=== PATIENT | female | born 1940 | race Caucasian/White ===

== ENCOUNTER → 2016-08-10 | Outpatient (CLI) | payer MEDICARE, BC | END | disposition home or self-care (01) | LOC: MAMMO 09:58 | PROVIDERS: ATTEND Family Medicine | DX: Z12.31 Encounter for screening mammogram for malignant neoplasm of breast (principal) ==

== ENCOUNTER → 2016-08-30 | Outpatient (CLI) | payer MEDICARE, BC | END | disposition home or self-care (01) | LOC: GMAB 11:33 | PROVIDERS: ATTEND Family Medicine | DX: E11.9 Type 2 diabetes mellitus without complications (principal); I10 Essential (primary) hypertension ==

== ENCOUNTER → 2017-01-17 | Outpatient (CLI) | payer MEDICARE, BC | END | disposition home or self-care (01) | LOC: GMAB 12:12 | PROVIDERS: ATTEND Family Medicine | DX: R06.02 Shortness of breath (principal) ==

== ENCOUNTER 2017-01-18 11:20 | Inpatient (IN) | payer MEDICARE, BC ==
--- NOTE | 2017-01-18 12:01 | HP ---
SUPERVISING PHYSICIAN: Raj Fuentes MD CHIEF COMPLAINT: Fever, shortness of breath. HISTORY OF PRESENT ILLNESS: Ms. Gomez is a 76-year-old, female patient of Dr. Anderson's. She started having some upper respiratory symptoms this week that included shortness of breath, coughing, fever and chills. She saw Dr. Anderson yesterday in the clinic at which time she did have a fever of 100.3. Saturation was 87% on room air. Flu swab and strep screen were completed, which were both negative. Lab work was also completed with a CBC and it showed her white count was 7,800, but she had a left shift. Radiographic studies were completed as well and per radiologic interpretation of two view chest, there was noted complete opacification of the left hemithorax which actually is chronic for her. She has had a total left lobectomy, but consolidations were noted. Dr. Anderson suggested that the patient be admitted to the hospital given that her saturation was 87% and she was significantly showing to be ill. However, the patient refused and requested to be treated at home. At that time, she was given a Rocephin shot and a prescription for Omnicef and Z-Vivek as well as DuoNeb nebulizer treatments. She was also given a prescription for oxygen. Apparently, she was unable to get the DuoNeb treatments or the oxygen overnight and progressively worsened. She presented back to Dr. Anderson's clinic this morning with worsening symptoms and showing a temperature of 100.6 with saturation 81% on room air. Given the past laboratory finding and clinical examination, Dr. Anderson requested that the patient be admitted to the hospital for treatment with more aggressive bronchodilator treatment, oxygen and initiation of antibiotic treatment for concern for developing pneumonia with the patient having failed to respond to outpatient treatment significantly with worsening symptoms. The patient is being directed admitted to the Medical/Surgical Floor. PAST MEDICAL HISTORY: 1. Type 2 diabetes mellitus. 2. Gastroesophageal reflux disease. 3. Hypertension. 4. Hypothyroidism. 5. Past pericardial effusions. 6. Lupus. 7. Lung cancer with a lung resection and left pneumonectomy in 2004. 8. History of syncope with a loop monitor in place, followed by Dr. Manuel. 9. Chronic obstructive pulmonary disease. PAST SURGICAL HISTORY: 1. Appendectomy. 2. Cholecystectomy. 3. Hernia repair. 4. Hysterectomy. 5. Lung resection with left pneumonectomy in 2004. 6. Previous pericardial window in 2005. MEDICATIONS: 1. Metformin 1000 mg b.i.d. 2. Calcium 200 mg daily. 3. Invokana 300 mg daily. 4. Vitamin B complex 1 tablet daily. 5. Aspirin 81 mg daily. 6. Ascorbic acid 500 mg daily. 7. Gabapentin 300 mg twice daily. 8. Lisinopril 20 mg daily. 9. Lantus 43 units at bedtime. 10. Hydrochlorothiazide 25 mg daily. 11. Multivitamin 1 tablet daily. 12. Metoprolol 25 mg b.i.d. 13. Meloxicam 15 mg at bedtime. 14. Evista 60 mg daily. 15. Potassium chloride 10 mEq daily. ALLERGIES: NO KNOWN DRUG ALLERGIES. FAMILY HISTORY: Father at age 68 due to lung cancer, diabetes and heart disease. Mother at age 68 due to emphysema. SOCIAL HISTORY: The patient is retired. She has worked as previous process engineer and seamstress. She is . She lives in [place], [place]. She does have a history of past cigarette smoking and quit in 1991. She has never drank alcohol. REVIEW OF SYSTEMS: CONSTITUTIONAL: Positive for chills, fever, but negative for fatigue or unintentional weight loss. RESPIRATORY: Positive for recent cough with increasing purulent sputum and increasing dyspnea at rest and hypoxia on room air. CARDIOVASCULAR: Denies chest pain or palpitations. She does have a remote history of syncopal episodes. GASTROINTESTINAL: Denies constipation, diarrhea, abdominal pain. GENITOURINARY: Denies dysuria, hematuria or other urinary symptoms. NEUROLOGIC: She denies ataxia, headaches or other neurologic symptoms. PHYSICAL EXAMINATION: VITAL SIGNS: From the clinic prior to admission, temperature 100.6. Blood pressure 160/86. Pulse 109. Respirations 16. O2 saturation 81% on room air. Admission weight 92.2 kg. GENERAL: The patient well-developed, well-nourished and appears to be in no acute distress. HEENT: Tympanic membranes clear bilaterally. Oropharynx is pink, moist without any lesions. NECK: Supple, nontender with full range of motion. CHEST: Breath sounds significantly decreased on the left. There is some notable expiratory wheezing on the right with just mild increased respiratory effort, but no accessory muscles utilized. CARDIOVASCULAR: Regular rate and rhythm without any appreciable murmurs, gallops, or rubs. ABDOMEN: Obese, but soft, nontender. Positive bowel sounds. EXTREMITIES: There is no cyanosis, clubbing or edema. NEUROLOGIC: The patient is alert and oriented times three. Cranial nerves II- XII are grossly intact. Facial features are symmetrical. Extraocular movements are within normal limits. There is no nystagmus noted. LABORATORY: CBC on admission showed white count 10,400 with hemoglobin 14.4, hematocrit 43.0, platelet count 131, left shift on the differential. Coagulation studies showed PT 12.6, PT-T 28.9. Chemistries showed normal electrolytes with carbon dioxide 29, BUN 18, creatinine 0.8, glucose 96, lactic acid 1.5. Liver functions within normal limits. Urinalysis showed greater than 300 protein, 500 glucose, 40 ketones. Microscopic showed 0 to 1 RBCs, 5 to 10 WBCs, 3 to 5 epithelials and rare bacteria. Digoxin level less than 0.3. MICROBIOLOGY: Sputum culture pending. Blood cultures pending. Strep screen in the clinic was negative for group A strep. Influenza A and B in the clinic was negative. RADIOLOGY: Chest x-ray on admission per radiologic interpretation of two view chest showed status post pneumonectomy with complete opacification of the left thorax, stable, with chronic interstitial thickening and scarring of the right lung without acute consolidative infiltrates. ASSESSMENT: 1. Acute exacerbation of chronic obstructive pulmonary disease having failed to respond to outpatient treatment for acute bronchitis, now concerning for developing community- acquired pneumonia. 2. Hypoxia as noted on room air saturations of 81%, secondary to #1. 3. Febrile illness, probably secondary to worsening acute bronchitis with developing right sided community-acquired pneumonia with flu swabs and strep screens being negative with sputum cultures pending. 4. Mild dehydration secondary to ongoing febrile illness. 5. Type 2 diabetes, on both oral and insulin therapy. 6. Gastroesophageal reflux disease. 7. Hypertension. 8. Hypothyroidism. 9. History of lupus. 10. History of left sided lung cancer with a total pneumonectomy in 2004. PLAN: The patient will be directly admitted to the hospital for initiation of treatment for her worsening exacerbation of chronic obstructive pulmonary disease with concern for developing pneumonia. She will be started on parenteral antibiotics to include Rocephin and azithromycin as well as corticosteroids. She will be provided oxygen per protocol to maintain O2 saturations 92% to 94%. She will be on DVT prophylaxis as per protocol. We will collect blood cultures prior to administration of antibiotics. We will start her on some IV fluids to help with the underlying dehydration with normal saline with 20 mEq of potassium at 80 mL an hour. We will also put her on Protonix for gastric protection. She will be on insulin sliding scale per protocol as well as long-acting insulin with Levemir as appropriate based on blood sugars. We will resume home medications once they have been updated and verified in the electronic medical record. We will anticipate her length of stay to be at least 2 to 3 days until she is clinically stable. Until then, we will continue to monitor the patient closely and treat appropriately. Once discharged, she will need close clinical followup with Dr. Anderson, her primary care provider. [facility][id number] [facility]
[2017-01-18] MEDS ORDERED: ACETAMINOPHEN 325 MG TAB PO PRN (12:05)
[2017-01-18] MEDS ORDERED: SODIUM CHLORIDE 0.9% (FLUSH) 10 ML SYG IV PRN (12:05)
[2017-01-18] MEDS ORDERED: ALBUTEROL SULFATE 2.5 MG/3 ML VIAL NEB PRN (12:05)
[2017-01-18] MEDS ORDERED: IPRATROPIUM/ALBUTEROL 3 ML VIAL NEB ONE (12:11)
[2017-01-18] MEDS: IPRATROPIUM/ALBUTEROL 3 ML VIAL INH SCH ×3 (12:21→19:51)
[2017-01-18] MEDS ORDERED: SODIUM CHL 0.9% 50ML MIN-BAG+ 50 ML IVPB ONE (13:11)
[2017-01-18] MEDS ORDERED: cefTRIAXone SODIUM 1 GM VIAL ONE (13:11)
[2017-01-18] MEDS: cefTRIAXone SODIUM 1 GM in SODIUM CHL 0.9% 50ML MIN-BAG+ 50 ML IVPB SCH (13:14)
[2017-01-18] MEDS: IV SET AND CAP CHANGE INJ INJ SCH (13:15)
[2017-01-18] MEDS ORDERED: DEXTROSE 50% 25 GM/50 ML SYG IV PRN (13:44)
[2017-01-18] MEDS ORDERED: GLUCAGON INJ 1 MG VIAL SUBCU PRN (13:44)
--- NOTE | 2017-01-18 13:47 | PCM.CORE ---
Physician DVT/VTE - Nurse DVT Assessment & Total Each Risk Factor Represents 3 Points: Age over 75 years, Medical PT with Hx of [place], CHF, Severe infection/sepsis Each Risk Factor Represents 2 Points: Malignancy (present/past) Each Risk Factor is 1 Point: Obesity (BMI >25), Serious Lung disease (pnemonia < 1month, COPD, emphysema,etc) DVT Assessment Score: 10 - 5 or more Very High Risk Treatments: Early Ambulation *, Sequential Compression Device Pharmacological: Enoxaparin 40mg SQ Daily
--- NOTE | 2017-01-18 13:48 | RAD ---
EXAM DESCRIPTION: Chest,2 Views CLINICAL HISTORY: Pneumonia COMPARISON: September 30, 2015 FINDINGS: Frontal and lateral views of the chest. Wireless electronic device seen over the left hemithorax. The patient is status post left pneumonectomy with complete opacification of the left hemithorax. Surgical clips are again seen in the left hemithorax. Again seen is stable mediastinal shift from the right to the left. Cardiac silhouette is obscured by overlying left hemithorax opacification. Chronic interstitial thickening again demonstrated of the right lung. No definite focal consolidative infiltrates demonstrated of the right lung. Right costophrenic angle is sharp. No pneumothorax. IMPRESSION: 1. Patient is status post left pneumonectomy with complete opacification of the left thorax, stable. 2. Chronic interstitial thickening/scarring of the right lung without acute consolidative infiltrates. 3. Other findings as above. Electronically signed by: Benjamin Mcqueen MD 01/18/2017 1:47 PM [facility]
[2017-01-18] MEDS ORDERED: SODIUM CHLORIDE 0.9% 250ML 250 ML ONE (14:09)
[2017-01-18] MEDS ORDERED: AZITHROMYCIN IV 500 MG VIAL IVPB ONE (14:09)
[2017-01-18] MEDS: AZITHROMYCIN IV 500 MG in SODIUM CHLORIDE 0.9% 250ML 250 ML IVPB SCH (14:11)
[2017-01-18] MEDS: ENOXAPARIN SODIUM 40 MG/0.4 ML SYG SUBCU SCH (14:11)
[2017-01-18] MEDS ORDERED: methylPREDNISolone SODIUM SUC 125 MG/2 ML VIAL IV ONE ×2 (14:23→16:30)
[2017-01-18] MEDS: INSULIN LISPRO 100 UNITS/ML PEN SUBCU SCH ×2 (16:36→21:00)
[2017-01-18] MEDS: METOPROLOL TARTRATE 25 MG TAB PO SCH (16:37)
[2017-01-18] MEDS: metFORMIN HCL 500 MG TAB PO SCH (16:37)
[2017-01-18] MEDS: KCL 20 MEQ/NS 1,000 ML IVS PRN (16:37)
[2017-01-18] MEDS ORDERED: PANTOPRAZOLE SODIUM IV 40 MG VIAL ONE (20:02)
[2017-01-18] MEDS: GABAPENTIN 300 MG CAP PO SCH (20:59)
[2017-01-18] MEDS: LISINOPRIL 10 MG TAB PO SCH (20:59)
[2017-01-18] MEDS: MELOXICAM 7.5 MG TAB PO SCH (20:59)
[2017-01-18] MEDS: methylPREDNISolone SODIUM SUC 40 MG/ML VIAL IV SCH (21:00)
[2017-01-18] MEDS ORDERED: METFORMIN HCL 1000 MG PO SCH (21:00)
[2017-01-19] MEDS: methylPREDNISolone SODIUM SUC 40 MG/ML VIAL IV SCH ×2 (02:50→08:05)
[2017-01-19] MEDS: KCL 20 MEQ/NS 1,000 ML IVS PRN (03:56)
[2017-01-19] MEDS ORDERED: PANTOPRAZOLE SODIUM IV 40 MG VIAL IV SCH (06:30)
[2017-01-19] MEDS: INSULIN LISPRO 100 UNITS/ML PEN SUBCU SCH ×4 (06:57→20:59)
[2017-01-19] MEDS ORDERED: ASPIRIN (CHEWABLE) 81 MG TAB ONE (07:02)
[2017-01-19] MEDS ORDERED: B COMPLEX 1 EA TAB ONE (07:02)
[2017-01-19] MEDS ORDERED: CALCIUM CARBONATE-VITAMIN D 500 MG TAB ONE (07:03)
[2017-01-19] MEDS ORDERED: ASCORBIC ACID 500 MG TAB ONE (07:03)
[2017-01-19] MEDS ORDERED: hydroCHLOROthiazide 25 MG TAB ONE (07:04)
[2017-01-19] MEDS: IPRATROPIUM/ALBUTEROL 3 ML VIAL INH SCH ×4 (07:23→20:40)
[2017-01-19] MEDS: metFORMIN HCL 500 MG TAB PO SCH ×2 (07:27→16:42)
[2017-01-19] MEDS: METOPROLOL TARTRATE 25 MG TAB PO SCH ×2 (07:27→16:42)
[2017-01-19] MEDS ORDERED: POTASSIUM CHLORIDE 10 MEQ TAB PO SCH (07:30)
--- NOTE | 2017-01-19 07:43 | RAD ---
EXAM DESCRIPTION: Chest,2 Views CLINICAL HISTORY: Pneumonia COMPARISON: January 18, 2017 FINDINGS: Two-view chest x-ray shows diffuse opacification of the left hemithorax with shift of the cardiomediastinal silhouette towards the left consistent with left pneumonectomy. Stable from previous. Cardiac monitoring device is seen over the lower left chest. Right lung is hyperinflated. Mild increased interstitial markings are seen similar to slightly improved in the right lower lobe compared previous exam. No new infiltrate or consolidation. No right pleural effusion. Osseous structures are unremarkable. IMPRESSION: Stable left pneumonectomy changes. Slightly less pronounced interstitial changes in the right lower lobe compared previous. Electronically signed by: Broderick Ortiz MD 01/19/2017 7:42 AM [employer]
[2017-01-19] MEDS: ENOXAPARIN SODIUM 40 MG/0.4 ML SYG SUBCU SCH (08:05)
[2017-01-19] MEDS: CALCIUM CARBONATE-VITAMIN D 500 MG TAB PO SCH (08:05)
[2017-01-19] MEDS: GABAPENTIN 300 MG CAP PO SCH ×2 (08:06→20:59)
[2017-01-19] MEDS: hydroCHLOROthiazide 25 MG TAB PO SCH (08:06)
[2017-01-19] MEDS: B COMPLEX 1 EA TAB PO SCH (08:06)
[2017-01-19] MEDS: ASCORBIC ACID 500 MG TAB PO SCH (08:06)
[2017-01-19] MEDS: ASPIRIN EC 81 MG TAB PO SCH (08:07)
[2017-01-19] MEDS: NON-FORMULARY MEDICATION 1 EA MIS (Canagliflozin [Invokana] 300 MG) PO SCH (08:11)
[2017-01-19] MEDS: NON-FORMULARY MEDICATION 1 EA MIS (Raloxifene Hcl [Evista] 60 MG) PO SCH (08:12)
[2017-01-19] MEDS: SODIUM CHLORIDE 0.9% (FLUSH) 10 ML SYG IV SCH ×2 (08:41→21:00)
[2017-01-19] MEDS ORDERED: CALCIUM 200 MG PO SCH (09:00)
[2017-01-19] MEDS: BIFIDOBACTERIUM INFANTIS 4 MG CAP PO SCH ×2 (10:32→20:59)
--- NOTE | 2017-01-19 10:46 | PN ---
DATE: 01/19/17 SUBJECTIVE: The patient is currently on her first day after admission to the hospital. She states she feels a little better and a little improved ability to function with less coughing and shortness of breath. She was getting progressively worse and failed outpatient management in the clinic. Chest x- ray today also showed some improvement. She is not on home oxygen and will need to have further evaluation as to whether she requires this as she goes home. She has had a previous history of a left pneumonectomy because of cancer a number of years ago. Appetite is fairly good. OBJECTIVE: VITAL SIGNS: Afebrile. Pulse 71. Blood pressure 125/76. Pulse oximetry 99% on 3 liters and she is cut down to 1.5 liters with repeat evaluation and ambulation studies to be initiated. LUNGS: Primarily on the right side of the chest and she does have some end- expiratory high frequency wheezing occasionally noted, especially anteriorly. Less coughing today. HEART: Tones are regular, though somewhat distance because of the left pneumonectomy. LABORATORY: White count stable at 7,700 with 91% neutrophils. Chemistries show potassium is up from 3.8 to 5.2 and BUN from 18 to 25, creatinine from 0.88 to 1.14. Glucose is 143. Osmolality increased up to 296. Sputum culture is pending. Blood cultures negative to date. Chest x-ray shows some slight improvement in the right lower lobe interstitial changes previously noted. ASSESSMENT: 1. Chronic obstructive pulmonary disease with an acute exacerbation with associated acute bronchitis, coughing and failing to respond to outpatient therapy. 2. Possible right lower lobe community acquired pneumonia, showing some radiographic and clinical improvement after initiation of therapy with Rocephin and azithromycin and final cultures pending. 3. Hypoxia initially noted with further investigation to continue to see if the patient will require home oxygen, which she has not been on in the past. 4. Acute bronchitis, having failed outpatient therapy with sputum culture pending. 5. Febrile illness, probably related to the respiratory infection as described above with cultures pending. 6. Mild dehydration, probably contributed to by the febrile illness. 7. Chronic type 2 diabetes, on oral and insulin therapy. 8. History of gastroesophageal reflux disease. 9. History of hypertension. 10. Hypothyroidism on supplementation. 11. History of lupus. 12. History of left sided lung cancer with a total pneumonectomy in 2004 because of lung cancer on the left. PLAN: We will continue current treatment course. Increase activity level with ambulation studies by Respiratory. Await sputum culture. Add Align probiotics to medication administration. Follow closely and adjust oxygen to what is required and to allow us to determine whether she will require oxygen at home. Elevated potassium is noted and will be followed closely with holding back on potassium supplementation at this time. Reevaluate in the morning. #[id number] [facility]
[2017-01-19] MEDS ORDERED: SODIUM CHL 0.9% 50ML MIN-BAG+ 50 ML IVPB ONE (11:57)
[2017-01-19] MEDS ORDERED: cefTRIAXone SODIUM 1 GM VIAL ONE (11:57)
[2017-01-19] MEDS: DIGOXIN 0.25 MG TAB PO SCH (11:59)
[2017-01-19] MEDS: cefTRIAXone SODIUM 1 GM in SODIUM CHL 0.9% 50ML MIN-BAG+ 50 ML IVPB SCH (12:01)
[2017-01-19] MEDS ORDERED: AZITHROMYCIN IV 500 MG VIAL IVPB ONE (13:19)
[2017-01-19] MEDS ORDERED: SODIUM CHLORIDE 0.9% 250ML 250 ML ONE (13:19)
[2017-01-19] MEDS: AZITHROMYCIN IV 500 MG in SODIUM CHLORIDE 0.9% 250ML 250 ML IVPB SCH (13:20)
[2017-01-19] MEDS: MELOXICAM 7.5 MG TAB PO SCH (20:59)
[2017-01-19] MEDS: LISINOPRIL 10 MG TAB PO SCH (20:59)
[2017-01-20] MEDS ORDERED: PANTOPRAZOLE SODIUM TAB 40 MG PO ONE (05:05)
[2017-01-20] MEDS: PANTOPRAZOLE SODIUM TAB 40 MG PO SCH (06:37)
[2017-01-20] MEDS: INSULIN LISPRO 100 UNITS/ML PEN SUBCU SCH ×4 (07:48→20:53)
[2017-01-20] MEDS: METOPROLOL TARTRATE 25 MG TAB PO SCH ×2 (07:48→16:57)
[2017-01-20] MEDS: metFORMIN HCL 500 MG TAB PO SCH ×2 (07:48→16:57)
[2017-01-20] MEDS: ENOXAPARIN SODIUM 40 MG/0.4 ML SYG SUBCU SCH (08:48)
[2017-01-20] MEDS: B COMPLEX 1 EA TAB PO SCH (08:48)
[2017-01-20] MEDS: CALCIUM CARBONATE-VITAMIN D 500 MG TAB PO SCH (08:48)
[2017-01-20] MEDS: BIFIDOBACTERIUM INFANTIS 4 MG CAP PO SCH ×2 (08:49→20:52)
[2017-01-20] MEDS: ASPIRIN EC 81 MG TAB PO SCH (08:49)
[2017-01-20] MEDS: NON-FORMULARY MEDICATION 1 EA MIS (Raloxifene Hcl [Evista] 60 MG) PO SCH (08:49)
[2017-01-20] MEDS: ASCORBIC ACID 500 MG TAB PO SCH (08:49)
[2017-01-20] MEDS: hydroCHLOROthiazide 25 MG TAB PO SCH (08:49)
[2017-01-20] MEDS: NON-FORMULARY MEDICATION 1 EA MIS (Canagliflozin [Invokana] 300 MG) PO SCH (08:49)
[2017-01-20] MEDS: SODIUM CHLORIDE 0.9% (FLUSH) 10 ML SYG IV SCH ×2 (08:49→20:54)
[2017-01-20] MEDS: GABAPENTIN 300 MG CAP PO SCH ×2 (08:49→20:52)
[2017-01-20] MEDS: IPRATROPIUM/ALBUTEROL 3 ML VIAL INH SCH ×4 (09:00→19:35)
[2017-01-20] MEDS ORDERED: SODIUM CHL 0.9% 50ML MIN-BAG+ 50 ML IVPB ONE (11:12)
[2017-01-20] MEDS ORDERED: AZITHROMYCIN 250 MG TAB PO ONE (11:12)
[2017-01-20] MEDS ORDERED: cefTRIAXone SODIUM 1 GM VIAL ONE (11:12)
[2017-01-20] MEDS: DIGOXIN 0.25 MG TAB PO SCH (11:27)
[2017-01-20] MEDS: cefTRIAXone SODIUM 1 GM in SODIUM CHL 0.9% 50ML MIN-BAG+ 50 ML IVPB SCH (11:30)
[2017-01-20] MEDS ORDERED: TEMAZEPAM 15 MG CAP PO PRN (13:17)
[2017-01-20] MEDS: predniSONE 10 MG TAB PO SCH (13:58)
[2017-01-20] MEDS: AZITHROMYCIN 250 MG TAB PO SCH (13:58)
--- NOTE | 2017-01-20 14:14 | PN ---
DATE: 01/20/17 SUBJECTIVE: The patient did not get much sleep at all last evening. She feels very tired. She is having increasing difficulty with clearing secretions. She was coughing a lot of the night last night. The sputum has no hemoptysis, but it is quite tenacious and is requiring some effort by respiratory therapy to assist with clearing. The patient did at 1 o'clock AM have fairly significant left labial bleeding, which has happened before. Straight cath was introduced into the bladder to make sure there was no gross hematuria, which there was none. It appears to be coming from a small crack in the labia, which will require [facility] evaluation and treatment as indicated. OBJECTIVE: VITAL SIGNS: See vital signs. LUNGS: Some more prominent rhonchi with secretions in the major airways today. She is to continue with her bronchodilators and saline inhalation therapy as well as the flutter valve and will continue with increased efforts of right side up with postural percussion and drainage. HEART: Tones are doing well. ABDOMEN: Soft. LABORATORY: White count 17,600 with 90% neutrophils, probably as a result of several doses of fairly vigorous corticosteroid administration received earlier in her hospital course. Chemistries showed potassium 3.7, sodium 139, BUN 33, creatinine 1.17. Since hospitalization, she has not been receiving her 43 units of Lantus insulin at bedtime and has only been on the sliding scale. As of this morning, fasting was 88, showing she is requiring less insulin, possibly from her illness, but also from the diabetic diet that she is now on. Sputum culture shows preliminarily some yeast with no bacterial growth at 24 hours with final report by tomorrow. If yeast persists, must consider a course of some Diflucan coverage. ASSESSMENT: 1. Chronic obstructive pulmonary disease with an acute exacerbation with associated acute bronchitis, coughing and failing to respond to outpatient therapy. 2. Possible right lower lobe community acquired pneumonia, showing some radiographic and clinical improvement after initiation of therapy with Rocephin and azithromycin and final cultures pending. 3. Hypoxia initially noted with further investigation to continue to see if the patient will require home oxygen, which she has not been on in the past. 4. Acute bronchitis, having failed outpatient therapy with sputum culture pending. 5. Febrile illness, probably related to the respiratory infection as described above with cultures pending. 6. Mild dehydration, probably contributed to by the febrile illness. 7. Chronic type 2 diabetes, on oral and insulin therapy. 8. History of gastroesophageal reflux disease. 9. History of hypertension. 10. Hypothyroidism on supplementation. 11. History of lupus. 12. History of left sided lung cancer with a total pneumonectomy in 2004 because of lung cancer on the left. PLAN: The patient will be offered some melatonin tonight as well as an as needed Restoril to ensure an improved quality and duration of sleep tonight seeing that she hopefully will be feeling better in the morning and ready for her continued strengthening and rehabilitation at home. Continue respiratory treatments. We will start Levemir insulin tonight at bedtime at only 20 units and observe response. Await sputum culture in the morning. If fungal elements are again noted, consider a Diflucan course of therapy. Because of her bronchitis and her respiratory symptoms, she may require a low dose prednisone 10 mg a day for 6 to 8 days after discharge and may try a few days course of antibiotics by mouth starting tomorrow with close followup with Dr. Anderson. If the bleeding is again noted, Dr. Anderson is willing to refer her to [facility] clinic for evaluation of a possible tear on the left labial fold as a contributory cause of the bleeding with pressure to be applied in the meantime by the patient. Reevaluation in the morning. [facility][id number] [facility]
[2017-01-20] MEDS ORDERED: MELATONIN 3 MG TAB ONE (19:47)
[2017-01-20] MEDS ORDERED: INSULIN DETEMIR 100 UNITS/ML PEN SUBCU ONE (19:48)
[2017-01-20] MEDS: MELATONIN 3 MG TAB PO SCH (20:51)
[2017-01-20] MEDS: MELOXICAM 7.5 MG TAB PO SCH (20:52)
[2017-01-20] MEDS: INSULIN DETEMIR 100 UNITS/ML PEN SUBCU SCH (20:52)
[2017-01-20] MEDS: LISINOPRIL 10 MG TAB PO SCH (20:52)
[2017-01-20] MEDS: BENZONATATE PERLES 100 MG CAP PO PRN (21:15)
[2017-01-21] MEDS: PANTOPRAZOLE SODIUM TAB 40 MG PO SCH (06:27)
[2017-01-21] MEDS: METOPROLOL TARTRATE 25 MG TAB PO SCH ×2 (07:26→17:22)
[2017-01-21] MEDS: INSULIN LISPRO 100 UNITS/ML PEN SUBCU SCH ×4 (07:27→21:07)
[2017-01-21] MEDS: metFORMIN HCL 500 MG TAB PO SCH ×2 (07:50→17:21)
[2017-01-21] MEDS: IPRATROPIUM/ALBUTEROL 3 ML VIAL INH SCH ×4 (08:36→19:30)
[2017-01-21] MEDS: hydroCHLOROthiazide 25 MG TAB PO SCH (09:54)
[2017-01-21] MEDS: ASPIRIN EC 81 MG TAB PO SCH (09:55)
[2017-01-21] MEDS: BIFIDOBACTERIUM INFANTIS 4 MG CAP PO SCH ×2 (09:55→21:11)
[2017-01-21] MEDS: SODIUM CHLORIDE 0.9% (FLUSH) 10 ML SYG IV SCH ×2 (09:55→21:12)
[2017-01-21] MEDS: predniSONE 10 MG TAB PO SCH (09:55)
[2017-01-21] MEDS: ASCORBIC ACID 500 MG TAB PO SCH (09:55)
[2017-01-21] MEDS: CALCIUM CARBONATE-VITAMIN D 500 MG TAB PO SCH (09:55)
[2017-01-21] MEDS: GABAPENTIN 300 MG CAP PO SCH ×2 (09:55→21:11)
[2017-01-21] MEDS: B COMPLEX 1 EA TAB PO SCH (09:55)
[2017-01-21] MEDS: ENOXAPARIN SODIUM 40 MG/0.4 ML SYG SUBCU SCH (09:55)
[2017-01-21] MEDS: NON-FORMULARY MEDICATION 1 EA MIS (Raloxifene Hcl [Evista] 60 MG) PO SCH (10:09)
[2017-01-21] MEDS: NON-FORMULARY MEDICATION 1 EA MIS (Canagliflozin [Invokana] 300 MG) PO SCH (10:09)
[2017-01-21] MEDS ORDERED: methylPREDNISolone SODIUM SUC 125 MG/2 ML VIAL IV ONE (11:01)
[2017-01-21] MEDS ORDERED: SODIUM CHL 0.9% 50ML MIN-BAG+ 50 ML IVPB ONE (12:21)
[2017-01-21] MEDS ORDERED: FLUCONAZOLE IV 100 ML IVPB ONE (12:21)
[2017-01-21] MEDS ORDERED: cefTRIAXone SODIUM 1 GM VIAL ONE (12:22)
[2017-01-21] MEDS: DIGOXIN 0.25 MG TAB PO SCH (12:23)
[2017-01-21] MEDS: FLUCONAZOLE IV 200 MG in PREMIX BAG 1 BAG IVPB SCH (12:32)
[2017-01-21] MEDS: cefTRIAXone SODIUM 1 GM in SODIUM CHL 0.9% 50ML MIN-BAG+ 50 ML IVPB SCH (12:35)
[2017-01-21] MEDS: IV SET AND CAP CHANGE INJ INJ SCH (12:41)
--- NOTE | 2017-01-21 13:17 | PN ---
SUPERVISING PHYSICIAN: Raj Fuentes MD DATE: 01/21/17 SUBJECTIVE: The patient is sitting in her hospital bed. She complains of shortness of breath and coughing. Her nurse reports that she has periodic string coughing spells that cause her to be very short of breath. She denies any chest pain, nausea, vomiting or diarrhea. She feels she is just not getting better. OBJECTIVE: VITAL SIGNS: Temperature 98. Pulse 68. Blood pressure 153/90. Respiratory rate 23 to 26 breaths per minute. O2 saturation 92%. LUNGS: Expiratory wheezing in the right upper airways as well as scattered rhonchi with diminished sounds at the right base. She is quite dyspneic, especially after coughing and can only speak in short phrases. Respiratory rate after coughing is approximately 24 to 30 breaths per minute. CARDIAC: Bradycardic to regular rate. Heart rate is in the upper 40s to the mid 60s. ABDOMEN: Soft, nondistended, nontender. Bowel sounds are positive. EXTREMITIES: No cyanosis, clubbing or edema. NEUROLOGIC: Awake, alert and oriented times three. LABORATORY: Electrolytes are basically within normal limits with BUN 26, creatinine 1.01. CBC shows WBC 7.9 with hemoglobin 13.7, hematocrit 41.5, neutrophils 79.9. Preliminary sputum cultures show heavy growth of budding yeast. Preliminary blood cultures show no growth after 48 hours. All other labs and films have been reviewed via the EMR. ASSESSMENT: 1. Chronic obstructive pulmonary disease with an acute exacerbation with associated bronchitis with coughing and failing to respond to outpatient therapy. 2. Possible right lower lobe community acquired pneumonia, showing some radiographic and clinical improvement after initiation of therapy with Rocephin and azithromycin and final cultures pending. 3. Hypoxia initially noted with further investigation to continue to see if the patient will require home oxygen. She has not been on home oxygen in the past. 4. Acute bronchitis, having failed outpatient therapy. 5. Febrile illness, most likely related to the respiratory infection. 6. Mild dehydration, now improved. 7. Type diabetes mellitus. 8. Gastroesophageal reflux disease. 9. Hypertension. 10. Hypothyroidism. 11. History of lupus. 12. History of left sided lung cancer with a total pneumonectomy in 2004 because of lung cancer on the left. PLAN: We will continue present supportive care including present antibiotics and pulmonary hygiene. I have encouraged her to continue with good pulmonary hygiene. We will still need an evaluation to see if she needs oxygen at home. At some point, we may have to discharge the patient from Acute Care and put her in Swing Bed admission. She continues to eat poorly although she does not feel very well. I will continue her present dosing of long-acting insulin. I will add some Diflucan and will initiate a higher dose of IV steroids as she has not improved greatly over the last several days. I will get a physical therapy evaluation for Swing Bed admission. We will also continue with the ambulation studies. She will also may need a gynecological referral when discharged due to the vaginal bleeding that most likely was due to a break in the skin in her vulva area. Otherwise, we will continue to monitor the patient closely and follow as needed. Dr. Fuentes is the collaborating physician and available for consultation. #[id number] [facility]
[2017-01-21] MEDS: AZITHROMYCIN 250 MG TAB PO SCH (14:28)
[2017-01-21] MEDS: methylPREDNISolone SODIUM SUC 125 MG/2 ML VIAL IV SCH (17:00)
[2017-01-21] MEDS: INSULIN DETEMIR 100 UNITS/ML PEN SUBCU SCH (21:06)
[2017-01-21] MEDS: LISINOPRIL 10 MG TAB PO SCH (21:11)
[2017-01-21] MEDS: MELATONIN 3 MG TAB PO SCH (21:11)
[2017-01-21] MEDS: MELOXICAM 7.5 MG TAB PO SCH (21:11)
[2017-01-21] MEDS: BENZONATATE PERLES 100 MG CAP PO PRN (21:13)
[2017-01-22] MEDS: methylPREDNISolone SODIUM SUC 125 MG/2 ML VIAL IV SCH ×3 (00:25→16:51)
[2017-01-22] MEDS: PANTOPRAZOLE SODIUM TAB 40 MG PO SCH (06:11)
[2017-01-22] MEDS: IPRATROPIUM/ALBUTEROL 3 ML VIAL INH SCH ×4 (07:14→20:05)
--- NOTE | 2017-01-22 07:43 | RAD ---
EXAM DESCRIPTION: Chest,2 Views CLINICAL HISTORY: Pneumonia COMPARISON: January 19, 2017 and September 30, 2015 TECHNIQUE: PA/lateral FINDINGS: Chronic opacification left hemithorax status post left pneumonectomy. Coarse interstitial markings on the right are stable. No dense consolidation on the right. No effusion on the right. IMPRESSION: 1. Chronic changes, no acute process observed. Electronically signed by: Henrique Urbano MD 01/22/2017 7:42 AM [employer]
[2017-01-22] MEDS: metFORMIN HCL 500 MG TAB PO SCH ×2 (07:53→16:45)
[2017-01-22] MEDS: METOPROLOL TARTRATE 25 MG TAB PO SCH ×2 (07:53→16:45)
[2017-01-22] MEDS: INSULIN LISPRO 100 UNITS/ML PEN SUBCU SCH ×4 (07:54→21:30)
[2017-01-22] MEDS: BIFIDOBACTERIUM INFANTIS 4 MG CAP PO SCH ×2 (08:25→21:02)
[2017-01-22] MEDS: CALCIUM CARBONATE-VITAMIN D 500 MG TAB PO SCH (08:25)
[2017-01-22] MEDS: hydroCHLOROthiazide 25 MG TAB PO SCH (08:25)
[2017-01-22] MEDS: ASCORBIC ACID 500 MG TAB PO SCH (08:25)
[2017-01-22] MEDS: NON-FORMULARY MEDICATION 1 EA MIS (Raloxifene Hcl [Evista] 60 MG) PO SCH (08:26)
[2017-01-22] MEDS: NON-FORMULARY MEDICATION 1 EA MIS (Canagliflozin [Invokana] 300 MG) PO SCH (08:26)
[2017-01-22] MEDS: B COMPLEX 1 EA TAB PO SCH (08:26)
[2017-01-22] MEDS: ASPIRIN EC 81 MG TAB PO SCH (08:26)
[2017-01-22] MEDS: GABAPENTIN 300 MG CAP PO SCH ×2 (08:26→21:02)
[2017-01-22] MEDS: SODIUM CHLORIDE 0.9% (FLUSH) 10 ML SYG IV SCH ×2 (08:26→21:14)
[2017-01-22] MEDS: ENOXAPARIN SODIUM 40 MG/0.4 ML SYG SUBCU SCH (08:26)
[2017-01-22] MEDS ORDERED: methylPREDNISolone SODIUM SUC 40 MG/ML VIAL IV SCH (08:30)
[2017-01-22] MEDS ORDERED: METOPROLOL TARTRATE 25 MG TAB PO SCH (09:00)
[2017-01-22] MEDS ORDERED: FLUCONAZOLE IV 100 ML IVPB ONE (11:58)
[2017-01-22] MEDS ORDERED: SODIUM CHL 0.9% 50ML MIN-BAG+ 50 ML IVPB ONE (11:58)
[2017-01-22] MEDS ORDERED: cefTRIAXone SODIUM 1 GM VIAL ONE (11:58)
[2017-01-22] MEDS: FLUCONAZOLE IV 200 MG in PREMIX BAG 1 BAG IVPB SCH (12:19)
[2017-01-22] MEDS: DIGOXIN 0.25 MG TAB PO SCH (12:19)
[2017-01-22] MEDS: AZITHROMYCIN 250 MG TAB PO SCH (13:32)
[2017-01-22] MEDS: cefTRIAXone SODIUM 1 GM in SODIUM CHL 0.9% 50ML MIN-BAG+ 50 ML IVPB SCH (14:11)
[2017-01-22] MEDS ORDERED: METOPROLOL TARTRATE 25 MG TAB ONE (15:39)
--- NOTE | 2017-01-22 17:29 | PN ---
DATE: 01/22/17 SUPERVISING PHYSICIAN: Raj Fuentes M.D. SUBJECTIVE: The patient is sitting in bed. Complains of a nonproductive cough and shortness of breath, but denies chest pain, nausea, vomiting or diarrhea. She really gets weak when she tries to transfer or ambulate and is having a difficult time catching her breath. She also has coughing spells that seem to make her shortness of breath much worse. OBJECTIVE: VITAL SIGNS: She is afebrile. Heart rate 56, it has dropped as low as 48. Blood pressure 163/82, respiratory rate 20, it has gotten up as high as 22 to 24. O2 sats are 94%. Output is -660 mL and she had a 1.4 kg weight loss since admission. RESPIRATORY: Scattered rhonchi throughout the right lung but no expiratory wheezing noted. She becomes quite dyspneic with any exertion. Respiratory rate at this time is 24 breaths per minute. CARDIAC: Bradycardic rate, regular rhythm. ABDOMEN: Soft, nondistended, non-tender. Bowel sounds are positive. EXTREMITIES: No cyanosis, clubbing or edema. LABORATORY: White count has stabilized at 6.3 with hemoglobin 13.6, hematocrit 41.3. Blood sugars are now 184 to 130. Sodium 138, potassium 4.4, chloride 99 , BUN 26, creatinine 1.04. Preliminary blood cultures after 4 days showed no growth. RADIOLOGY: Chest x-ray showed chronic changes with no acute process observed. All other labs and films have been reviewed via the EMR. ASSESSMENT: 1. Chronic obstructive pulmonary disease with an acute exacerbation with associated bronchitis with coughing and failing to respond to outpatient therapy. 2. Possible right lower lobe community acquired pneumonia, showing some radiographic and clinical improvement after initiation of therapy with Rocephin and azithromycin and final cultures pending. 3. Hypoxia initially noted and will need supplemental oxygen on discharge home. Supplemental oxygen has been ordered from the medical supply. 4. Acute bronchitis, having failed outpatient therapy. 5. Febrile illness, most likely related to the respiratory infection. 6. Mild dehydration, now improved. 7. Type diabetes mellitus. 8. Gastroesophageal reflux disease. 9. Hypertension. 10. Hypothyroidism. 11. History of lupus. 12. History of left sided lung cancer with a total pneumonectomy in 2004 because of lung cancer on the left. PLAN: We will continue present supportive care. She had an evaluation by Physical Therapy and she will qualify for Swing Bed, so we will discharge her from the Acute Care setting tomorrow and readmit her to Swing Bed for strengthening and conditioning per Physical Therapy. Due to her history with a left pneumonectomy, she would benefit from several days of Swing Bed admission for strengthening and her shortness of breath she also has her home oxygen that has been ordered. She has had several bouts with her heart rate that has dropped into the 40s so I have decreased her Metoprolol to 12.5 mg b.i.d. I have also tapered her Solu-Medrol down. Hopefully she can change to oral Prednisone tomorrow. Her Levemir is still at 20 units at h.s. She usually takes 23 at h.s. At this point, her blood sugars have somewhat stabilized so we may need to readjust and continue on the lower dosing of long-acting insulin during Swing Bed admission, but we will need to reevaluate that. Meanwhile we will continue to monitor the patient closely and follow as needed. Dr. Fuentes is the collaborating physician available for consultation. [id number]
[2017-01-22] MEDS: LISINOPRIL 10 MG TAB PO SCH (21:01)
[2017-01-22] MEDS: MELOXICAM 7.5 MG TAB PO SCH (21:02)
[2017-01-22] MEDS: MELATONIN 3 MG TAB PO SCH (21:02)
[2017-01-22] MEDS: BENZONATATE PERLES 100 MG CAP PO PRN (21:07)
[2017-01-22] MEDS: INSULIN DETEMIR 100 UNITS/ML PEN SUBCU SCH (21:30)
[2017-01-22] MEDS: methylPREDNISolone SODIUM SUC 40 MG/ML VIAL IV SCH (23:48)
[2017-01-23] MEDS: PANTOPRAZOLE SODIUM TAB 40 MG PO SCH (06:21)
[2017-01-23] MEDS: INSULIN LISPRO 100 UNITS/ML PEN SUBCU SCH ×4 (07:51→21:15)
[2017-01-23] MEDS: metFORMIN HCL 500 MG TAB PO SCH ×2 (07:52→16:51)
[2017-01-23] MEDS: METOPROLOL TARTRATE 25 MG TAB PO SCH ×2 (07:53→16:50)
[2017-01-23] MEDS: IPRATROPIUM/ALBUTEROL 3 ML VIAL INH SCH ×4 (08:24→20:35)
[2017-01-23] MEDS: methylPREDNISolone SODIUM SUC 40 MG/ML VIAL IV SCH (09:28)
[2017-01-23] MEDS: ENOXAPARIN SODIUM 40 MG/0.4 ML SYG SUBCU SCH (09:29)
[2017-01-23] MEDS: BIFIDOBACTERIUM INFANTIS 4 MG CAP PO SCH ×2 (09:29→20:33)
[2017-01-23] MEDS: ASCORBIC ACID 500 MG TAB PO SCH (09:29)
[2017-01-23] MEDS: hydroCHLOROthiazide 25 MG TAB PO SCH (09:29)
[2017-01-23] MEDS: CALCIUM CARBONATE-VITAMIN D 500 MG TAB PO SCH (09:29)
[2017-01-23] MEDS: ASPIRIN EC 81 MG TAB PO SCH (09:29)
[2017-01-23] MEDS: B COMPLEX 1 EA TAB PO SCH (09:29)
[2017-01-23] MEDS: GABAPENTIN 300 MG CAP PO SCH ×2 (09:30→20:32)
[2017-01-23] MEDS: SODIUM CHLORIDE 0.9% (FLUSH) 10 ML SYG IV SCH ×2 (09:30→20:41)
[2017-01-23] MEDS: NON-FORMULARY MEDICATION 1 EA MIS (Raloxifene Hcl [Evista] 60 MG) PO SCH (09:30)
[2017-01-23] MEDS: NON-FORMULARY MEDICATION 1 EA MIS (Canagliflozin [Invokana] 300 MG) PO SCH (09:30)
[2017-01-23] MEDS ORDERED: SODIUM CHL 0.9% 50ML MIN-BAG+ 50 ML IVPB ONE (12:01)
[2017-01-23] MEDS ORDERED: FLUCONAZOLE IV 100 ML IVPB ONE (12:01)
[2017-01-23] MEDS ORDERED: cefTRIAXone SODIUM 1 GM VIAL ONE (12:01)
[2017-01-23] MEDS: FLUCONAZOLE IV 200 MG in PREMIX BAG 1 BAG IVPB SCH (12:05)
[2017-01-23] MEDS: DIGOXIN 0.25 MG TAB PO SCH (12:06)
[2017-01-23] MEDS ORDERED: levoFLOXacin 500MG IV 0 ML IVPB ONE (13:09)
[2017-01-23] MEDS ORDERED: BISACODYL SUPPOSITORY 10 MG PR ONE (13:52)
[2017-01-23] MEDS ORDERED: MAGNESIUM HYDROXIDE 30 ML UD PO ONE (13:52)
[2017-01-23] MEDS: cefTRIAXone SODIUM 1 GM in SODIUM CHL 0.9% 50ML MIN-BAG+ 50 ML IVPB SCH (14:21)
--- NOTE | 2017-01-23 14:36 | RAD ---
EXAM DESCRIPTION: Abdomen Flat Upright CLINICAL HISTORY: 76 years Female, abdominal LLQ , Obstipation COMPARISON: None. FINDINGS: There is complete opacification of visualized portions of the left hemithorax, at least partially related to superimposed mediastinal structures. No free subdiaphragmatic gas. No bowel obstruction. No suspicious intra-abdominal calcification or mass. IMPRESSION: No obstruction or other acute intra-abdominal abnormality. Abnormal appearance of the left hemithorax at least partially related to superimposed mediastinal structures. Pneumonia and/or left-sided effusion are not excluded. If clinically suspicious, PA and lateral chest radiograph recommended. Electronically signed by: German Hernández MD 01/23/2017 2:35 PM ANALYTICAL LAB TECHNICIAN
--- NOTE | 2017-01-23 16:31 | PN ---
DATE: 01/23/17 SUPERVISING PHYSICIAN: Raj Fuentes M.D. SUBJECTIVE: The patient was supposed to go to Swing Bed today but she had a syncopal episode while sitting on the toilet attempting to have a bowel movement this morning. She did not fall off the toilet and was attended to safely with no evidence of additional mental status changes. She noted that she felt like she needed to have a bowel movement and was sitting on the toilet for a length of time, and was straining at which time she passed out. OBJECTIVE: VITAL SIGNS: Temperature 97.8, pulse 91, blood pressure 158/91, respirations 19, satting 93% on room air. I's and O's show a positive balance of 160 with 1710 in, 1550 out. She has had several bowel movements but notes that they were small in caliber and she has to strain in efforts to have any efforts in bowel movements. Weight is 94.0 kg. CHEST: Lungs no obvious wheezing, just some very faint rhonchi heard throughout on the right with some increased respiratory effort with any exertional effort. HEART: Regular rate and rhythm. ABDOMEN: Soft with some mild tenderness diffusely across the lower abdomen but no rebound tenderness. Bowel sounds are present. EXTREMITIES: No cyanosis, clubbing or edema. LABORATORY: No additional chemistries or hematology was completed. She continues to show stabilization of her blood sugars between 149 to 245. MICROBIOLOGY: Blood cultures remain negative at 5 days. Sputum culture final showed just growth of yeast. RADIOLOGY: Abdominal x-ray upright and flat showed no obstruction or other acute intraabdominal abnormalities per radiology interpretation. ASSESSMENT: 1. Chronic obstructive pulmonary disease with an acute exacerbation with bronchitis having failed to respond to outpatient treatment plan requiring hospitalization for the initiation of bronchial hygiene and parenteral antibiotics. 2. Right lower lobe pneumonia community acquired showing radiographic and clinical improvement after initiation of antibiotic therapy with Rocephin and Azithromycin with final culture results just showing growth of yeast. 3. Syncopal episode secondary to constipation and vagal response. 4. Hypoxia on admission and continuation showing need for home oxygen therapy. 5. Acute bronchitis having failed outpatient treatment therapy. 6. Febrile illness related to upper respiratory infection as noted in #1. 7. Mild dehydration, improved with IV fluids. 8. Type 2 diabetes mellitus, stable. 9. Gastroesophageal reflux disease. 10. Hypertension, stable. 11. Hypothyroidism. 12. History of lupus. 13. History of left sided lung cancer with a total pneumonectomy in 2004 because of lung cancer on the left. 14. Moderate constipation resulting in a vagal response with syncope. PLAN: The plan was to discharge the patient today to Swing Bed for ongoing physical therapy and reconditioning, however given that she did have a syncopal episode, the patient will remain in Acute Care for an additional 24 hours of close observation, monitoring and further laboratory testing. She does appear to be quite constipated even though she is having small bowel movements, therefore will give her some Milk of Magnesia and a Dulcolax suppository. She will be on oral prednisone today and continued low dose Metoprolol 12.5 mg b.i.d. Will continue with Levemir for blood sugars and sliding scale as she is showing to be stable. Until discharge tomorrow to Swing Bed with anticipation of no additional acute findings, will continue to monitor the patient and treat appropriately. #[id number] [facility]
[2017-01-23] MEDS: MELOXICAM 7.5 MG TAB PO SCH (20:32)
[2017-01-23] MEDS: LISINOPRIL 10 MG TAB PO SCH (20:33)
[2017-01-23] MEDS: MELATONIN 3 MG TAB PO SCH (20:33)
[2017-01-23] MEDS: INSULIN DETEMIR 100 UNITS/ML PEN SUBCU SCH (21:16)
[2017-01-24] MEDS: PANTOPRAZOLE SODIUM TAB 40 MG PO SCH (06:33)
--- NOTE | 2017-01-24 07:22 | RAD ---
Two view chest INDICATION: Pneumonia COMPARISON: January 22 IMPRESSION: Diffuse opacification/whiteout of the left hemithorax. Small amount of aeration near the left hilum. Postsurgical changes suggesting pneumonectomy or partial pneumonectomy. Similar appearance overall. Overlying electronic device over the left lung base. Right lung is aerated and stable. Linear scarring right upper lung stable. Otherwise stable chest Electronically signed by: Navi Will MD 01/24/2017 7:21 AM [facility]
[2017-01-24] MEDS ORDERED: predniSONE 20 MG TAB ONE (07:39)
[2017-01-24] MEDS: METOPROLOL TARTRATE 25 MG TAB PO SCH (07:48)
[2017-01-24] MEDS: metFORMIN HCL 500 MG TAB PO SCH (07:48)
[2017-01-24] MEDS: INSULIN LISPRO 100 UNITS/ML PEN SUBCU SCH (07:49)
[2017-01-24] MEDS: hydroCHLOROthiazide 25 MG TAB PO SCH (08:18)
[2017-01-24] MEDS: BIFIDOBACTERIUM INFANTIS 4 MG CAP PO SCH (08:18)
[2017-01-24] MEDS: CALCIUM CARBONATE-VITAMIN D 500 MG TAB PO SCH (08:18)
[2017-01-24] MEDS: B COMPLEX 1 EA TAB PO SCH (08:18)
[2017-01-24] MEDS: ASPIRIN EC 81 MG TAB PO SCH (08:18)
[2017-01-24] MEDS: GABAPENTIN 300 MG CAP PO SCH (08:18)
[2017-01-24] MEDS: NON-FORMULARY MEDICATION 1 EA MIS (Canagliflozin [Invokana] 300 MG) PO SCH (08:19)
[2017-01-24] MEDS: ENOXAPARIN SODIUM 40 MG/0.4 ML SYG SUBCU SCH (08:19)
[2017-01-24] MEDS: NON-FORMULARY MEDICATION 1 EA MIS (Raloxifene Hcl [Evista] 60 MG) PO SCH (08:20)
[2017-01-24] MEDS: SODIUM CHLORIDE 0.9% (FLUSH) 10 ML SYG IV SCH (08:20)
[2017-01-24] MEDS: ASCORBIC ACID 500 MG TAB PO SCH (08:22)
[2017-01-24] MEDS: IPRATROPIUM/ALBUTEROL 3 ML VIAL INH SCH (08:58)
[2017-01-24] MEDS ORDERED: predniSONE 20 MG TAB PO SCH (09:00)
[2017-01-24 10:21] VITALS: BP 133/71; TEMP 98.2; O2SAT 100
--- NOTE | 2017-01-31 08:50 | DS ---
SUPERVISING PHYSICIAN: Palmer Sanchez MD DISCHARGE DIAGNOSIS: 1. Chronic obstructive pulmonary disease with an acute exacerbation with bronchitis having failed to respond to outpatient treatment plan requiring hospitalization on Acute Care for the initiation of bronchial hygiene and parenteral antibiotics with the patient having significant deconditioning and requiring admission to Swing Bed for ongoing rehab and reconditioning. 2. Right lower lobe pneumonia, community acquired, showing good clinical response to antibiotic therapy having been on Rocephin and azithromycin full course of antibiotics with final culture results show no bacterial growth , only growth of yeast. 3. Syncopal episode secondary to constipation and vagal response with the patient having a history of previous syncopal episodes on a loop monitor followed by Dr. Manuel. 4. Hypoxia on admission and showing continued need for home oxygen therapy. 5. Type 2 diabetes, stable. 6. Gastroesophageal reflux disease. 7. Hypertension, stable. 8. Hypothyroidism, on supplementation. 9. History of lupus. 10. History of left sided lung cancer with a total pneumonectomy in 2004. 11. Moderate constipation resulting in a vagal response on Acute Care, resolved with stool softeners. REASON FOR HOSPITALIZATION: Ms. Gomez is a 76-year-old, female patient of Dr. Anderson's. She started having some upper respiratory symptoms the week before that included shortness of breath, coughing, fever and chills. She saw Dr. Anderson on 01/17/17 in the clinic at which time she did have a fever of 100.3. Saturation was 87% on room air. Flu swab and strep screen were completed, which were both negative. Lab work was also completed with a CBC and it showed her white count was 7,800, but she had a left shift. Radiographic studies were completed as well and per radiologic interpretation of two view chest, there was noted complete opacification of the left hemithorax which actually is chronic for her. She also had a consolidation on the right. Dr. Anderson suggested that the patient be admitted to the hospital given that her saturation was 87% and she was significantly showing to be ill. However, the patient refused and requested to be treated at home. At that time , she was given a Rocephin shot and a prescription for Omnicef and Z-Vivek as well as DuoNeb nebulizer treatments. She was also given a prescription for oxygen. Apparently, she was unable to get the DuoNeb treatments or the oxygen overnight and progressively worsened. She presented back to Dr. Anderson's clinic the morning of 01/18/17 with worsening symptoms and showing a temperature of 100.6 with saturation 81% on room air. Given the past laboratory finding and clinical examination, Dr. Anderson requested that the patient be admitted to the hospital for treatment with more aggressive bronchodilator treatment, oxygen and initiation of antibiotic treatment for concern for developing pneumonia with the patient having failed to respond to outpatient treatment plan. She was started on treatment on 01/18/17 for exacerbation of chronic bronchitis with community acquired pneumonia, right lower lobe. She was initially started on Rocephin and azithromycin parenterally and showed good improvement. She completed a course of antibiotic therapy with Rocephin and azithromycin and was showing good improvement with regards to her chronic obstructive pulmonary disease and resolution of her pneumonia. However, given the lengthy hospitalization, her weakness and severity of her condition, physical therapy evaluation suggested the patient be admitted to Swing Bed for ongoing physical therapy to help with reconditioning and strengthening to ensure the patient was safe to discharge. The patient was admitted to Swing Bed, however, it should be noted that the patient's at home on the same night of her discharge and the family notified the patient that morning that her had at home. On that morning, she was fairly well and after a long discussion regarding discharging home or staying in Swing Bed, the patient opted to stay in Swing Bed as long as she could have a pass to attend her 's . She was then admitted to Swing Bed. LABORATORY: Initial white count on admission was 10.4. It did go to a maximum of 17,600 and normalizing to 6,300 prior to discharge. Hemoglobin and hematocrit remained stable at 13.6 and 41.3. Platelet count 144,000. Differential did show a left shift. Coagulation studies showed a slightly elevated PT of 12.6 with INR 1.12 and PT-T 28.9. Chemistries on admission showed sodium 138, potassium 3.8, BUN 18, creatinine 0.88, glucose 80, lactic acid 1.5, calcium 9.4, liver functions within normal limits. Potassium did go up to 5.2 with IV fluids with BUN going to 25, creatinine 1.14. After correction of IV fluid and prior to discharge, potassium had normalized as well as electrolytes with sodium 138, potassium 4.4, BUN 26, creatinine 1.0. Blood sugars ranged between 74 and 208. Urinalysis initially on admission showed specific gravity greater than 1.0, protein greater than 300, glucose 500, ketones 40. Microscopic revealed 5 to 10 WBCs, 0 to 1 RBCs, rare bacteria. Repeat urinalysis on 01/19/17 after IV fluids, glucose was 500, trace of ketones , trace of lysed blood. Otherwise, within normal limits. MICROBIOLOGY: Sputum culture showed heavy growth of budding yeast, no pathogens isolated. She had two sets of blood cultures that remained negative after 5 days. Initial chest x-ray on admission, two-view chest, per radiologic interpretation showed the patient status post left pneumonectomy, opacification of the left thorax and stable, chronic interstitial thickening and scarring of the right lung without any consolidated infiltrates. Please see that report for full details. Repeat x-ray on 01/19/17 after admission, two-view chest, showed stable left pneumonectomy with slightly pronounced interstitial changes in the right lower lobe. She had several other x-rays, the final one being on 01/24/17 on discharge date to Swing Bed and per radiologic interpretation showed small amount of aeration in the left hilum with diffuse opacification white-out of the left pneumothorax, similar appearance overall. Right lungs aerated and stable, linear scar in the right upper lung, stable. Otherwise, stable chest. HOSPITAL COURSE: Ms. Gomez was admitted as noted above for exacerbation of chronic obstructive pulmonary disease and question of pneumonia with having failed outpatient treatment plan. She was started on aggressive bronchial hygiene with antibiotics to include Rocephin and azithromycin, which she finished a course of prior to discharge to Swing Bed. She had DuoNeb treatments , IV fluids and showed good clinical response. Again, prior to discharge, she was felt to be clinically stable, but continued to need reconditioning and physical rehab. PLAN: Ms. Gomez was admitted to Swing Bed on 01/24/17 for strengthening and rehabilitation. Medications were to continue as previous on Acute Care. Diet was diabetic as tolerated. Activities as per physical therapy. Condition at discharge was stable and improved. #[id number] [facility]
== END 2017-01-24 11:50 | disposition swing bed (61) | DRG 190 ==
LOC: MS 11:20
PROVIDERS: ADMIT Nurse Practitioner Family; ATTEND Nurse Practitioner Family
DX: J44.0 Chronic obstructive pulmonary disease with (acute) lower respiratory infection (principal); J18.9 Pneumonia, unspecified organism; J44.1 Chronic obstructive pulmonary disease with (acute) exacerbation; R09.02 Hypoxemia; E86.0 Dehydration; E11.9 Type 2 diabetes mellitus without complications; K21.9 Gastro-esophageal reflux disease without esophagitis; I10 Essential (primary) hypertension; E03.9 Hypothyroidism, unspecified; M32.9 Systemic lupus erythematosus, unspecified; R55 Syncope and collapse; K59.00 Constipation, unspecified; R00.1 Bradycardia, unspecified; N93.8 Other specified abnormal uterine and vaginal bleeding; Z79.84 Long term (current) use of oral hypoglycemic drugs; Z79.4 Long term (current) use of insulin; Z90.2 Acquired absence of lung [part of]; Z85.118 Personal history of other malignant neoplasm of bronchus and lung; J20.9 Acute bronchitis, unspecified

== ENCOUNTER 2017-01-24 12:17 | Inpatient (IN) | payer MEDICARE, BC ==
[2017-01-24] MEDS ORDERED: ALPRAZolam 0.25 MG TAB PO PRN (12:30)
[2017-01-24] MEDS ORDERED: ACETAMINOPHEN 500 MG TAB PO PRN (12:31)
[2017-01-24] MEDS ORDERED: SODIUM PHOS/BIPHOS ENEMA ADULT 133 ML BTTL PR PRN (12:31)
[2017-01-24] MEDS ORDERED: DEXTROSE 50% 25 GM/50 ML SYG IV PRN (12:31)
[2017-01-24] MEDS ORDERED: GLUCAGON INJ 1 MG VIAL SUBCU PRN (12:31)
[2017-01-24] MEDS ORDERED: MAGNESIUM HYDROXIDE 30 ML UD PO PRN (12:31)
[2017-01-24] MEDS ORDERED: BENZONATATE PERLES 100 MG CAP PO PRN (12:35)
[2017-01-24] MEDS ORDERED: ALBUTEROL SULFATE 2.5 MG/3 ML VIAL NEB PRN (12:35)
--- NOTE | 2017-01-24 12:52 | PCM.CORE ---
Physician DVT/VTE - Nurse DVT Assessment & Total Each Risk Factor Represents 3 Points: Age over 75 years, Medical PT with Hx of MT, CHF, Severe infection/sepsis Each Risk Factor is 1 Point: Obesity (BMI >25), Serious Lung disease (pnemonia < 1month, COPD, emphysema,etc) DVT Assessment Score: 8 - 5 or more Very High Risk Treatments: Early Ambulation *, Sequential Compression Device Pharmacological: Enoxaparin 40mg SQ Daily
[2017-01-24] MEDS: ESCITALOPRAM 10 MG TAB PO SCH (13:33)
[2017-01-24] MEDS: IPRATROPIUM/ALBUTEROL 3 ML VIAL NEB SCH ×2 (16:07→20:17)
[2017-01-24] MEDS: INSULIN LISPRO 100 UNITS/ML PEN SUBCU SCH ×2 (17:01→21:11)
[2017-01-24] MEDS: metFORMIN HCL 500 MG TAB PO SCH (17:10)
[2017-01-24] MEDS: METOPROLOL TARTRATE 25 MG TAB PO SCH (17:10)
[2017-01-24] MEDS ORDERED: MELOXICAM 7.5 MG TAB ONE (19:57)
[2017-01-24] MEDS ORDERED: LISINOPRIL 10 MG TAB ONE (19:57)
[2017-01-24] MEDS ORDERED: BIFIDOBACTERIUM INFANTIS 4 MG CAP ONE (19:57)
[2017-01-24] MEDS ORDERED: GABAPENTIN 300 MG CAP ONE (19:57)
--- NOTE | 2017-01-24 19:58 | HP ---
SUPERVISING PHYSICIAN: Palmer Sanchez MD CHIEF COMPLAINT: Weakness, deconditioning. HISTORY OF PRESENT ILLNESS: Ms. Gomez is a 76-year-old, female patient of Dr. Anderson'rg. She started having some respiratory symptoms the week before that included shortness of breath, coughing, fever and chills. She saw Dr. Anderson on 01/17/17 in the clinic at which time she did have a fever of 100.3. Saturation was 87% on room air. Flu swab and strep screen were completed, which were both negative. Lab work was also completed with a CBC and it showed her white count was 7,800, but she had a left shift. Radiographic studies were completed at that time per radiologic interpretation of two view chest indicated she had complete opacification of the left hemithorax which actually is chronic for her. She also had consolidations on the right. Dr. Anderson suggested that the patient be admitted to the hospital given that her saturation was 87% and she was significantly showing to be ill. At that time, the patient refused admission and requested to be treated at home. She was given a Rocephin shot and a prescription for Omnicef and Z-Vivek as well as DuoNeb nebulizer treatments. She was also given a prescription for oxygen. However, she was unable to get the DuoNeb treatments or the oxygen overnight and progressively worsened. She presented back to Dr. Anderson's clinic the morning of 01/18/17 with worsening symptoms and showing a temperature of 100.6 with saturation 81% on room air. Given the past laboratory findings and clinical examination, Dr. Anderson requested that the patient be admitted to the hospital for treatment with more aggressive bronchodilator treatment, oxygen and initiation of antibiotic treatment for concern for developing pneumonia with the patient having failed to respond to outpatient treatment plan. She was started on treatment on 01/18/17 for exacerbation of chronic bronchitis with right lower lobe pneumonia, community acquired. She was started on Rocephin and azithromycin parenterally and showed good improvement. She completed a course of antibiotic therapy of Rocephin and azithromycin and was showing good improvement with regards to her chronic obstructive pulmonary disease and resolution of pneumonia. However, given the lengthy hospitalization , weakness and severe deconditioning, physical therapy evaluation suggested the patient be admitted to Swing Bed for ongoing physical therapy to help with reconditioning and strengthening to ensure the patient was safe once discharged home. The patient is being admitted to Swing Bed, however, it should be noted that the patient's last night at home and the family notified this morning who took the news fairly well and after a long discussion of either discharging home or staying in Swing Bed, the patient opted to stay in Swing Bed as long as she could have a pass to go to attend her 's . She is now being admitted to Swing Bed. PAST MEDICAL HISTORY: 1. Type 2 diabetes mellitus. 2. Gastroesophageal reflux disease. 3. Hypertension. 4. Hypothyroidism. 5. Past pericardial effusions. 6. Lupus. 7. Lung cancer with a lung resection and left pneumonectomy in 2004. 8. History of syncope with a loop monitor in place, followed by Dr. Manuel. 9. Chronic obstructive pulmonary disease. PAST SURGICAL HISTORY: 1. Appendectomy. 2. Cholecystectomy. 3. Hernia repair. 4. Hysterectomy. 5. Lung resection with left pneumonectomy in 2004. 6. Previous pericardial window in 2005. MEDICATIONS: Please refer to electronic medical records and updated list in APR for verified medications. ALLERGIES: NO KNOWN DRUG ALLERGIES. FAMILY HISTORY: Father at age 68 due to lung cancer, diabetes and heart disease. Mother at age 68 due to emphysema. SOCIAL HISTORY: The patient is retired. She has worked as previous public relations analyst and seamstress. She is just recently as of 01/24/17. She lives in [place], [place]. She does have a history of past cigarette smoking and quit in 1991. She has never drank alcohol. REVIEW OF SYSTEMS: CONSTITUTIONAL: Negative for chills, fevers, but has ongoing weakness and fatigue. RESPIRATORY: As noted in history of present illness, ongoing cough recovering from recent pneumonia showing hypoxia on room air requiring oxygen therapy. CARDIOVASCULAR: Denies chest pain or palpitations. She did have a recent syncopal episode which as felt to be related to a vasal response while attempting to have a bowel movement. GASTROINTESTINAL: She had some mild constipation on Acute Care which was resolved with stool softeners, but has not had any diarrhea or abdominal pains. GENITOURINARY: Denies dysuria, hematuria or other urinary symptoms. NEUROLOGIC: She denies ataxia, headaches or other neurologic symptoms other than the previously mentioned syncopal episode. PHYSICAL EXAMINATION: VITAL SIGNS: Temperature 97.9. Pulse 62. Blood pressure 132/76. Respirations 18. Saturation 96% on nasal cannula at 2 liters. Admission weight 93.8 kg. GENERAL: The patient is somewhat anxious and tearful given that her did just pass recently, but she is alert and oriented and visiting with family. She appears to be comfortable and in no acute distress. HEENT: Tympanic membranes clear bilaterally. Oropharynx is pink, moist without any lesions. NECK: Supple, nontender with full range of motion. No jugular venous distention noted. CHEST: Lungs essentially clear, just slightly diminished towards the base on the right, but no breath sounds on the left secondary to previous pneumonectomy. There is no notable wheezing or rhonchi heard today. CARDIOVASCULAR: Regular rate and rhythm without any appreciable murmurs, gallops, or rubs. ABDOMEN: Obese, but soft, nontender. Positive bowel sounds. EXTREMITIES: There is no cyanosis, clubbing or edema. NEUROLOGIC: The patient is alert and oriented times three. LABORATORY: Pending laboratory includes CBC and CMP. RADIOLOGY: Chest x-ray pending. ASSESSMENT: 1. Chronic obstructive pulmonary disease with acute exacerbation with bronchitis, having failed to respond to outpatient treatment plan, requiring hospitalization for the initiation of bronchial hygiene and parenteral antibiotics with the patient having significant deconditioning requiring admission to Swing Bed for ongoing rehab and reconditioning. 2. Right lower lobe pneumonia, community acquired, showing good clinical response to antibiotic therapy having been on Rocephin and azithromycin for a full course of antibiotics with culture results final report showing no growth of bacterial, only growth of yeast. 3. Syncopal episode secondary to constipation and vagal response with the patient having a history of previous syncopal episodes on a loop monitor followed by Dr. Manuel. 4. Hypoxia on admission, showing continuation of need for oxygen and home oxygen therapy. 5. Type 2 diabetes, stable. 6. Gastroesophageal reflux disease. 7. Hypertension, stable. 8. Hypothyroidism, on supplementation. 9. History of lupus. 10. History of left sided lung cancer with a total pneumonectomy in 2004. 11. Moderate constipation resulting in a vagal response on Acute Care, resolved with stool softeners. PLAN: The patient will be admitted to Swing Bed for ongoing therapy and rehabilitation for reconditioning. She will continue on previous medications as on Acute Care. Please see those medications once they are updated in electronic medical record. She will be on DVT prophylaxis per protocol. We will have a dietary and physical therapy consultation. She will be on sliding scale insulin per protocol. We will anticipate her length of stay to be at least 3 to 7 days. Again, she requested that she have a pass in the next day or two to attend her 's . Until she meets her physical therapy goals and is able to be discharged safely, we will continue to monitor and treat appropriate as she progresses through physical therapy. #[id number] [facility]
[2017-01-24] MEDS: MELOXICAM 7.5 MG TAB PO SCH (20:28)
[2017-01-24] MEDS: LISINOPRIL 10 MG TAB PO SCH (20:28)
[2017-01-24] MEDS: BIFIDOBACTERIUM INFANTIS 4 MG CAP PO SCH (20:29)
[2017-01-24] MEDS: GABAPENTIN 300 MG CAP PO SCH (20:29)
[2017-01-24] MEDS: INSULIN DETEMIR 100 UNITS/ML PEN SUBCU SCH (21:10)
[2017-01-24] MEDS: MELATONIN 3 MG TAB PO SCH (22:36)
[2017-01-25] MEDS: PANTOPRAZOLE SODIUM TAB 40 MG PO SCH (06:07)
[2017-01-25] MEDS ORDERED: B COMPLEX 1 EA TAB ONE (07:34)
[2017-01-25] MEDS ORDERED: CALCIUM CARBONATE-VITAMIN D 500 MG TAB ONE (07:34)
[2017-01-25] MEDS ORDERED: MULTIPLE VITAMINS W/ MINERALS 1 EA TAB ONE (07:34)
[2017-01-25] MEDS ORDERED: ENOXAPARIN SODIUM 40 MG/0.4 ML SYG SUBCU ONE (07:35)
[2017-01-25] MEDS ORDERED: hydroCHLOROthiazide 25 MG TAB ONE (07:35)
[2017-01-25] MEDS ORDERED: ASCORBIC ACID 500 MG TAB ONE (07:35)
[2017-01-25] MEDS ORDERED: DOCUSATE SODIUM 100 MG CAP ONE (07:35)
[2017-01-25] MEDS ORDERED: ASPIRIN EC 81 MG TAB PO ONE (07:35)
[2017-01-25] MEDS ORDERED: predniSONE 20 MG TAB ONE (07:35)
[2017-01-25] MEDS: INSULIN LISPRO 100 UNITS/ML PEN SUBCU SCH ×4 (08:33→21:02)
[2017-01-25] MEDS: ENOXAPARIN SODIUM 40 MG/0.4 ML SYG SUBCU SCH (08:33)
[2017-01-25] MEDS: predniSONE 20 MG TAB PO SCH (08:33)
[2017-01-25] MEDS: ESCITALOPRAM 10 MG TAB PO SCH (08:33)
[2017-01-25] MEDS: metFORMIN HCL 500 MG TAB PO SCH ×2 (08:33→16:29)
[2017-01-25] MEDS: B COMPLEX 1 EA TAB PO SCH (08:34)
[2017-01-25] MEDS: DOCUSATE SODIUM 100 MG CAP PO SCH (08:34)
[2017-01-25] MEDS: hydroCHLOROthiazide 25 MG TAB PO SCH (08:34)
[2017-01-25] MEDS: CALCIUM CARBONATE-VITAMIN D 500 MG TAB PO SCH (08:34)
[2017-01-25] MEDS: BIFIDOBACTERIUM INFANTIS 4 MG CAP PO SCH ×2 (08:34→21:02)
[2017-01-25] MEDS: ASPIRIN EC 81 MG TAB PO SCH (08:34)
[2017-01-25] MEDS: ASCORBIC ACID 500 MG TAB PO SCH (08:34)
[2017-01-25] MEDS: POTASSIUM CHLORIDE 10 MEQ TAB PO SCH (08:34)
[2017-01-25] MEDS: METOPROLOL TARTRATE 25 MG TAB PO SCH ×2 (08:34→16:29)
[2017-01-25] MEDS: MULTIPLE VITAMINS W/ MINERALS 1 EA TAB PO SCH (08:34)
[2017-01-25] MEDS: GABAPENTIN 300 MG CAP PO SCH ×2 (08:34→21:02)
[2017-01-25] MEDS: NON-FORMULARY MEDICATION 1 EA MIS (Raloxifene Hcl [Evista] 60 MG) PO SCH (08:35)
[2017-01-25] MEDS: NON-FORMULARY MEDICATION 1 EA MIS (Canagliflozin [Invokana] 300 MG) PO SCH (08:35)
[2017-01-25] MEDS: IPRATROPIUM/ALBUTEROL 3 ML VIAL NEB SCH ×4 (08:45→19:58)
[2017-01-25] MEDS ORDERED: CALCIUM 200 MG PO SCH (09:00)
[2017-01-25] MEDS: DIGOXIN 0.25 MG TAB PO SCH (12:26)
[2017-01-25] MEDS: LISINOPRIL 10 MG TAB PO SCH (21:02)
[2017-01-25] MEDS: MELATONIN 3 MG TAB PO SCH (21:02)
[2017-01-25] MEDS: MELOXICAM 7.5 MG TAB PO SCH (21:02)
[2017-01-25] MEDS: INSULIN DETEMIR 100 UNITS/ML PEN SUBCU SCH (21:03)
[2017-01-26] MEDS: PANTOPRAZOLE SODIUM TAB 40 MG PO SCH (06:28)
[2017-01-26] MEDS: INSULIN LISPRO 100 UNITS/ML PEN SUBCU SCH ×3 (07:00→17:05)
[2017-01-26] MEDS: METOPROLOL TARTRATE 25 MG TAB PO SCH ×2 (07:59→17:11)
[2017-01-26] MEDS: metFORMIN HCL 500 MG TAB PO SCH ×2 (08:01→17:11)
[2017-01-26] MEDS: POTASSIUM CHLORIDE 10 MEQ TAB PO SCH (08:01)
[2017-01-26] MEDS: IPRATROPIUM/ALBUTEROL 3 ML VIAL NEB SCH ×4 (09:08→20:00)
[2017-01-26] MEDS: ENOXAPARIN SODIUM 40 MG/0.4 ML SYG SUBCU SCH (09:44)
[2017-01-26] MEDS: ESCITALOPRAM 10 MG TAB PO SCH (09:45)
[2017-01-26] MEDS: predniSONE 20 MG TAB PO SCH (09:45)
[2017-01-26] MEDS: ASCORBIC ACID 500 MG TAB PO SCH (09:45)
[2017-01-26] MEDS: MULTIPLE VITAMINS W/ MINERALS 1 EA TAB PO SCH (09:45)
[2017-01-26] MEDS: ASPIRIN EC 81 MG TAB PO SCH (09:45)
[2017-01-26] MEDS: GABAPENTIN 300 MG CAP PO SCH ×2 (09:45→21:24)
[2017-01-26] MEDS: B COMPLEX 1 EA TAB PO SCH (09:45)
[2017-01-26] MEDS: CALCIUM CARBONATE-VITAMIN D 500 MG TAB PO SCH (09:45)
[2017-01-26] MEDS: hydroCHLOROthiazide 25 MG TAB PO SCH (09:46)
[2017-01-26] MEDS: BIFIDOBACTERIUM INFANTIS 4 MG CAP PO SCH ×2 (09:46→21:25)
[2017-01-26] MEDS: DOCUSATE SODIUM 100 MG CAP PO SCH (09:46)
[2017-01-26] MEDS: NON-FORMULARY MEDICATION 1 EA MIS (Canagliflozin [Invokana] 300 MG) PO SCH (09:53)
[2017-01-26] MEDS: NON-FORMULARY MEDICATION 1 EA MIS (Raloxifene Hcl [Evista] 60 MG) PO SCH (09:54)
[2017-01-26] MEDS: DIGOXIN 0.25 MG TAB PO SCH (13:09)
[2017-01-26] MEDS: MELOXICAM 7.5 MG TAB PO SCH (21:24)
[2017-01-26] MEDS: LISINOPRIL 10 MG TAB PO SCH (21:24)
[2017-01-26] MEDS: MELATONIN 3 MG TAB PO SCH (21:24)
[2017-01-26] MEDS: INSULIN DETEMIR 100 UNITS/ML PEN SUBCU SCH (21:26)
[2017-01-27] MEDS: INSULIN LISPRO 100 UNITS/ML PEN SUBCU SCH ×5 (00:13→21:46)
[2017-01-27] MEDS: PANTOPRAZOLE SODIUM TAB 40 MG PO SCH (06:04)
[2017-01-27] MEDS: IPRATROPIUM/ALBUTEROL 3 ML VIAL NEB SCH ×3 (07:19→20:21)
[2017-01-27] MEDS: metFORMIN HCL 500 MG TAB PO SCH ×2 (07:49→21:47)
[2017-01-27] MEDS: METOPROLOL TARTRATE 25 MG TAB PO SCH ×2 (07:50→21:47)
[2017-01-27] MEDS: POTASSIUM CHLORIDE 10 MEQ TAB PO SCH (07:51)
[2017-01-27] MEDS: ENOXAPARIN SODIUM 40 MG/0.4 ML SYG SUBCU SCH (08:14)
[2017-01-27] MEDS: DOCUSATE SODIUM 100 MG CAP PO SCH (08:14)
[2017-01-27] MEDS: CALCIUM CARBONATE-VITAMIN D 500 MG TAB PO SCH (08:15)
[2017-01-27] MEDS: ASPIRIN EC 81 MG TAB PO SCH (08:15)
[2017-01-27] MEDS: GABAPENTIN 300 MG CAP PO SCH ×2 (08:15→20:50)
[2017-01-27] MEDS: ESCITALOPRAM 10 MG TAB PO SCH (08:15)
[2017-01-27] MEDS: MULTIPLE VITAMINS W/ MINERALS 1 EA TAB PO SCH (08:15)
[2017-01-27] MEDS: B COMPLEX 1 EA TAB PO SCH (08:15)
[2017-01-27] MEDS: BIFIDOBACTERIUM INFANTIS 4 MG CAP PO SCH ×2 (08:15→20:50)
[2017-01-27] MEDS: NON-FORMULARY MEDICATION 1 EA MIS (Canagliflozin [Invokana] 300 MG) PO SCH (08:24)
[2017-01-27] MEDS: NON-FORMULARY MEDICATION 1 EA MIS (Raloxifene Hcl [Evista] 60 MG) PO SCH (08:25)
[2017-01-27] MEDS: ASCORBIC ACID 500 MG TAB PO SCH (08:26)
[2017-01-27] MEDS: predniSONE 10 MG TAB PO SCH (08:26)
[2017-01-27] MEDS: hydroCHLOROthiazide 25 MG TAB PO SCH (08:27)
[2017-01-27] MEDS: DIGOXIN 0.25 MG TAB PO SCH (11:57)
[2017-01-27] MEDS: INSULIN DETEMIR 100 UNITS/ML PEN SUBCU SCH (20:50)
[2017-01-27] MEDS: LISINOPRIL 10 MG TAB PO SCH (20:50)
[2017-01-27] MEDS: MELATONIN 3 MG TAB PO SCH (20:50)
[2017-01-27] MEDS: MELOXICAM 7.5 MG TAB PO SCH (20:50)
[2017-01-28] MEDS: PANTOPRAZOLE SODIUM TAB 40 MG PO SCH (06:06)
[2017-01-28] MEDS: INSULIN LISPRO 100 UNITS/ML PEN SUBCU SCH ×4 (07:47→21:19)
[2017-01-28] MEDS: METOPROLOL TARTRATE 25 MG TAB PO SCH ×2 (08:18→17:47)
[2017-01-28] MEDS: POTASSIUM CHLORIDE 10 MEQ TAB PO SCH (08:20)
[2017-01-28] MEDS: ASPIRIN EC 81 MG TAB PO SCH (08:20)
[2017-01-28] MEDS: hydroCHLOROthiazide 25 MG TAB PO SCH (08:20)
[2017-01-28] MEDS: metFORMIN HCL 500 MG TAB PO SCH ×2 (08:20→17:47)
[2017-01-28] MEDS: MULTIPLE VITAMINS W/ MINERALS 1 EA TAB PO SCH (08:21)
[2017-01-28] MEDS: GABAPENTIN 300 MG CAP PO SCH ×2 (08:21→21:18)
[2017-01-28] MEDS: CALCIUM CARBONATE-VITAMIN D 500 MG TAB PO SCH (08:21)
[2017-01-28] MEDS: DOCUSATE SODIUM 100 MG CAP PO SCH (08:22)
[2017-01-28] MEDS: B COMPLEX 1 EA TAB PO SCH (08:22)
[2017-01-28] MEDS: ASCORBIC ACID 500 MG TAB PO SCH (08:22)
[2017-01-28] MEDS: predniSONE 10 MG TAB PO SCH (08:23)
[2017-01-28] MEDS: ENOXAPARIN SODIUM 40 MG/0.4 ML SYG SUBCU SCH (08:25)
[2017-01-28] MEDS: BIFIDOBACTERIUM INFANTIS 4 MG CAP PO SCH ×2 (08:28→21:19)
[2017-01-28] MEDS: ESCITALOPRAM 10 MG TAB PO SCH (08:28)
[2017-01-28] MEDS: IPRATROPIUM/ALBUTEROL 3 ML VIAL NEB SCH ×4 (08:30→19:47)
[2017-01-28] MEDS: NON-FORMULARY MEDICATION 1 EA MIS (Raloxifene Hcl [Evista] 60 MG) PO SCH (10:12)
[2017-01-28] MEDS: NON-FORMULARY MEDICATION 1 EA MIS (Canagliflozin [Invokana] 300 MG) PO SCH (10:12)
[2017-01-28] MEDS: DIGOXIN 0.25 MG TAB PO SCH (13:34)
[2017-01-28] MEDS: MELATONIN 3 MG TAB PO SCH (21:18)
[2017-01-28] MEDS: LISINOPRIL 10 MG TAB PO SCH (21:18)
[2017-01-28] MEDS: MELOXICAM 7.5 MG TAB PO SCH (21:19)
[2017-01-28] MEDS: INSULIN DETEMIR 100 UNITS/ML PEN SUBCU SCH (21:22)
[2017-01-29] MEDS: PANTOPRAZOLE SODIUM TAB 40 MG PO SCH (06:50)
[2017-01-29] MEDS: INSULIN LISPRO 100 UNITS/ML PEN SUBCU SCH ×4 (07:17→21:28)
[2017-01-29] MEDS: METOPROLOL TARTRATE 25 MG TAB PO SCH ×2 (07:56→17:09)
[2017-01-29] MEDS: metFORMIN HCL 500 MG TAB PO SCH ×2 (07:57→17:09)
[2017-01-29] MEDS: POTASSIUM CHLORIDE 10 MEQ TAB PO SCH (07:58)
[2017-01-29] MEDS: CALCIUM CARBONATE-VITAMIN D 500 MG TAB PO SCH (08:10)
[2017-01-29] MEDS: ASCORBIC ACID 500 MG TAB PO SCH (08:10)
[2017-01-29] MEDS: hydroCHLOROthiazide 25 MG TAB PO SCH (08:10)
[2017-01-29] MEDS: ASPIRIN EC 81 MG TAB PO SCH (08:10)
[2017-01-29] MEDS: GABAPENTIN 300 MG CAP PO SCH ×2 (08:10→20:33)
[2017-01-29] MEDS: DOCUSATE SODIUM 100 MG CAP PO SCH (08:10)
[2017-01-29] MEDS: BIFIDOBACTERIUM INFANTIS 4 MG CAP PO SCH ×2 (08:10→20:33)
[2017-01-29] MEDS: B COMPLEX 1 EA TAB PO SCH (08:10)
[2017-01-29] MEDS: MULTIPLE VITAMINS W/ MINERALS 1 EA TAB PO SCH (08:10)
[2017-01-29] MEDS: ESCITALOPRAM 10 MG TAB PO SCH (08:11)
[2017-01-29] MEDS: predniSONE 10 MG TAB PO SCH (08:11)
[2017-01-29] MEDS: ENOXAPARIN SODIUM 40 MG/0.4 ML SYG SUBCU SCH (08:12)
[2017-01-29] MEDS: IPRATROPIUM/ALBUTEROL 3 ML VIAL NEB SCH ×4 (08:41→20:00)
[2017-01-29] MEDS: NON-FORMULARY MEDICATION 1 EA MIS (Raloxifene Hcl [Evista] 60 MG) PO SCH (08:46)
[2017-01-29] MEDS: NON-FORMULARY MEDICATION 1 EA MIS (Canagliflozin [Invokana] 300 MG) PO SCH (08:46)
[2017-01-29] MEDS: DIGOXIN 0.25 MG TAB PO SCH (15:02)
[2017-01-29] MEDS: MELATONIN 3 MG TAB PO SCH (20:32)
[2017-01-29] MEDS: LISINOPRIL 10 MG TAB PO SCH (20:33)
[2017-01-29] MEDS: MELOXICAM 7.5 MG TAB PO SCH (20:33)
[2017-01-29] MEDS: INSULIN DETEMIR 100 UNITS/ML PEN SUBCU SCH (21:29)
[2017-01-30] MEDS: PANTOPRAZOLE SODIUM TAB 40 MG PO SCH (06:18)
[2017-01-30] MEDS: INSULIN LISPRO 100 UNITS/ML PEN SUBCU SCH ×4 (07:15→20:55)
[2017-01-30] MEDS: POTASSIUM CHLORIDE 10 MEQ TAB PO SCH (07:55)
[2017-01-30] MEDS: metFORMIN HCL 500 MG TAB PO SCH ×2 (07:55→17:56)
[2017-01-30] MEDS: METOPROLOL TARTRATE 25 MG TAB PO SCH ×2 (07:55→17:56)
[2017-01-30] MEDS: IPRATROPIUM/ALBUTEROL 3 ML VIAL NEB SCH ×4 (08:05→20:06)
[2017-01-30] MEDS: ESCITALOPRAM 10 MG TAB PO SCH (09:01)
[2017-01-30] MEDS: ASCORBIC ACID 500 MG TAB PO SCH (09:01)
[2017-01-30] MEDS: ASPIRIN EC 81 MG TAB PO SCH (09:01)
[2017-01-30] MEDS: predniSONE 20 MG TAB PO SCH (09:01)
[2017-01-30] MEDS: MULTIPLE VITAMINS W/ MINERALS 1 EA TAB PO SCH (09:01)
[2017-01-30] MEDS: GABAPENTIN 300 MG CAP PO SCH ×2 (09:01→20:56)
[2017-01-30] MEDS: CALCIUM CARBONATE-VITAMIN D 500 MG TAB PO SCH (09:01)
[2017-01-30] MEDS: NON-FORMULARY MEDICATION 1 EA MIS (Canagliflozin [Invokana] 300 MG) PO SCH (09:02)
[2017-01-30] MEDS: hydroCHLOROthiazide 25 MG TAB PO SCH (09:02)
[2017-01-30] MEDS: DOCUSATE SODIUM 100 MG CAP PO SCH (09:02)
[2017-01-30] MEDS: ENOXAPARIN SODIUM 40 MG/0.4 ML SYG SUBCU SCH (09:02)
[2017-01-30] MEDS: B COMPLEX 1 EA TAB PO SCH (09:02)
[2017-01-30] MEDS: NON-FORMULARY MEDICATION 1 EA MIS (Raloxifene Hcl [Evista] 60 MG) PO SCH (09:02)
[2017-01-30] MEDS: BIFIDOBACTERIUM INFANTIS 4 MG CAP PO SCH ×2 (09:02→20:55)
[2017-01-30] MEDS: DIGOXIN 0.25 MG TAB PO SCH (12:49)
[2017-01-30] MEDS ORDERED: GABAPENTIN 100 MG CAP ONE (20:32)
[2017-01-30] MEDS: MELATONIN 3 MG TAB PO SCH (20:55)
[2017-01-30] MEDS: MELOXICAM 7.5 MG TAB PO SCH (20:56)
[2017-01-30] MEDS: LISINOPRIL 10 MG TAB PO SCH (20:56)
[2017-01-30] MEDS: INSULIN DETEMIR 100 UNITS/ML PEN SUBCU SCH (20:57)
[2017-01-31] MEDS: PANTOPRAZOLE SODIUM TAB 40 MG PO SCH (06:04)
[2017-01-31] MEDS: INSULIN LISPRO 100 UNITS/ML PEN SUBCU SCH ×4 (07:30→22:50)
[2017-01-31] MEDS: metFORMIN HCL 500 MG TAB PO SCH ×2 (08:26→17:38)
[2017-01-31] MEDS: METOPROLOL TARTRATE 25 MG TAB PO SCH ×2 (08:26→17:37)
[2017-01-31] MEDS: DOCUSATE SODIUM 100 MG CAP PO SCH (08:27)
[2017-01-31] MEDS: POTASSIUM CHLORIDE 10 MEQ TAB PO SCH (08:27)
[2017-01-31] MEDS: CALCIUM CARBONATE-VITAMIN D 500 MG TAB PO SCH (08:27)
[2017-01-31] MEDS: predniSONE 20 MG TAB PO SCH (08:27)
[2017-01-31] MEDS: ESCITALOPRAM 10 MG TAB PO SCH (08:27)
[2017-01-31] MEDS: MULTIPLE VITAMINS W/ MINERALS 1 EA TAB PO SCH (08:27)
[2017-01-31] MEDS: ASPIRIN EC 81 MG TAB PO SCH (08:27)
[2017-01-31] MEDS: GABAPENTIN 300 MG CAP PO SCH ×2 (08:27→22:53)
[2017-01-31] MEDS: BIFIDOBACTERIUM INFANTIS 4 MG CAP PO SCH ×2 (08:27→22:53)
[2017-01-31] MEDS: ASCORBIC ACID 500 MG TAB PO SCH (08:27)
[2017-01-31] MEDS: B COMPLEX 1 EA TAB PO SCH (08:27)
[2017-01-31] MEDS: hydroCHLOROthiazide 25 MG TAB PO SCH (08:27)
[2017-01-31] MEDS: ENOXAPARIN SODIUM 40 MG/0.4 ML SYG SUBCU SCH (08:28)
[2017-01-31] MEDS: IPRATROPIUM/ALBUTEROL 3 ML VIAL NEB SCH ×4 (08:49→19:50)
[2017-01-31] MEDS: NON-FORMULARY MEDICATION 1 EA MIS (Canagliflozin [Invokana] 300 MG) PO SCH (09:25)
[2017-01-31] MEDS: NON-FORMULARY MEDICATION 1 EA MIS (Raloxifene Hcl [Evista] 60 MG) PO SCH (09:25)
[2017-01-31] MEDS: DIGOXIN 0.25 MG TAB PO SCH (12:45)
--- NOTE | 2017-01-31 19:09 | PN ---
DATE: 01/31/17 SUBJECTIVE: The patient is sitting up in the bed and still complains of some cough with some yellowish-green sputum occasionally noted. She is able to ambulate a little bit better and this will need to continue until she is able to safely return home. Appetite is fairly good. OBJECTIVE: LUNGS: On the right appear to have fairly clean breath sounds with some extension over towards the left where the left pneumonectomy has been noted. HEART: Tones are good. She is afebrile, blood pressure 134/78, pulse oximetry 96% on 1 liter. Fasting glucose this morning was 61. No cultures recently. ASSESSMENT: 1. Chronic obstructive pulmonary disease with acute exacerbation with bronchitis, having failed to respond to outpatient treatment plan, requiring hospitalization for the initiation of bronchial hygiene and parenteral antibiotics with the patient having significant deconditioning requiring admission to Swing Bed for ongoing rehab and reconditioning. 2. Right lower lobe pneumonia, community acquired, showing good clinical response to antibiotic therapy having been on Rocephin and azithromycin for a full course of antibiotics with culture results final report showing no growth of bacterial, only growth of yeast. 3. Syncopal episode secondary to constipation and vagal response with the patient having a history of previous syncopal episodes on a loop monitor followed by Dr. Manuel. 4. Hypoxia on admission, showing continuation of need for oxygen and home oxygen therapy. 5. Type 2 diabetes, stable. 6. Gastroesophageal reflux disease. 7. Hypertension, stable. 8. Hypothyroidism, on supplementation. 9. History of lupus. 10. History of left sided lung cancer with a total pneumonectomy in 2004. 11. Moderate constipation resulting in a vagal response on Acute Care, resolved with stool softeners. PLAN: The patient will continue with her rehabilitation as strengthening and conditioning continue to the point where she will safely be able to return home. At this time, it is looking like she may be able to return home by Tuesday morning. She has a hair appointment at about 11:00 in the morning at which time she may be able to go there instead of having to go clear home and then return. In the meantime, will discuss with physical therapy and continue her ongoing rehab program. #[id number] [facility]
[2017-01-31] MEDS: INSULIN DETEMIR 100 UNITS/ML PEN SUBCU SCH (22:50)
[2017-01-31] MEDS: MELOXICAM 7.5 MG TAB PO SCH (22:53)
[2017-01-31] MEDS: LISINOPRIL 10 MG TAB PO SCH (22:53)
[2017-01-31] MEDS: MELATONIN 3 MG TAB PO SCH (22:53)
[2017-02-01] MEDS: PANTOPRAZOLE SODIUM TAB 40 MG PO SCH (06:25)
[2017-02-01] MEDS: IPRATROPIUM/ALBUTEROL 3 ML VIAL NEB SCH ×5 (07:15→20:16)
[2017-02-01] MEDS: INSULIN LISPRO 100 UNITS/ML PEN SUBCU SCH ×4 (07:23→21:30)
[2017-02-01] MEDS: metFORMIN HCL 500 MG TAB PO SCH ×2 (08:35→17:44)
[2017-02-01] MEDS: METOPROLOL TARTRATE 25 MG TAB PO SCH ×2 (08:36→17:44)
[2017-02-01] MEDS: POTASSIUM CHLORIDE 10 MEQ TAB PO SCH (08:36)
[2017-02-01] MEDS: hydroCHLOROthiazide 25 MG TAB PO SCH (09:09)
[2017-02-01] MEDS: DOCUSATE SODIUM 100 MG CAP PO SCH (09:10)
[2017-02-01] MEDS: ASCORBIC ACID 500 MG TAB PO SCH (09:10)
[2017-02-01] MEDS: CALCIUM CARBONATE-VITAMIN D 500 MG TAB PO SCH (09:11)
[2017-02-01] MEDS: ASPIRIN EC 81 MG TAB PO SCH (09:11)
[2017-02-01] MEDS: MULTIPLE VITAMINS W/ MINERALS 1 EA TAB PO SCH (09:11)
[2017-02-01] MEDS: ESCITALOPRAM 10 MG TAB PO SCH (09:11)
[2017-02-01] MEDS: BIFIDOBACTERIUM INFANTIS 4 MG CAP PO SCH ×2 (09:11→21:27)
[2017-02-01] MEDS: B COMPLEX 1 EA TAB PO SCH (09:12)
[2017-02-01] MEDS: GABAPENTIN 300 MG CAP PO SCH ×2 (09:12→21:27)
[2017-02-01] MEDS: ENOXAPARIN SODIUM 40 MG/0.4 ML SYG SUBCU SCH (09:12)
[2017-02-01] MEDS: predniSONE 20 MG TAB PO SCH (09:13)
[2017-02-01] MEDS: NON-FORMULARY MEDICATION 1 EA MIS (Canagliflozin [Invokana] 300 MG) PO SCH (09:13)
[2017-02-01] MEDS: NON-FORMULARY MEDICATION 1 EA MIS (Raloxifene Hcl [Evista] 60 MG) PO SCH (09:13)
[2017-02-01] MEDS: DIGOXIN 0.25 MG TAB PO SCH (12:35)
--- NOTE | 2017-02-01 20:55 | PN ---
DATE: 02/01/17 SUBJECTIVE: The patient's response to rehabilitation has shown further progress. If at all possible, the patient is wishing to be able to be discharged in the upper and bottom lacer hand so that she will be able to leave in the later morning to make some appointments. Her condition has shown some steady improvement. PLAN: She is going to need some followup with Dr. Anderson at the clinic after discharge as an outpatient to continue to followup on the COPD and the right lower lobe pneumonia. #[id number] [facility]
[2017-02-01] MEDS: LISINOPRIL 10 MG TAB PO SCH (21:27)
[2017-02-01] MEDS: INSULIN DETEMIR 100 UNITS/ML PEN SUBCU SCH (21:27)
[2017-02-01] MEDS: MELOXICAM 7.5 MG TAB PO SCH (21:27)
[2017-02-01] MEDS: MELATONIN 3 MG TAB PO SCH (21:27)
[2017-02-02 03:27] VITALS: O2SAT 96
[2017-02-02] MEDS: PANTOPRAZOLE SODIUM TAB 40 MG PO SCH (06:49)
[2017-02-02] MEDS: IPRATROPIUM/ALBUTEROL 3 ML VIAL NEB SCH (08:12)
[2017-02-02] MEDS: INSULIN LISPRO 100 UNITS/ML PEN SUBCU SCH (08:33)
[2017-02-02] MEDS ORDERED: predniSONE 10 MG TAB PO SCH (09:00)
[2017-02-02] MEDS: CALCIUM CARBONATE-VITAMIN D 500 MG TAB PO SCH (09:10)
[2017-02-02] MEDS: hydroCHLOROthiazide 25 MG TAB PO SCH (09:10)
[2017-02-02] MEDS: MULTIPLE VITAMINS W/ MINERALS 1 EA TAB PO SCH (09:10)
[2017-02-02] MEDS: METOPROLOL TARTRATE 25 MG TAB PO SCH (09:10)
[2017-02-02] MEDS: BIFIDOBACTERIUM INFANTIS 4 MG CAP PO SCH (09:10)
[2017-02-02] MEDS: ESCITALOPRAM 10 MG TAB PO SCH (09:11)
[2017-02-02] MEDS: DOCUSATE SODIUM 100 MG CAP PO SCH (09:11)
[2017-02-02] MEDS: metFORMIN HCL 500 MG TAB PO SCH (09:11)
[2017-02-02] MEDS: ASCORBIC ACID 500 MG TAB PO SCH (09:12)
[2017-02-02] MEDS: NON-FORMULARY MEDICATION 1 EA MIS (Canagliflozin [Invokana] 300 MG) PO SCH (09:12)
[2017-02-02] MEDS: POTASSIUM CHLORIDE 10 MEQ TAB PO SCH (09:12)
[2017-02-02] MEDS: ENOXAPARIN SODIUM 40 MG/0.4 ML SYG SUBCU SCH (09:12)
[2017-02-02] MEDS: ASPIRIN EC 81 MG TAB PO SCH (09:12)
[2017-02-02] MEDS: NON-FORMULARY MEDICATION 1 EA MIS (Raloxifene Hcl [Evista] 60 MG) PO SCH (09:13)
[2017-02-02] MEDS: B COMPLEX 1 EA TAB PO SCH (10:22)
[2017-02-02] MEDS: GABAPENTIN 300 MG CAP PO SCH (10:22)
[2017-02-02 11:33] VITALS: BP 147/84; TEMP 98.4
--- NOTE | 2017-02-03 09:35 | DS ---
SUPERVISING PHYSICIAN: Raj Fuentes MD DISCHARGE DIAGNOSIS: 1. Chronic obstructive pulmonary disease with acute exacerbation with bronchitis, having previously failed to respond to outpatient treatment plan, requiring hospitalization for the initiation of bronchial hygiene and parenteral antibiotics with the patient having significant deconditioning requiring admission to Swing Bed for ongoing rehab and reconditioning. 2. Right lower lobe pneumonia, community acquired, showing good clinical response to antibiotic therapy having been on Rocephin and azithromycin for a full course of antibiotics with culture results final report showing no growth of bacteria , only growth of yeast. 3. Syncopal episode secondary to constipation and vagal response with the patient having a history of previous syncopal episodes on a loop monitor followed by Dr. Manuel. 4. Hypoxia on admission to Acute Care, showing continuation of need for oxygen, but no need of oxygen upon discharge. 5. Type 2 diabetes, stable. 6. Gastroesophageal reflux disease. 7. Hypertension, stable. 8. Hypothyroidism, on supplementation. 9. History of lupus. 10. History of left sided lung cancer with a total pneumonectomy in 2004. 11. Moderate constipation resulting in a vagal response on Acute Care, resolved with stool softeners administered. REASON FOR HOSPITALIZATION: Ms. Gomez is a 76-year-old, female patient of Dr. Anderson's. She initially started having some respiratory symptoms the week before that included shortness of breath, coughing, fever and chills. She saw Dr. Anderson on 01/17/17 in the clinic at which time she did have a fever of 100.3. Saturation was 87% on room air. Flu swab and strep screen were completed, which were both negative. Initial lab work was also completed in the clinic showed her white count was 7,800, but she had a left shift. Radiographic studies were completed at that time per radiologic interpretation of two view chest indicated she had complete opacification of the left hemithorax which actually is chronic for her. She also had consolidations on the right. Dr. Anderson suggested that the patient be admitted to the hospital given that her saturation was 87% and she was significantly showing to be ill. At that time, the patient refused admission and requested to be treated at home. She was given a Rocephin shot and a prescription for Omnicef and Z-Vivek as well as DuoNeb nebulizer treatments. She was also given a prescription for oxygen at home. However, she was unable to get the DuoNeb treatments or the oxygen overnight and progressively worsened. She presented back to Dr. Anderson's clinic the morning of 01/18/17 with worsening symptoms and showing a temperature of 100.6 with saturation 81% on room air. Given the past laboratory findings and clinical examination, Dr. Anderson requested that the patient be admitted to the hospital for treatment with more aggressive bronchodilator treatment, oxygen and initiation of antibiotic treatment for concern for developing pneumonia with the patient having failed to respond to outpatient treatment plan. She was started on treatment on 01/18/17 in Acute Care for exacerbation of chronic bronchitis with right lower lobe pneumonia, probably community acquired. She was started on Rocephin and azithromycin parenterally and showed good improvement. She completed a course of antibiotic therapy of Rocephin and azithromycin and was showing good improvement with regards to her chronic obstructive pulmonary disease and resolution of pneumonia. However, given the lengthy hospitalization, weakness and severe deconditioning, physical therapy evaluation suggested the patient be admitted to Swing Bed for ongoing physical therapy to help with reconditioning and strengthening to ensure the patient was safe once discharged home. The patient is being admitted to Swing Bed on 01/24/17. It should be noted that the patient 's at home the same day she was admitted to Swing Bed. A discussion was held between the patient and family members and after a length discussion, offered to allow the patient be discharged home versus going into Swing Bed. The patient opted to stay Swing Bed as long as she could have a pass to go to attend her 's . She was admitted in stable condition. LABORATORY: Laboratory studies on Swing Bed were only blood sugars which remained 82 to 257. . RADIOLOGY: There are no radiographic studies completed on Swing Bed admission. HOSPITAL COURSE: The patient was admitted to Swing Bed as noted in reason for hospitalization as noted above. She was able to participate with physical therapy and made good clinical improvement and was felt strong enough on date of discharge to be continued on outpatient therapy. PLAN: Ms. Gomez was discharged on 02/02/17 from Swing Bed to continue with physical therapy in the outpatient setting with home health through [facility] as well as to have close clinical followup with Dr. Anderson. She was told to return to the hospital or call Dr. Anderson should she have any concerning symptoms. At discharge, new medications added include Jardiance 10 mg daily and Lexapro 10 mg daily. All other medications as previous to hospitalization were continued. DIET AT DISCHARGE: Diabetic diet as tolerated. ACTIVITY: As tolerated per physical therapy instructions. CONDITION AT DISCHARGE: Stable and improved. #[id number] [facility]
== END 2017-02-02 10:55 | disposition home health service (06) | DRG 948 ==
LOC: MS 12:17
PROVIDERS: ADMIT Nurse Practitioner Family; ATTEND Nurse Practitioner Family
DX: R53.1 Weakness (principal); J44.9 Chronic obstructive pulmonary disease, unspecified; E11.9 Type 2 diabetes mellitus without complications; K21.9 Gastro-esophageal reflux disease without esophagitis; I11.0 Hypertensive heart disease with heart failure; E03.9 Hypothyroidism, unspecified; K59.00 Constipation, unspecified; M32.9 Systemic lupus erythematosus, unspecified; Z85.118 Personal history of other malignant neoplasm of bronchus and lung; Z63.4 Disappearance and death of family member; Z90.2 Acquired absence of lung [part of]; Z79.1 Long term (current) use of non-steroidal anti-inflammatories (NSAID); Z79.4 Long term (current) use of insulin; Z79.82 Long term (current) use of aspirin; Z79.84 Long term (current) use of oral hypoglycemic drugs

== ENCOUNTER → 2017-02-25 | Outpatient (CLI) | payer BC, MEDICARE | END | disposition home or self-care (01) | LOC: BFHH 14:44 | PROVIDERS: ATTEND Family Medicine | DX: R30.0 Dysuria (principal) ==

== ENCOUNTER 2017-03-13 15:46 | Observation (INO) | payer MEDICARE, BC ==
--- NOTE | 2017-03-13 15:47 | HP ---
SUPERVISING PHYSICIAN: Raj Fuentes MD CHIEF COMPLAINT: Hypoglycemia with syncopal episode. HISTORY OF PRESENT ILLNESS: Ms. Gomez is a 77-year-old, female patient of Dr. Barrera that was seen in the Emergency Room today at [facility] after she had slid out of bed earlier in the morning and had struck her head and nose on the bedrail. She is unsure whether she actually passed out, but it was noted that her blood sugar was low reading in the 60s according to her daughter. Her daughter then went to work that morning and called to check on her and noted that on the phone she sounded like she was slurring her speech and was not making any sense, at which point she went home, called 911 and EMS checked and her blood sugar was in the 40s. She came to the Emergency Room and was treated for hypoglycemia. She does have a history of syncopal episodes in the past and is a type 2 diabetic on both insulin and oral therapy. She takes Lantus at night, 43 units, and according to her family, she has not been eating her normal diet during the day or taking any snacks at night, but continues to take the same dose of Lantus and has been waking up in the mornings with some low blood sugars. The Emergency Room physician, Dr. Junior Mckeon at [facility], requested the patient be transferred to [place] for observation due to the fact that she is scheduled to have a needle biopsy in the morning apparently. The patient requested to be transferred. The patient has been recently diagnosed with an intrapelvic mass and has been attempting to get the needle biopsy completed and requested that she be transferred here in efforts that she could be discharged early enough to get the biopsy completed in the morning. Transfer was arranged and the patient was transferred to the Medical/ Surgical Floor at [facility] for observation. She was placed in observation in stable condition. PAST MEDICAL HISTORY: 1. Type 2 diabetes mellitus on oral and insulin therapy. 2. Gastroesophageal reflux disease. 3. Hypothyroidism. 4. Pericardial effusion. 5. Lupus. 6. Lung cancer with lung resection and left pneumonectomy in 2004. 7. History of multiple syncopal episodes in the past year, followed by Dr. Manuel. 8. Chronic obstructive pulmonary disease. PAST SURGICAL HISTORY: 1. Appendectomy. 2. Cholecystectomy. 3. Hernia repair. 4. Hysterectomy. 5. Lung resection and left pneumonectomy in 2004. 6. Previous pericardial window in 2005. MEDICATIONS: Listed on admission: 1. Evista 60 mg daily. 2. Potassium chloride 10 mEq daily. 3. Centrum vitamin with minerals 1 daily. 4. Lopressor 12.5 mg twice daily. 5. Metformin 100 mg twice daily. 6. Meloxicam 15 mg at bedtime. 7. Melatonin 6 mg at bedtime. 8. Lisinopril 20 mg at bedtime. 9. DuoNeb treatments as needed q.i.d. 10. Lasix 40 mg 1 each morning and an extra one in the afternoon if she needs it for edema. 11. Lantus 43 units daily. 12. Gabapentin 300 mg 2 tablets t.i.d. as needed p.r.n. 13. Digoxin 250 mcg daily. 14. Aspirin 325 mg daily. 15. Calcium 600 mg 1 b.i.d. 16. Vitamin B6, B12 and folate, calcium supplement 1 daily. 17. Vitamin C 500 mg 1 daily. 18. Vitamin E 400 iu capsules 1 b.i.d. Please refer to an updated and verified list once the patient's medications are updated as these medications are just listed in past medical records and the patient was unsure of exactly she takes. ALLERGIES: NO KNOWN DRUG ALLERGIES. FAMILY HISTORY: Father is at age 68 due to lung cancer, diabetes, heart disease. Mother at age 68 due to emphysema. SOCIAL HISTORY: The patient is retired. She has worked previously as a packaging engineer and seamstress. She is just recently as of 01/24/17. She does live in [place], [place]. She has a history of past cigarette smoking and quit in 1991 and has never drank alcohol. REVIEW OF SYSTEMS: CONSTITUTIONAL: Denies any fevers, chills, but has some generalized weakness at times and easily fatigues. RESPIRATORY: No reported cough, wheezing, shortness of breath. CARDIOVASCULAR: Denies chest pain or palpitations. She does have a past history of syncopal episodes, which have been attributed previously to vasal response during bowel movements with the patient noting she is unsure if she actually passed out on this admission. GASTROINTESTINAL: Denies constipation, diarrhea, abdominal pain, nausea or vomiting. GENITOURINARY: Denies dysuria, hematuria, or other urinary symptoms. NEUROLOGIC: Denies headaches, ataxia or other neurological symptoms other than previously mentioned near syncopal episode related to hypoglycemia. PHYSICAL EXAMINATION: VITAL SIGNS: Temperature 99.0. Pulse 76. Blood pressure 160/74. Respiratory rate 18. Saturation 94% on room air. Weight 85.6 kg, which is down from 93.8 kg on last admission on 01/24/17. GENERAL: On admission to the Medical/Surgical Floor, the patient appears to be pleasant, well-nourished, well-hydrated, in no acute distress. She is alert and oriented. HEENT: Tympanic membranes clear bilaterally. Oropharynx is pink, moist without any lesions. NECK: Supple, nontender with full range of motion. No jugular venous distention noted. CHEST: Lungs clear to auscultation bilaterally without any rhonchi, wheezes, or rales. Breath sounds on the left were absent secondary to her previous pneumonectomy. CARDIOVASCULAR: Regular rate and rhythm without any appreciable murmurs, gallops, or rubs. ABDOMEN: Obese, but soft, nontender. Positive bowel sounds. EXTREMITIES: There is no cyanosis, clubbing or edema. NEUROLOGIC: The patient is alert and oriented times three. Cranial nerves II- XII are grossly intact. Facial features are symmetrical. Extraocular movements are within normal limits. There is no nystagmus noted. LABORATORY: CBC on admission showed white count 6,200 with hemoglobin 11.7, hematocrit 35.3, platelet count 134,000, differential within normal limits. Coagulation studies showed normal PT, PT-T. Chemistries showed mild hypokalemia of 3.5 with sodium 138, BUN 26, creatinine 1.15, glucose 75, calcium 9.5, magnesium low at 1.3, TSH normal at 3.66. RADIOLOGY: CT of the head and face was performed at [facility] prior to admission and per radiologic interpretation, there was no evidence of fractures on the CT of the face. There was note of some sinus disease. CT of the head without contrast showed no acute intracranial processes noted. There were chronic changes of the brain in the right side with sphenoid sinus disease per radiologic interpretation. ASSESSMENT: 1. Near syncopal episode with a same level fall from a seated position with a closed head injury, mild contusion to the forehead attributed to a hypoglycemic event with the patient being on Lantus 43 units at night as well as metformin and Jardiance. 2. Type 2 diabetes mellitus with both oral and insulin therapy with possible hypoglycemic episodes contributed to by the patient's noncompliance with nutritional plan. 3. Anorexia and weight loss within the last month, felt to be secondary to possible intraabdominal/pelvic mass. 4. History of recent diagnosis of intrapelvic mass, suspicious for neoplasm, awaiting a needle biopsy on 03/14/17 at [facility]. 5. Chronic obstructive pulmonary disease with no signs of exacerbation. 6. Recent history of right lower lobe pneumonia being treated on 02/03/17. 7. Gastroesophageal reflux disease. 8. Hypertension, stable. 9. Hypothyroidism on supplementation with normal TSH. 10. History of lupus. 11. History of left sided lung cancer with total pneumonectomy in 2004. 12. Mild renal insufficiency, possibly secondary to prerenal azotemia due to dehydration and poor nutritional status. PLAN: The patient was transferred here from [facility] Emergency Department. She will be placed in observation with close neurological monitoring and on telemetry as well. She is scheduled to have a needle biopsy tomorrow by Dr. Croft at 9 o'clock. The plan would be to discharge her before that so that she could successfully attend this scheduled appointment. Her medications need to be closely reviewed with more likely decreasing of her Lantus at discharge with close home monitoring of her blood sugars and encouragement of eating a snack at night and changing her Lantus dose from bedtime to AM to prevent any unforeseen hypoglycemic events. She will need close clinical followup with Dr. Anderson at discharge. We will hold off on Lovenox as she is scheduled to have the biopsy in the morning as well as we will make her NPO at midnight. Until discharge, we will continue to monitor the patient closely and treat appropriately. #[id number] [facility]
[2017-03-13] MEDS ORDERED: SODIUM CHLORIDE 0.9% (FLUSH) 10 ML SYG IV PRN (16:04)
[2017-03-13] MEDS ORDERED: DEXTROSE 50% 25 GM/50 ML SYG IV PRN (16:04)
[2017-03-13] MEDS ORDERED: GLUCAGON INJ 1 MG VIAL SUBCU PRN (16:04)
[2017-03-13] MEDS: INSULIN LISPRO 100 UNITS/ML PEN SUBCU SCH ×2 (16:28→21:23)
[2017-03-13] MEDS ORDERED: IV SET AND CAP CHANGE INJ INJ SCH (16:30)
[2017-03-13] MEDS ORDERED: MAGNESIUM SULFATE PREMIX 2GM 2 GM in PREMIX BAG 1 BAG IVPB ONE (16:57)
[2017-03-13] MEDS ORDERED: MAGNESIUM SULFATE PREMIX 2GM 50 ML IVPB ONE (17:44)
[2017-03-13] MEDS ORDERED: KCL 20 MEQ/NS 1,000 ML IVS PRN (18:37)
--- NOTE | 2017-03-13 23:25 | PCM.CORE ---
Physician DVT/VTE - Contraindications Mechanical Device Contraindication: Procedure contraindicated - needle aspiration - Nurse DVT Assessment & Total Each Risk Factor Represents 3 Points: Age over 75 years Each Risk Factor is 1 Point: Obesity (BMI >25) DVT Assessment Score: 4 - 5 or more Very High Risk Treatments: Early Ambulation *, Sequential Compression Device
[2017-03-14] MEDS: INSULIN LISPRO 100 UNITS/ML PEN SUBCU SCH ×2 (00:13→06:14)
[2017-03-14 06:22] VITALS: BP 167/75; TEMP 98.2; O2SAT 96
[2017-03-14] MEDS ORDERED: NEOMYCIN-BACITRACIN-POLYMYXIN 0.9 GM UD TOP ONE (09:56)
--- NOTE | 2017-03-14 11:02 | US ---
EXAM DESCRIPTION: Biopsy/Needle Guidance: Ultrasound. CLINICAL HISTORY: ABDOMINAL MASS COMPARISON: CT scan of the abdomen with contrast outside imaging facility February 2017. TECHNIQUE: Procedure explained to the patient with risks and benefits. Patient gave verbal and written consent. Supine on ultrasound table. Transcutaneous scanning: Two-dimensional mode, prior to the procedure to localize the mass in the anterior midline lower abdomen and upper pelvis. Sterile preparation and draping. Local skin anesthetic, Xylocaine 1% with sodium bicarbonate, prior to incision, made overlying the central mass. 14 gauge Bard Monopty 9/11 cm core biopsy system was utilized without trocar introducer. 4 samples were obtained of the mass:. No immediate complications. Patient return to observation room in good condition. FINDINGS: Inhomogeneous oval-shaped hypoechoic mass with heterogeneous echoes and mostly posterior acoustic enhancement. The anterior mass is 2.5 cm below the skin surface and approximately 3.5 cm thick. Multiple images demonstrate the biopsy needle within the mass. The samples were mendiola to reddish in color with mucus consistency and brownish-red fluid also drained from the biopsy site. The wound was sutured and dressing was applied. The patient tolerated the procedure well with no immediate complications. IMPRESSION: Successful, ultrasound-guided core biopsy of lower abdominal upper pelvic mass. Adequate samples obtained. Pending pathologic examination at remote facility. Electronically signed by: Junior Croft MD 03/14/2017 11:02 AM REGIONAL EDUCATION COORDINATOR
--- NOTE | 2017-03-15 08:24 | DS ---
SUPERVISING PHYSICIAN: Palmer Sanchez MD DISCHARGE DIAGNOSIS: 1. Near syncopal episode with a same level fall from a seated position with a closed head injury, mild contusion to the forehead attributed to a hypoglycemic event with the patient being on Lantus 43 units at night as well as metformin and Jardiance with no CT evidence of intracranial hemorrhage or traumatic injury. 2. Type 2 diabetes mellitus with both oral and insulin therapy with questionable hypoglycemic episodes contributed to by the patient's noncompliance with nutritional plan. 3. Anorexia and weight loss within the last month, felt to be secondary to possible intraabdominal/pelvic mass. 4. Chronic obstructive pulmonary disease with no signs of exacerbation. 5. Recent history of right lower lobe pneumonia being treated on 02/03/17 to completion. 6. Gastroesophageal reflux disease. 7. Hypertension, stable. 8. Hypothyroidism on supplementation with normal TSH. 9. History of lupus. 10. History of left sided lung cancer with total pneumonectomy in 2004. 11. Mild renal insufficiency, possibly secondary to prerenal azotemia due to dehydration and poor nutritional status, showing improvement after IV therapy. REASON FOR HOSPITALIZATION: Ms. Gomez is a 77-year-old, female patient of Dr. Anderson'rg that was seen in the Emergency Room on date of admission at [facility] after she had slid out of bed earlier in the morning and had struck her head and nose on the bedrail. She is unsure whether she actually passed out, but it was noted that her blood sugar was low reading in the 60s according to her daughter. Her daughter then went to work that morning and called to check on her and noted that on the phone she sounded like she was slurring her speech and was not making any sense, at which point she went home, called 911 and EMS checked and her blood sugar was in the 40s. She came to the Emergency Room and was treated for hypoglycemia. She does have a history of syncopal episodes in the past and is a type 2 diabetic on both insulin and oral therapy. She takes Lantus at night, 43 units, and according to her family, she has not been eating her normal diet during the day or taking any snacks at night , but continues to take the same dose of Lantus and has been waking up in the mornings with some low blood sugars. The Emergency Room physician, Dr. Junior Mckeon at [facility], requested the patient be transferred to [place] for observation due to the fact that she is scheduled to have a needle biopsy the morning after admission at [facility]. The patient requested to be transferred as well. The patient has been recently diagnosed with an intrapelvic mass and has been attempting to get the needle biopsy completed and requested that she be transferred here in efforts that she could be discharged early enough to get the biopsy completed on the morning of discharge. Transfer was arranged and the patient was transferred to the Medical /Surgical Floor at [facility] via ambulance. She was placed in observation in stable condition. LABORATORY: CBC on admission showed white count 6,200 with hemoglobin 11.7, hematocrit 35.3, platelet count 134,000, differential within normal limits. Coagulation studies showed normal PT 12.1, INR 1.07, PT-T 27.7. Chemistries showed initial potassium of 3.5 with BUN 26, glucose 75, calcium 9.5. Her electrolytes were normal at discharge with BUN 19, creatinine 0.96, glucose 129 , serum osmolality 279, calcium 9.1. Lipid panel showed triglycerides 187 with normal cholesterol of 131 and LDL of 69 with low HDL of 28. TSH 3.66. Urinalysis showed 250 glucose, otherwise within normal limits. MICROBIOLOGY: No specimens submitted. RADIOLOGY: No radiographic studies were completed at [facility]. She had a CT of the head and face performed at [facility] in the Emergency Department and per those reports, CT of the head and face showed no evidence of fractures. There was note of some sinus disease. CT of the head without contrast showed no acute intracranial processes noted. There were chronic changes of the brain in the right side with sphenoid sinus disease per radiologic interpretation. HOSPITAL COURSE: Ms. Gomez was admitted on 03/13/17 in stable condition and placed in observation. She had no further syncopal episodes. Her blood sugars remained stable. The patient remained stable and is stable upon discharge. After given some IV fluids, she clinically improved and was able to be discharged to continue with her plans to have the biopsy done. PLAN: Ms. Gomez was discharged on 03/14/17 with instructions to followup with Dr. Anderson in 2 weeks or sooner. She was to resume her home medications as instructed. She was instructed to decrease her Lantus to 30 units in the morning rather than at bedtime and to eat a night time snack to prevent low blood sugars. She was encouraged to take good meals and eat at least 3 times a day along with frequent snacks. She was to check her blood sugar at least 3 times a day and take this log with her to her appointment to see Dr. Anderson. She was told to return to the hospital or call Dr. Anderson should she have any concerning symptoms. At discharge, diet was to be a diabetic diet. She was to increase activity. Medications at discharge included all her medications as per previous to admission including Lasix 40 mg daily and Lantus 30 units subcutaneously at breakfast. Condition at discharge was stable and improved. #[id number] [facility]
== END 2017-03-14 08:55 | disposition home or self-care (01) ==
LOC: MS 15:46
PROVIDERS: ADMIT Nurse Practitioner Family; ATTEND Nurse Practitioner Family
DX: R55 Syncope and collapse (principal); S00.83XA Contusion of other part of head, initial encounter; E11.649 Type 2 diabetes mellitus with hypoglycemia without coma; R63.0 Anorexia; R19.09 Other intra-abdominal and pelvic swelling, mass and lump; E83.42 Hypomagnesemia; E87.6 Hypokalemia; J44.9 Chronic obstructive pulmonary disease, unspecified; K21.9 Gastro-esophageal reflux disease without esophagitis; I10 Essential (primary) hypertension; E03.9 Hypothyroidism, unspecified; M32.9 Systemic lupus erythematosus, unspecified; N28.9 Disorder of kidney and ureter, unspecified; W06.XXXA Fall from bed, initial encounter; Y92.003 Bedroom of unspecified non-institutional (private) residence as the place of occurrence of the external cause; Z79.4 Long term (current) use of insulin; Z91.11 Patient's noncompliance with dietary regimen; Z79.1 Long term (current) use of non-steroidal anti-inflammatories (NSAID); Z79.82 Long term (current) use of aspirin; Z79.899 Other long term (current) drug therapy; Z87.01 Personal history of pneumonia (recurrent); Z85.118 Personal history of other malignant neoplasm of bronchus and lung; Z87.891 Personal history of nicotine dependence
CPT/HCPCS: 36415 ×4; 36416 ×4; 49180; 80048 ×2; 80061; 81001; 82948 ×4; 83735; 84443; 85025; 85610; 85730; 93005; 94760 ×3; 96365; G0378; J3475; J3480

== ENCOUNTER → 2017-03-14 | Outpatient (CLI) | payer MEDICARE, BC | LOC: US 09:32 | PROVIDERS: ATTEND Surgery | DX: D49.89 Neoplasm of unspecified behavior of other specified sites (principal) ==

== ENCOUNTER → 2017-03-25 | Outpatient (CLI) | payer BC, MEDICARE | LOC: GMAB 13:21 | PROVIDERS: ATTEND Family Medicine | DX: C34.12 Malignant neoplasm of upper lobe, left bronchus or lung (principal); D69.6 Thrombocytopenia, unspecified ==

== ENCOUNTER → 2017-04-26 | Outpatient (CLI) | payer BC, MEDICARE | LOC: BFHH 14:58 | PROVIDERS: ATTEND Family Medicine | DX: R30.0 Dysuria (principal); Z79.84 Long term (current) use of oral hypoglycemic drugs ==

== ENCOUNTER → 2017-05-05 | Outpatient (CLI) | payer MEDICARE, BC ==
--- NOTE | 2017-05-05 12:33 | CT ---
EXAM DESCRIPTION: Abdomen/Pelvis w/o Contrast CLINICAL HISTORY: 77 years, Female, N/V COMPARISON: None. TECHNIQUE: CT of the abdomen and pelvis is performed according to our non contrast protocol. FINDINGS: Heart and mediastinum are shifted to the left. Patient may be status post left pneumonectomy with small amount of pleural fluid or pleural thickening present posteriorly on the left. Ectatic pulmonary arteries are consistent with pulmonary hypertension. Coronary artery calcification is extensive. The inferior portion of the right middle lobe and right lower lobe appear clear except for minimal plaque along the right major fissure. Linear scar in the right middle lobe is incidentally noted. Implanted metallic device in the left chest is noted deep to the medial left breast. Liver, spleen, and pancreas are unremarkable. Small right renal lesion may be a cyst. Correlate with sonography. The right kidney is otherwise unremarkable. The left kidney is unremarkable. No renal stones or hydronephrosis. Renal vascular calcifications are present. Aorta is calcified with no aneurysm. There is no lymphadenopathy, inflammation, or free fluid observed. Surgical changes in the anterior abdomen are noted with small fluid collections anterior to the rectus abdominis muscles. A small fluid collection within the left rectus abdominis muscle is seen extending inferiorly to the dome of the bladder. No gas bubbles are seen to suggest that these fluid collections are infected. If the surgery was recent, findings are consistent with small postoperative seromas or resolving hematomas. Normal adrenal glands. In the pelvis, no inflammation is seen around the terminal ileum or cecum. Appendix is not identified and may be surgically absent. Question visualization of a small appendiceal stump (axial image 70, series 6). No inflammation is seen around the sigmoid colon. Moderate amount of fecal material seen in the colon proximal to the sigmoid level. No rectal mass or rectal wall thickening. Slight thickening of the bladder wall is noted. Correlate with urinalysis. Uterus and ovaries are not seen, evidently surgically absent. Degenerative changes are prominent in the lower lumbar spine, hips and pubic symphysis. Coronal and sagittal reformatted images confirm the findings. IMPRESSION: Anterior abdominal fluid collections likely related to recent surgery. See above. Right renal lesion probably a cyst. Status post left pneumonectomy. Large heart with coronary calcification. This exam was performed according to our departmental dose-optimization program, which includes automated exposure control, adjustment of the mA and/or kV according to patient size and/or use of iterative reconstruction technique. Total DLP equals 2421.79 mGycm. Electronically signed by: Glenroy Danielle MD 05/05/2017 12:33 PM CDT
== END ==
LOC: CT 11:48
PROVIDERS: ATTEND Family Medicine
DX: R11.2 Nausea with vomiting, unspecified (principal); Z79.899 Other long term (current) drug therapy; Z98.890 Other specified postprocedural states

== ENCOUNTER → 2017-07-21 | Outpatient (CLI) | payer MEDICARE, BC ==
--- NOTE | 2017-07-22 07:46 | US ---
EXAM DESCRIPTION: Venous,Lower Extremity RT CLINICAL HISTORY: CELLULITIS OF LOWER LIMB COMPARISON: None Available. TECHNIQUE: Right lower extremity venous duplex FINDINGS: Doppler evaluation of the right lower extremity deep veins was performed. Normal color flow is seen in the common femoral, superficial femoral, profunda femoral and greater saphenous veins. Normal flow is seen in the popliteal vein and veins below the knee in the calf. Normal venous compressibility and flow augmentation. IMPRESSION: Negative for evidence of deep venous thrombosis on right lower extremity venous Doppler sonogram. Electronically signed by: Glenroy Danielle MD 07/22/2017 7:45 AM CDT
== END ==
LOC: US 10:21
PROVIDERS: ATTEND Family Medicine
DX: M79.661 Pain in right lower leg (principal); M84.471A Pathological fracture, right ankle, initial encounter for fracture; L03.115 Cellulitis of right lower limb

== ENCOUNTER 2017-08-01 02:33 | Emergency (ER) | payer MEDICARE, BC ==
--- NOTE | 2017-08-01 02:55 | ED.PDOC ---
History of Present Illness - General Chief Complaint: Trauma Stated Complaint: fell out of bed and hit face on ground Time Seen by Provider: 08/01/17 02:35 Source: patient, family Exam Limitations: no limitations - History of Present Illness Initial Comments: Mel Gomez 77 y/o female stated she rolled off her bed then fell to the floor face down with dull pain on her nose and forehead after incident.No LOC remembers incident.Denies neck pains,hip,chest pains.Has history of DM2,Lung CA. Occurred: just prior to arrival Severity: moderate Injuries/Pain Location: face Reason for Fall: other - see hpi Loss of Consciousness: no loss of consciousness Improving Factors: nothing Worsening Factors: nothing Associated Symptoms (Fall): headache, other - abrasions Allergies/Adverse Reactions: Allergies NO KNOWN ALLERGY Allergy (Verified 08/01/17 03:01) Home Medications: Ambulatory Orders Ascorbic Acid [Vitamin C] 500 mg PO DAILY 07/01/14 Aspirin [Aspirin EC] 81 mg PO DAILY 07/01/14 B-Complex Vitamins [Vitamin B Complex] 1 tab PO DAILY 07/01/14 Calcium [Chelated Calcium] 200 mg PO DAILY 07/01/14 Digoxin [Lanoxin] 0.25 mg PO DAILY 07/01/14 Gabapentin [Neurontin] 300 mg PO BID 07/01/14 Lisinopril 20 mg PO BEDTIME 07/01/14 Meloxicam 15 mg PO BEDTIME 07/01/14 Multiple Vitamins W/ Minerals [Centrum Silver] 1 ea PO DAILY 07/01/14 Potassium Chloride [Potassium Chloride ER] 10 meq PO DAILY 07/01/14 Raloxifene HCl [Evista] 60 mg PO DAILY 07/01/14 Metformin HCl 1,000 mg PO BID 01/18/17 Albuterol Sulfate Nebs [Proventil Nebs] 2.5 mg NEB PRN PRN vial 01/24/17 Ipratropium/Albuterol [Duoneb] 3 ml INH RTQID vial 01/24/17 Melatonin 6 mg PO BEDTIME 01/24/17 Metoprolol Tartrate [Lopressor] 12.5 mg PO BIDFD tab 01/24/17 Empagliflozin [Jardiance] 10 mg PO DAILY #30 tab 02/02/17 Escitalopram [Lexapro] 10 mg PO DAILY #30 tab 12/13/17 Furosemide [Lasix] 40 mg PO DAILY #30 tab 03/13/17 Insulin Glargine [Lantus Solostar] 30 unit SC DAILYBK #1 unit 03/13/17 Review of Systems - Review of Systems Constitutional: States: no symptoms reported EENTM: States: see HPI, nose pain Respiratory: States: no symptoms reported Cardiology: States: no symptoms reported Gastrointestinal/Abdominal: States: no symptoms reported Genitourinary: States: no symptoms reported Musculoskeletal: States: see HPI, other - also has right ankle fracture -one week ago appt .with ortho in [place] this week Skin: States: see HPI Neurological: States: no symptoms reported All other Systems: Reviewed and Negative, No Change from Baseline Past Medical History (General) - Patient Medical History Hx Seizures: No Hx Stroke: No Hx Asthma: No Hx of COPD: No Hx Cardiac Disorders: Yes - pericardial window, bradycardia Hx Congestive Heart Failure: No Hx Pacemaker: No Hx Hypertension: Yes Hx Diabetes: Yes Hx Cancer: Yes - lung Hx MRSA: No Surgical History: appendectomy, cholecystectomy, other - left lung resection; hysterectomy - Vaccination History Hx Influenza Vaccination: No - 2015 Hx Pneumococcal Vaccination: Yes - Social History Hx Tobacco Use: No Hx Alcohol Use: No Hx Substance Use: No Hx Physical Abuse: No Hx Emotional Abuse: No - Activities of Daily Living Patient Lives Alone: No - daughter Grooming Ability: Standby Assistance Eating (Feeding) Ability: Standby Assistance Toileting Ability: Standby Assistance Physical Exam - Physical Exam General Appearance: Alert, Comfortable, No apparent distress Head Injury: tenderness - forehead Eye Exam: bilateral normal ENT Exam: hearing grossly normal, no dental injury, other - tenderness bridge of nose Peripheral Pulses: radial,right: 2+, radial,left: 2+ Cardiovascular/Respiratory: regular rate, rhythm, normal peripheral pulses Gastrointestinal/Abdominal: normal bowel sounds, non tender, soft Back Exam: normal inspection, no CVA tenderness, no vertebral tenderness Extremity Exam: no evidence of injury, normal range of motion, non-tender, no pedal edema, pelvis stable Neurologic: alert, abnormal cerebellar tests Skin Exam: normal color, warm/dry - Chantelle Coma Score Best Eye Response ([place]): (4) open spontaneously Best Verbal Response (Chantelle): (5) oriented Best Motor Response (Chantelle): (6) obeys commands Chantelle Total: 15 Progress - Progress Progress: 08/01/17 03:04 Vital Signs - 8 hr 08/01/17 02:40 Temperature 96.6 F L Pulse Rate [ 63 monitor] Respiratory 20 Rate Blood Pressure 153/75 [Right Arm] O2 Sat by Pulse 100 Oximetry Departure - Departure Clinical Impression: Fall from bed, initial encounter, Abrasion, left knee, initial encounter Contusion of face Qualifiers: Encounter type: initial encounter Qualified Code(s): S00.83XA - Contusion of other part of head, initial encounter Diabetes Qualifiers: Diabetes mellitus type: type 2 Diabetes mellitus complication status: with unspecified complications 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 Copy, Patient Portal Self Enrollment Instructions: DI for Contusion, DI for Abrasion Referrals: Sadi Anderson MD [Primary Care Provider] - 1-2 Weeks Home Medications: Ambulatory Orders Ascorbic Acid [Vitamin C] 500 mg PO DAILY 07/01/14 Aspirin [Aspirin EC] 81 mg PO DAILY 07/01/14 B-Complex Vitamins [Vitamin B Complex] 1 tab PO DAILY 07/01/14 Calcium [Chelated Calcium] 200 mg PO DAILY 07/01/14 Digoxin [Lanoxin] 0.25 mg PO DAILY 07/01/14 Gabapentin [Neurontin] 300 mg PO BID 07/01/14 Lisinopril 20 mg PO BEDTIME 07/01/14 Meloxicam 15 mg PO BEDTIME 07/01/14 Multiple Vitamins W/ Minerals [Centrum Silver] 1 ea PO DAILY 07/01/14 Potassium Chloride [Potassium Chloride ER] 10 meq PO DAILY 07/01/14 Raloxifene HCl [Evista] 60 mg PO DAILY 07/01/14 Metformin HCl 1,000 mg PO BID 01/18/17 Albuterol Sulfate Nebs [Proventil Nebs] 2.5 mg NEB PRN PRN vial 01/24/17 Ipratropium/Albuterol [Duoneb] 3 ml INH RTQID vial 01/24/17 Melatonin 6 mg PO BEDTIME 01/24/17 Metoprolol Tartrate [Lopressor] 12.5 mg PO BIDFD tab 01/24/17 Empagliflozin [Jardiance] 10 mg PO DAILY #30 tab 02/02/17 Escitalopram [Lexapro] 10 mg PO DAILY #30 tab 02/02/17 Furosemide [Lasix] 40 mg PO DAILY #30 tab 03/13/17 Insulin Glargine [Lantus Solostar] 30 unit SC DAILYBK #1 unit 03/13/17 Additional Instructions: Return to ER as needed;Continue with all home medications
[2017-08-01] MEDS ORDERED: TETANUS,DIPHTHERIA,PERTUSSIS 1 EA SYG IM ONE (02:59)
[2017-08-01 03:01] VITALS: TEMP 96.6; O2SAT 100
--- NOTE | 2017-08-01 03:53 | CT ---
CT head without contrast on 08/01/2017 CLINICAL INDICATION: Headache after fall TECHNIQUE: Multiple axial images are obtained throughout the head without the administration of contrast. This exam was performed according to our departmental dose-optimization program, which includes automated exposure control, adjustment of the mA and/or kV according to patient size and/or use of iterative reconstruction technique. Total DLP is 859.97 mGy*cm. COMPARISON: None FINDINGS: There is mild generalized cerebral atrophy. There is mild low density in the periventricular white matter consistent with chronic small vessel ischemic changes. There is no hydrocephalus. There is no hemorrhage. There are no abnormal extra-axial fluid collections. There is no mass, mass effect or midline shift. There is no CT evidence of acute infarct. No bony abnormality is noted. IMPRESSION: Mild atrophy and chronic small vessel ischemic changes with no acute intracranial abnormality. Electronically signed by: Heath Villatoro 08/01/2017 3:52 AM CDT
--- NOTE | 2017-08-01 03:55 | RAD ---
Left knee three view on 08/01/2017 Clinical indications: Knee pain after fall COMPARISON: 09/30/2015 FINDINGS: There is mild joint space narrowing in the medial and patellofemoral compartments with minimal osteophyte formation along the medial femoral condyle and medial tibial plateau and dorsal aspect of the patella consistent with mild changes of osteoarthritis. No joint effusion is noted. Mild vascular calcifications are noted. There are no fractures. Visualized joints are well aligned. There is mild calcification of the lateral meniscus consistent with chondrocalcinosis and CPPD. IMPRESSION: Mild changes of osteoarthritis and CPPD with no acute bony abnormality. Electronically signed by: Heath Villatoro 08/01/2017 3:54 AM CDT
[2017-08-01 04:09] VITALS: BP 155/88
== END 2017-08-01 04:23 | disposition home or self-care (01) ==
LOC: ER 02:33
DX: S00.83XA Contusion of other part of head, initial encounter (principal); R00.1 Bradycardia, unspecified; I10 Essential (primary) hypertension; E11.9 Type 2 diabetes mellitus without complications; S80.212A Abrasion, left knee, initial encounter; Z79.4 Long term (current) use of insulin; Z23 Encounter for immunization; W06.XXXA Fall from bed, initial encounter

== ENCOUNTER → 2017-09-05 | Outpatient (CLI) | payer MEDICARE, BC | LOC: GMAE 13:40 | PROVIDERS: ATTEND Family Medicine | DX: I10 Essential (primary) hypertension (principal); E11.9 Type 2 diabetes mellitus without complications ==

== ENCOUNTER → 2017-09-22 | Outpatient (CLI) | payer BC, MEDICARE | LOC: GMAE 14:31 | PROVIDERS: ATTEND Family Medicine | DX: C34.12 Malignant neoplasm of upper lobe, left bronchus or lung (principal); D69.6 Thrombocytopenia, unspecified ==

== ENCOUNTER → 2017-10-27 | Outpatient (CLI) | payer MEDICARE | LOC: GMAE 11:55 | PROVIDERS: ATTEND Family Medicine | DX: E83.42 Hypomagnesemia (principal) ==

== ENCOUNTER 2017-11-05 11:39 | Emergency (ER) | payer MEDICARE ==
--- NOTE | 2017-11-05 12:05 | ED.PDOC ---
History of Present Illness - General Chief Complaint: Lower Extremity Injury Time Seen by Provider: 11/05/17 12:02 Source: patient, Vital Signs reviewed Additional Information: 77 YEAR OLD FELL LAST EVENING AT HER HOME AND INJURED HER LEFT ANKLE SHE HAS HISTORY OF VERTIGO THAT GEING FOLLOWED BY HER PCP SHE HAS HISTORY OF TYPE II DM CAD AND SHE HAD INJURY TO THE SAME RIGHT ANKLE FEW MONTHS AGO SHE HAS NOW HEALED FROM THAT INJURY PER HER DAUGHTER - History of Present Illness Occurred: yesterday Pain - Lower Extremity: severe: Right Ankle Method of Injury: fell Improving Factors: immobilization Worsening Factors: movement Allergies/Adverse Reactions: Allergies NO KNOWN ALLERGY Allergy (Verified 08/01/17 03:01) Home Medications: Ambulatory Orders Ascorbic Acid [Vitamin C] 500 mg PO DAILY 07/01/14 Aspirin [Aspirin EC] 81 mg PO DAILY 07/01/14 B-Complex Vitamins [Vitamin B Complex] 1 tab PO DAILY 07/01/14 Calcium [Chelated Calcium] 200 mg PO DAILY 07/01/14 Digoxin [Lanoxin] 0.25 mg PO DAILY 07/01/14 Gabapentin [Neurontin] 300 mg PO BID 07/01/14 Lisinopril 20 mg PO BEDTIME 07/01/14 Meloxicam 15 mg PO BEDTIME 07/01/14 Multiple Vitamins W/ Minerals [Centrum Silver] 1 ea PO DAILY 07/01/14 Potassium Chloride [Potassium Chloride ER] 10 meq PO DAILY 07/01/14 Raloxifene HCl [Evista] 60 mg PO DAILY 07/01/14 Metformin HCl 1,000 mg PO BID 01/18/17 Albuterol Sulfate Nebs [Proventil Nebs] 2.5 mg NEB PRN PRN vial 01/24/17 Ipratropium/Albuterol [Duoneb] 3 ml INH RTQID vial 01/24/17 Melatonin 6 mg PO BEDTIME 01/24/17 Metoprolol Tartrate [Lopressor] 12.5 mg PO BIDFD tab 01/24/17 Empagliflozin [Jardiance] 10 mg PO DAILY #30 tab 02/02/17 Escitalopram [Lexapro] 10 mg PO DAILY #30 tab 02/02/17 Furosemide [Lasix] 40 mg PO DAILY #30 tab 03/13/17 Insulin Glargine [Lantus Solostar] 15 unit SC QAM 08/01/17 Review of Systems - Review of Systems Constitutional: States: no symptoms reported EENTM: States: no symptoms reported Respiratory: States: no symptoms reported Cardiology: States: no symptoms reported Gastrointestinal/Abdominal: States: no symptoms reported Genitourinary: States: no symptoms reported Musculoskeletal: States: see HPI Skin: States: no symptoms reported Neurological: States: no symptoms reported Endocrine: States: no symptoms reported Hematologic/Lymphatic: States: no symptoms reported Past Medical History (General) - Patient Medical History Hx Seizures: No Hx Stroke: No Hx Dementia: No Hx Asthma: No Hx of COPD: No Hx Cardiac Disorders: Yes - pericardial window, bradycardia Hx Congestive Heart Failure: No Hx Pacemaker: No Hx Hypertension: Yes Hx Thyroid Disease: No Hx Diabetes: Yes Hx Gastroesophageal Reflux: No Hx Renal Disease: No Hx Cancer: Yes - lung Hx of HIV: No Hx MRSA: No - Vaccination History Hx Influenza Vaccination: No - 2015 Hx Pneumococcal Vaccination: Yes - Social History Hx Tobacco Use: No Hx Alcohol Use: No Hx Substance Use: No Hx Physical Abuse: No Hx Emotional Abuse: No Family Medical History - Family History Father Living Status: Hx Family Asthma: No Hx Family Congestive Heart Failure: No Hx Family Hypertension: Yes Hx Family Stroke: No Hx Cardiac Disease: Yes Hx Family Diabetes: No Hx Family Cancer: Yes Mother Living Status: Hx Family Asthma: Yes Hx Family Congestive Heart Failure: No Hx Family Hypertension: No Hx Family Stroke: No Hx Cardiac Disease: No Hx Family Diabetes: No Hx Family Cancer: Yes Physical Exam - Physical Exam General Appearance: Alert, Comfortable Eyes, Ears, Nose, Throat: PERRL/EOMI, normal ENT inspection, TMs normal Neck: non-tender, full range of motion, supple Cardiovascular/Respiratory: regular rate, rhythm, no M/R/G, normal peripheral pulses Gastrointestinal/Abdominal: non-tender, no organomegaly, no hernia Back: normal inspection, no CVA tenderness, no vertebral tenderness Thigh/Hip: normal inspection, non-tender, no evidence of injury Leg: normal inspection, non-tender, no evidence of injury Knee: normal inspection, non-tender, no evidence of injury Ankle: other - RIGHT ANKLE SWOLLEN NO DISCOLORATION NO DEFORTMITY LATERAL MALLEOLAR TENDERNESS NOTED Foot: normal inspection Progress - Results/Orders Results/Orders: X RAY OF THE RIGHT ANKLE OLD FRACTURE (( NON UNION )) OF THE MEDIAL MALLEOLUS NO NEW FRACTURE NOTED FOLLOW UP WITH HER ORTHO SUGGEST NON WEIGHT BEARING SPLINT ELEVATE REST AND ICE TILL THEN Departure - Departure Clinical Impression: Non-union of fracture Time of Disposition: 12:50 Disposition: Discharge to Home or Self Care Condition: Fair Departure Forms: ED Discharge - Pt. Copy, Patient Portal Self Enrollment Instructions: DI for Leg Pain Diet: resume usual diet Activity: ambulate only with walker, no exercise Home Medications: Ambulatory Orders Ascorbic Acid [Vitamin C] 500 mg PO DAILY 07/01/14 Aspirin [Aspirin EC] 81 mg PO DAILY 07/01/14 B-Complex Vitamins [Vitamin B Complex] 1 tab PO DAILY 07/01/14 Calcium [Chelated Calcium] 200 mg PO DAILY 07/01/14 Digoxin [Lanoxin] 0.25 mg PO DAILY 07/01/14 Gabapentin [Neurontin] 300 mg PO BID 07/01/14 Lisinopril 20 mg PO BEDTIME 07/01/14 Meloxicam 15 mg PO BEDTIME 07/01/14 Multiple Vitamins W/ Minerals [Centrum Silver] 1 ea PO DAILY 07/01/14 Potassium Chloride [Potassium Chloride ER] 10 meq PO DAILY 07/01/14 Raloxifene HCl [Evista] 60 mg PO DAILY 07/01/14 Metformin HCl 1,000 mg PO BID 01/18/17 Albuterol Sulfate Nebs [Proventil Nebs] 2.5 mg NEB PRN PRN vial 01/24/17 Ipratropium/Albuterol [Duoneb] 3 ml INH RTQID vial 01/24/17 Melatonin 6 mg PO BEDTIME 01/24/17 Metoprolol Tartrate [Lopressor] 12.5 mg PO BIDFD tab 01/24/17 Empagliflozin [Jardiance] 10 mg PO DAILY #30 tab 02/02/17 Escitalopram [Lexapro] 10 mg PO DAILY #30 tab 02/02/17 Furosemide [Lasix] 40 mg PO DAILY #30 tab 03/13/17 Insulin Glargine [Lantus Solostar] 15 unit SC QAM 08/01/17
[2017-11-05 12:07] VITALS: BP 133/62; TEMP 97; O2SAT 98
--- NOTE | 2017-11-05 12:52 | RAD ---
EXAM DESCRIPTION: Ankle,Right 3 Views CLINICAL HISTORY: FALL COMPARISON: July 19, 2017 FINDINGS: Three x-ray views of the right ankle were submitted. Well-corticated oblique lucency along the medial malleolus compatible with an old fracture with incomplete bony fusion. There is an enthesophyte at the plantar aspect of the calcaneus and insertion of the Achilles tendon. There is soft tissue swelling. Bone mineralization is within normal limits. There is no radiopaque foreign body material. IMPRESSION: Soft tissue swelling. Well-corticated lucency along the medial malleolus compatible with an old fracture with incomplete bony union. Electronically signed by: Aayush Limon MD 11/05/2017 12:51 PM CDT
== END 2017-11-05 13:05 | disposition home or self-care (01) ==
LOC: ER 11:39
DX: S82.51XA Displaced fracture of medial malleolus of right tibia, initial encounter for closed fracture (principal); R42 Dizziness and giddiness; E11.9 Type 2 diabetes mellitus without complications; I25.10 Atherosclerotic heart disease of native coronary artery without angina pectoris; I10 Essential (primary) hypertension; W18.39XA Other fall on same level, initial encounter; Z85.118 Personal history of other malignant neoplasm of bronchus and lung; Z79.82 Long term (current) use of aspirin; Z87.891 Personal history of nicotine dependence; Z79.899 Other long term (current) drug therapy; Y92.009 Unspecified place in unspecified non-institutional (private) residence as the place of occurrence of the external cause

== ENCOUNTER → 2017-11-16 | Outpatient (CLI) | payer MEDICARE, BC ==
--- NOTE | 2017-11-17 08:09 | MRI ---
EXAM DESCRIPTION: MRI right shoulder CLINICAL HISTORY: Shoulder pain. COMPARISON: None. TECHNIQUE: Multiplanar, multisequence MR images of the right shoulder FINDINGS: Diffuse supraspinatus tendinosis with abnormal signal from the myotendinous junction to the insertion. Structurally significant high-grade partial tear of the supraspinatus involving the interstitial and bursal side of the tendon spanning about 10 mm anteroposterior. Medial lateral extent of tear about 8 mm. Muscle volume is mildly decreased with grade 1 fatty infiltration Interstitial insertional partial tear of the anterior infraspinatus tendon with mild diffuse tendinosis otherwise. Mild muscle volume loss and grade 1 fatty infiltration Teres minor tendon and muscle are normal Subscapularis tendinosis with high-grade partial articular and interstitial tear and thinning of the tendon, approximately 70% with full-thickness tear sparing thin bursal fibers. The muscle volume is moderately decreased with grade 1 fatty infiltration Biceps tenosynovitis. Large volume fluid in the biceps tendon sheath. Tendinosis with medial subluxation along the lesser tuberosity and partial interstitial tear of the tendon intra-articular and along the upper bicipital groove. Degenerative signal in the labral anchor. No acute labral detachment No full-thickness chondrosis or chronic osteochondral lesion of the glenohumeral joint. Small joint effusion Moderate acromioclavicular osteoarthritis. Prominent clavicle osteophyte indenting the supraspinatus. Anterior lateral downsloping of the acromion with prominent inferior acromial spur and minimal edema in the acromion IMPRESSION: Structurally significant high-grade partial insertional tear of the supraspinatus tendon superimposed on diffuse tendinosis. Tear affects the interstitial and bursal side of the tendon Structurally significant chronic partial tear of the subscapularis sparing the bursal side of the tendon Long segment severe biceps tendinosis with interstitial partial tear Electronically signed by: Palmer Luu MD 11/17/2017 8:08 AM CDT
== END ==
LOC: MRI 10:10
PROVIDERS: ATTEND Family Medicine
DX: S43.421D Sprain of right rotator cuff capsule, subsequent encounter (principal)

== ENCOUNTER → 2017-12-30 | Outpatient (CLI) | payer MEDICARE, BC ==
--- NOTE | 2018-01-02 16:21 | MAM ---
EXAM DESCRIPTION: 3D Screening BILATERAL : Digital Mammography. CLINICAL HISTORY: 77 years Female SCREENING . No complaints. No personal or family history of breast cancer. Childbirth. Hysterectomy 36 years ago. No HRT. Lifetime risk of developing breast cancer (Tyrer-Cuzick model)(%): 2.7. COMPARISON: 2-D digital screening bilateral mammography 08/10/2016. No prior reports available. TECHNIQUE: Bilateral CC and MLO projection full-field images, digital tomosynthesis mammographic technique. Bilateral digital 2-D full-field MLO images. CAD not available for tomosynthesis or 2-D images. FINDINGS: The breast parenchymal density pattern is: Heterogeneously dense breast tissue, which may obscure small masses. No skin thickening or nipple retraction. Bilateral solitary microcalcifications. Bilateral vascular calcifications. Bilateral coarse calcifications. Wireless transmitter superimposed over the posterior left breast obscuring some of the breast tissue. Right axillary lymph nodes. No new focal, stellate mass or density, focal asymmetry , and no suspicious microcalcifications bilaterally. Stable mammograms compared to prior study. Taking into account, differences in mammographic technique. IMPRESSION: Benign exam. BIRAD CATEGORY: 2 BENIGN FINDINGS. RECOMMENDATIONS: FOLLOW UP: Routine digital bilateral mammographic screening, one year interval from December 2017. Written communication explaining the IMPRESSION and follow-up, will be mailed to the patient and referring health care provider. According to the [employer], yearly mammograms are recommended starting at age 40 and continuing as long as a woman is in good health. Any breast change noted on a breast self-exam should be reported promptly to the patient's healthcare provider. Breast MRI is recommended for women with an approximately 20-25% or greater lifetime risk of breast cancer, including women with a strong family history of breast or ovarian cancer and women who have been treated for Hodgkin's disease. A negative mammographic report should not delay tissue diagnosis in patients with significant clinical history or physical findings. Extremely dense breast tissue limits the sensitivity of digital mammography. Electronically signed by: Junior Croft MD 01/02/2018 4:20 PM MEDICAL ADMINISTRATIVE ASSISTANT
== END ==
LOC: MAMMO 11:30
PROVIDERS: ATTEND Family Medicine
DX: Z12.31 Encounter for screening mammogram for malignant neoplasm of breast (principal)

== ENCOUNTER → 2018-04-27 | Outpatient (CLI) | payer MEDICARE, BC ==
--- NOTE | 2018-04-27 11:39 | RAD ---
EXAM DESCRIPTION: Fingers,Right CLINICAL HISTORY: 78 years Female, M65.321 TECHNIQUE: 3 views of the right index were performed. FINDINGS: The visualized bones are well-mineralized.No acute fracture or dislocation. Mild degenerative changes are identified in the proximal interphalangeal joint of the right index finger. 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 Electronically signed by: Janelle Praker MD 04/27/2018 11:36 AM [facility]
== END ==
LOC: RAD 08:36
PROVIDERS: ATTEND Orthopaedic Surgery
DX: M65.321 Trigger finger, right index finger (principal); M19.041 Primary osteoarthritis, right hand

== ENCOUNTER → 2018-05-15 | Outpatient (CLI) | payer MEDICARE, BC | LOC: LAB.O 12:47 | PROVIDERS: ATTEND Orthopaedic Surgery | DX: Z01.818 Encounter for other preprocedural examination (principal) ==

== ENCOUNTER 2018-06-06 05:39 | Day surgery (SDC) | payer MEDICARE, BC ==
--- NOTE | 2018-06-03 14:20 | HP ---
CHIEF COMPLAINT: Right hand pain. HISTORY OF PRESENT ILLNESS: Mel is a 78 year-old female with a history of triggering at the right second digit. Mel has had this going on for quite a while and the pain is causing her quite a bit of discomfort. Because of the ongoing symptoms she has requested operative intervention. After discussing the risks, benefits, and alternatives to that she has given informed consent for that. PAST SURGICAL HISTORY: 1. Hysterectomy. 2. Lung lobectomy. 3. Trigger finger release. CURRENT MEDICATIONS: 1. Meclizine. 2. Tylenol #3. 3. Diclofenac. 4. Digoxin. 5. Citalopram. 6. Furosemide. 7. Jardiance. 8. Lantus. 9. Lisinopril. 10. Metoprolol. 11. Omeprazole. 12. Potassium. ALLERGIES: NO KNOWN DRUG ALLERGIES. CODE STATUS: FULL CODE. IMMUNIZATIONS: Up to date. FAMILY HISTORY: None pertinent to today's complaints. SOCIAL HISTORY: She does not drink, smoke or use any illicit drugs. PHYSICAL EXAMINATION: VITAL SIGNS: Blood pressure 117/63, pulse 77, height 5' 7", weight 169. MENTAL STATUS: The patient is awake, alert, and is able to give a good history and participate in the physical. The patient is oriented to person, place and time. SKIN: Normal tone and turgor. MUSCULOSKELETAL: She has palpable triggering at the A-1 ministerio. She has intact sensation and it is warm and well perfused. She has full range of motion, although difficulty with extension secondary to discomfort. ASSESSMENT: 1. Trigger finger. PLAN: The plan at this point is for A-1 ministerio release. We have discussed the risks, benefits, and alternatives to that and she has given informed consent for that. #[id number] MTDD
[2018-06-06] MEDS ORDERED: SODIUM CHL 0.9% 50ML MIN-BAG+ 50 ML IVPB ONE (07:27)
[2018-06-06] MEDS ORDERED: LACTATED RINGERS 1,000 ML ONE (07:27)
[2018-06-06] MEDS ORDERED: ceFAZolin SODIUM 1 GM VIAL ONE ×2 (07:27→08:17)
[2018-06-06] MEDS ORDERED: BUPIVACAINE 0.25% INJ 30 ML VIAL INJ ONE (08:17)
[2018-06-06] MEDS ORDERED: VANCOMYCIN HCL INJ 1,000 MG VIAL IVPB ONE (08:17)
[2018-06-06] MEDS ORDERED: LIDOCAINE 1% 10 ML VIAL INJ ONE ×2 (08:17→10:00)
[2018-06-06] MEDS ORDERED: PROPOFOL 200 MG/20 ML VIAL IV ONE (10:00)
[2018-06-06 12:40] VITALS: TEMP 97.2
[2018-06-06 14:03] VITALS: BP 129/56; O2SAT 99
--- NOTE | 2018-06-07 11:49 | OP ---
DATE OF PROCEDURE: 06/06/18 PREOPERATIVE DIAGNOSIS: 1. Trigger finger. POSTOPERATIVE DIAGNOSIS: 1. Trigger finger. PROCEDURE: 1. Trigger finger release. SURGEON: Jonh Maharaj MD. FRONT COUNTER ATTENDANT: Junior Glass CST, SA-C. ANESTHESIA: Local with sedation. COMPLICATIONS: None. FINDINGS: Triggering at the A1 ministerio. INDICATION: Ms. Gomez has a history of pain associated with her trigger finger. She has tried conservative measures, however, has failed to gain relief. Because of her ongoing pain, she has requested operative intervention. After discussing the risks, benefits and alternatives to operative therapy, the patient has given informed consent for trigger finger release. PROCEDURE: The patient was brought to the Operating Room and placed in the supine position. Sedation was administered and local anesthetic was injected into the operative area. Following injection, the arm was sterilely prepped and draped. A transverse incision was made directly overlying the A1 ministerio of the triggering digit and blunt dissection was carried down to the ministerio while protecting the digital nerves. After identification of the ministerio, the ministerio was transected and a [place] elevator was passed both proximally and distally to ensure complete release. The finger was flexed and extended and there was no evidence of locking or clicking. The wound was thoroughly irrigated and closed with Nylon suture. A sterile dressing was placed and the patient was taken to the Day Surgery Unit. POSTOPERATIVE PLAN: The patient has been instructed to do range of motion of the digits and will followup with us in about two days. #[id number] MTDD
== END 2018-06-06 13:05 | disposition home or self-care (01) ==
LOC: AMB 05:39
PROVIDERS: ATTEND Orthopaedic Surgery
DX: M65.321 Trigger finger, right index finger (principal); Z90.710 Acquired absence of both cervix and uterus; Z90.2 Acquired absence of lung [part of]; Z79.4 Long term (current) use of insulin; Z79.899 Other long term (current) drug therapy
CPT/HCPCS: 01810; 26055; 36416; 80307; 82948; J0690; J3370; J3490; J7050; J7120

== ENCOUNTER → 2018-08-07 | Outpatient (CLI) | payer MEDICARE, BC | LOC: GMAE 14:43 | PROVIDERS: ATTEND Family Medicine | DX: I10 Essential (primary) hypertension (principal); E11.9 Type 2 diabetes mellitus without complications; E83.42 Hypomagnesemia; Z79.4 Long term (current) use of insulin ==

== ENCOUNTER → 2018-09-01 | Day surgery (SDC) | payer MEDICARE, BC ==
[~2018-09-01] MED LIST: ACETAMINOPHEN IV 1000MG 100 ML ONE
== END ==
LOC: AMB 13:00
PROVIDERS: ATTEND Orthopaedic Surgery
DX: Z53.9 Procedure and treatment not carried out, unspecified reason (principal)

== ENCOUNTER 2018-09-09 09:46 | Emergency (ER) | payer MEDICARE, BC ==
[2018-09-09] MEDS ORDERED: SUCRALFATE 1 GM/10 ML 1 GM UD PO ONE (10:14)
[2018-09-09] MEDS ORDERED: ALUM & MAG HYDROX-SIMETHICONE 30 ML, LIDOCAINE VISCOUS 2% 15 ML PO ONE ×2 (10:14)
[2018-09-09] MEDS ORDERED: LIDOCAINE HCL 2% (MOUTH-THROAT) 15 ML UD ONE (10:23)
[2018-09-09] MEDS ORDERED: ALUM & MAG HYDROX-SIMETHICONE 30 ML UD ONE (10:23)
--- NOTE | 2018-09-09 11:04 | RAD ---
EXAM: XR Abdomen 2 Views With XR Chest CLINICAL HISTORY: 78 years old and is Female; epigastric pain TECHNIQUE: Frontal view of the chest, frontal view of the abdomen/pelvis and upright or decubitus view of the abdomen. COMPARISON: No relevant prior studies available. FINDINGS: Limitations: None. Lungs: Left pneumonectomy changes present. Chronic changes noted in the right lung with mild fibrotic changes and bronchial thickening. No consolidation. Pleural space: Unremarkable. No pneumothorax. Heart: Unremarkable. No cardiomegaly. Mediastinum: Unremarkable. Intraperitoneal space: No free air noted under the diaphragm. Gastrointestinal tract: Unremarkable. No dilation. Bones/joints: Degenerative changes present in the spine. IMPRESSION: Chronic changes as above. No acute disease. Electronically signed by: Ronda Restrepo MD 09/09/2018 11:01 AM CDT
[2018-09-09] MEDS ORDERED: MAGNESIUM HYDROXIDE 30 ML UD PO ONE (11:19)
--- NOTE | 2018-09-09 11:22 | ED.PDOC ---
History of Present Illness - General Chief Complaint: GI Problem Time Seen by Provider: 09/09/18 10:05 Source: patient, family Exam Limitations: no limitations - History of Present Illness Initial Comments: the patient is a 78-year-old female presenting to emergency room secondary to epigastric discomfort along with some mild nausea. No vomiting. She has had increased frequency of bowel movements over the last 24 hours. She did start a new medication in the form of Januvia yesterday. Symptoms started soon after that. Additionally she took herself off of omeprazole about 5 or 6 days ago because she was tired of taking so much medication. She does have significant history of gastritis and gastroesophageal reflux disease. No fever. No pulsatile palpable masses. No syncope or near syncope. There is a question of a hiatal hernia in the past. Timing/Duration: 24 hours Severity: mild Improving Factors: nothing Worsening Factors: nothing Associated Symptoms: nausea/vomiting Allergies/Adverse Reactions: Allergies Latex Adverse Reaction (Verified 06/06/18 10:03) Rash Home Medications: Ambulatory Orders Aspirin [Aspirin EC] 81 mg PO DAILY 07/01/14 B-Complex Vitamins [Vitamin B Complex] 1 tab PO DAILY 07/01/14 Digoxin [Lanoxin] 0.125 mg PO DAILY 07/01/14 Gabapentin [Neurontin] 600 mg PO DAILY 07/01/14 Lisinopril 10 mg PO DAILY 07/01/14 Escitalopram [Lexapro] 10 mg PO DAILY #30 tab 02/02/17 Furosemide [Lasix] 40 mg PO DAILY #30 tab 03/13/17 Insulin Glargine [Lantus Solostar] 16 unit SC ACBK 08/01/17 Calcium Carbonate-Cholecalcife [Caltrate 600+D] 1 chw PO DAILY 06/02/18 Magnesium Chloride [Slow-Mag] 64 mg PO BEDTIME 06/02/18 Metoprolol Tartrate [Lopressor] 12.5 mg PO DAILY 06/02/18 Omeprazole [Prilosec Cap] 20 mg PO BEDTIME 06/02/18 Potassium Chloride [K-Tab] 10 meq PO DAILY 06/02/18 Rotigotine [Neupro] 1 mg TD BEDTIME 06/02/18 Gabapentin 600 mg PO NOON 09/09/18 Gabapentin 900 mg PO BEDTIME 09/09/18 SITagliptin [Januvia] 50 mg PO ACBK 09/09/18 Sucralfate Tab [Carafate Tab] 1 gm PO QID #120 tab 09/09/18 Review of Systems - Review of Systems Constitutional: States: no symptoms reported EENTM: States: no symptoms reported Respiratory: States: no symptoms reported Cardiology: States: no symptoms reported Gastrointestinal/Abdominal: States: abdominal pain, nausea. Denies: vomiting Genitourinary: States: no symptoms reported Musculoskeletal: States: no symptoms reported Skin: States: no symptoms reported Neurological: States: no symptoms reported Endocrine: States: no symptoms reported All other Systems: No Change from Baseline Past Medical History (General) - Patient Medical History Hx Seizures: No Hx Stroke: No Hx Dementia: No Hx Asthma: No Hx of COPD: No Hx Cardiac Disorders: Yes Hx Congestive Heart Failure: No Hx Pacemaker: No Hx Hypertension: Yes Hx Thyroid Disease: Yes Hx Diabetes: Yes Hx Gastroesophageal Reflux: Yes Hx Renal Disease: No Hx Cancer: Yes - lung Hx of HIV: No Hx MRSA: No Surgical History: appendectomy, cholecystectomy, Hysterectomy, other - Vaccination History Hx Tetanus, Diphtheria Vaccination: Yes Hx Influenza Vaccination: Yes - 2017 Hx Pneumococcal Vaccination: Yes - 2018 - Social History Hx Tobacco Use: Yes Hx Alcohol Use: No Hx Substance Use: No Hx Physical Abuse: No Hx Emotional Abuse: No Family Medical History - Family History Father Living Status: Hx Family Asthma: No Hx Family Congestive Heart Failure: No Hx Family Hypertension: Yes Hx Family Stroke: No Hx Cardiac Disease: Yes Hx Family Diabetes: No Hx Family Cancer: Yes Mother Living Status: Hx Family Asthma: Yes Hx Family Congestive Heart Failure: No Hx Family Hypertension: No Hx Family Stroke: No Hx Cardiac Disease: No Hx Family Diabetes: No Hx Family Cancer: Yes Physical Exam - Physical Exam General Appearance: Alert, Anxious, No apparent distress Eye Exam: bilateral normal Ears, Nose, Throat: hearing grossly normal, normal ENT inspection, normal pharynx Neck: full range of motion, supple Respiratory: lungs clear, normal breath sounds - decreased on the left due to previous resection, no respiratory distress, no accessory muscle use Cardiovascular/Chest: normal peripheral pulses, no edema, other - regular rate Peripheral Pulses: radial,right: 2+, radial,left: 2+ Gastrointestinal/Abdominal: soft, other - epigastric discomfort palpation. No rebound or peritoneal signs. No palpable pulsatile mass. Rectal Exam: deferred Back Exam: no CVA tenderness, no vertebral tenderness Extremity: no calf tenderness Neurologic: community recreation programmer II-XII nml as tested, alert, normal mood/affect - anxious, oriented x 3 Skin Exam: normal color Comments: Vital Signs - 24 hr 09/09/18 09/09/18 09:54 10:30 Temperature 97.2 F L Pulse Rate [ 59 L 55 L left brachial] Respiratory 22 16 Rate Blood Pressure 155/81 132/80 [left brachial] O2 Sat by Pulse 99 98 Oximetry Progress - Progress Progress: 09/09/18 11:22 the patient is a 78-year-old female presenting with what appears to be a flareup of her gastritis and reflux. She is to restart her omeprazole. I'm going to place her on one month of Carafate. For the next 2 days she needs to hold the Januvia and resume her jardiance. It is possible Januvia may be making the gastritis worse in the short-term. She can also use [id number] Maalox or Mylanta as needed to control symptoms. Obviously if the patient's condition is worsening then additional workup and treatment would be warranted. ER warnings were given. High fiber diet for constipation. ER warnings were given. Follow-up with primary care doctor next week. - Results/Orders Results/Orders: acute abdominal series shows chronic changes as well as some mild constipation. Departure - Departure Clinical Impression: Gastritis Qualifiers: Gastritis type: unspecified gastritis Chronicity: acute Gastritis bleeding: without bleeding Qualified Code(s): K29.00 - Acute gastritis without bleeding Disposition: Discharge to Home or Self Care Condition: Fair Departure Forms: ED Discharge - Pt. Copy, Patient Portal Self Enrollment Instructions: DI for Gastritis, DI for Gastroesophageal Reflux Disease (GERD) Diet: bland diet, diabetic diet Activity: increase activity as tolerated Referrals: KELBY LOVE MD [Primary Care Provider] - 1-2 Weeks Prescriptions: Sucralfate Tab [Carafate Tab] 1 gm PO QID #120 tab Home Medications: Ambulatory Orders Aspirin [Aspirin EC] 81 mg PO DAILY 07/01/14 B-Complex Vitamins [Vitamin B Complex] 1 tab PO DAILY 07/01/14 Digoxin [Lanoxin] 0.125 mg PO DAILY 07/01/14 Gabapentin [Neurontin] 600 mg PO DAILY 07/01/14 Lisinopril 10 mg PO DAILY 07/01/14 Escitalopram [Lexapro] 10 mg PO DAILY #30 tab 02/02/17 Furosemide [Lasix] 40 mg PO DAILY #30 tab 03/13/17 Insulin Glargine [Lantus Solostar] 16 unit SC ACBK 08/01/17 Calcium Carbonate-Cholecalcife [Caltrate 600+D] 1 chw PO DAILY 06/02/18 Magnesium Chloride [Slow-Mag] 64 mg PO BEDTIME 06/02/18 Metoprolol Tartrate [Lopressor] 12.5 mg PO DAILY 06/02/18 Omeprazole [Prilosec Cap] 20 mg PO BEDTIME 06/02/18 Potassium Chloride [K-Tab] 10 meq PO DAILY 06/02/18 Rotigotine [Neupro] 1 mg TD BEDTIME 06/02/18 Gabapentin 600 mg PO NOON 09/09/18 Gabapentin 900 mg PO BEDTIME 09/09/18 SITagliptin [Januvia] 50 mg PO ACBK 09/09/18 Sucralfate Tab [Carafate Tab] 1 gm PO QID #120 tab 09/09/18 Additional Instructions: the patient is a 78-year-old female presenting with what appears to be a flareup of her gastritis and reflux. She is to restart her omeprazole. I'm going to place her on one month of Carafate. For the next 2 days she needs to hold the Januvia and resume her jardiance. It is possible Januvia may be making the gastritis worse in the short-term. She can also use [id number] Maalox or Mylanta as needed to control symptoms. Obviously if the patient's condition is worsening then additional workup and treatment would be warranted. ER warnings were given. High fiber diet for constipation. ER warnings were given. Follow-up with primary care doctor next week.
[2018-09-09 11:24] VITALS: TEMP 97.3
[2018-09-09 11:48] VITALS: BP 133/65; O2SAT 97
== END 2018-09-09 11:35 | disposition home or self-care (01) ==
LOC: ER 09:46
DX: K29.00 Acute gastritis without bleeding (principal); I10 Essential (primary) hypertension; E07.9 Disorder of thyroid, unspecified; E11.9 Type 2 diabetes mellitus without complications; K21.9 Gastro-esophageal reflux disease without esophagitis; I51.9 Heart disease, unspecified; Z90.49 Acquired absence of other specified parts of digestive tract; Z85.118 Personal history of other malignant neoplasm of bronchus and lung; Z87.891 Personal history of nicotine dependence; Z79.899 Other long term (current) drug therapy; Z79.4 Long term (current) use of insulin; Z79.82 Long term (current) use of aspirin; Z91.040 Latex allergy status

== ENCOUNTER 2018-12-31 15:01 | Emergency (ER) | payer MEDICARE, BC ==
--- NOTE | 2018-12-31 16:06 | RAD ---
EXAM DESCRIPTION: Chest,2 Views CLINICAL HISTORY: cough, hx left lung resection COMPARISON: 01/24/2017. TECHNIQUE: PA/lateral FINDINGS/IMPRESSION: Changes of prior left pneumonectomy (with complete left lung white out) and mild leftward mediastinal deviation is stable. Mild right upper lobe peripherally subsegmental atelectasis/scarring. The right lung is otherwise clear without focal consolidation, significant pneumothorax or pleural effusion. The cardiac silhouette is obscured. The aortic knob is partially calcified. No acute osseous abnormality. Left lower chest loop record. Electronically signed by: Jonathon Kinney DO 12/31/2018 4:04 PM [facility]
--- NOTE | 2018-12-31 16:42 | ED.PDOC ---
History of Present Illness - General Chief Complaint: General Stated Complaint: Lethargic, dizzy, cough Time Seen by Provider: 12/31/18 15:03 Source: patient Exam Limitations: no limitations - History of Present Illness Initial Comments: the patient's 78-year-old female presenting to the emergency room secondary to a cough and questionable low-grade fever along with a runny nose for the last day or so. Her roommate has actually had a cold as well. 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 No other significant symptoms. Severity: mild Improving Factors: nothing Worsening Factors: nothing Associated Symptoms: cough, malaise Allergies/Adverse Reactions: Allergies Latex Adverse Reaction (Verified 12/31/18 15:55) Rash Home Medications: Ambulatory Orders Aspirin [Aspirin EC] 81 mg PO DAILY 07/01/14 B-Complex Vitamins [Vitamin B Complex] 1 tab PO DAILY 07/01/14 Digoxin [Lanoxin] 0.125 mg PO DAILY 07/01/14 Lisinopril 10 mg PO DAILY 07/01/14 Escitalopram [Lexapro] 10 mg PO DAILY #30 tab 02/02/17 Furosemide [Lasix] 40 mg PO DAILY #30 tab 03/13/17 Insulin Glargine [Lantus Solostar] 16 unit SC ACBK 08/01/17 Calcium Carbonate-Cholecalcife [Caltrate 600+D] 1 chw PO DAILY 06/02/18 Magnesium Chloride [Slow-Mag] 64 mg PO BEDTIME 06/02/18 Metoprolol Tartrate [Lopressor] 12.5 mg PO DAILY 06/02/18 Omeprazole [Prilosec Cap] 20 mg PO BEDTIME 06/02/18 Potassium Chloride [K-Tab] 10 meq PO DAILY 06/02/18 Gabapentin 600 mg PO NOON 09/09/18 Gabapentin 900 mg PO BEDTIME 09/09/18 SITagliptin [Januvia] 50 mg PO ACBK 09/09/18 Review of Systems - Review of Systems Constitutional: States: malaise EENTM: States: nose congestion Respiratory: States: cough Cardiology: States: no symptoms reported Gastrointestinal/Abdominal: States: no symptoms reported Genitourinary: States: no symptoms reported Musculoskeletal: States: no symptoms reported Skin: States: no symptoms reported Neurological: States: no symptoms reported Endocrine: States: no symptoms reported All other Systems: No Change from Baseline Past Medical History (General) - Patient Medical History Hx Seizures: No Hx Stroke: No Hx Dementia: No Hx Asthma: No Hx of COPD: Yes Hx Cardiac Disorders: No Hx Congestive Heart Failure: No Hx Pacemaker: No Hx Hypertension: Yes Hx Thyroid Disease: Yes Hx Diabetes: Yes Hx Gastroesophageal Reflux: Yes Hx Renal Disease: No Hx Cancer: Yes - Lung Hx of HIV: No Hx MRSA: No Surgical History: appendectomy, cholecystectomy, Hysterectomy - Vaccination History Hx Tetanus, Diphtheria Vaccination: Yes Hx Influenza Vaccination: Yes Hx Pneumococcal Vaccination: Yes Immunizations Up to Date: Yes - Social History Hx Tobacco Use: Yes Hx Alcohol Use: No Hx Substance Use: No Hx Substance Use Treatment: No Hx Depression: No Hx Physical Abuse: No Hx Emotional Abuse: No - Female History Patient is a Female of Child Bearing Age (10 -59 yrs old): No Patient : No Family Medical History - Family History Father Living Status: Hx Family Asthma: No Hx Family Congestive Heart Failure: No Hx Family Hypertension: Yes Hx Family Stroke: No Hx Cardiac Disease: Yes Hx Family Diabetes: No Hx Family Cancer: Yes Mother Living Status: Hx Family Asthma: Yes Hx Family Congestive Heart Failure: No Hx Family Hypertension: No Hx Family Stroke: No Hx Cardiac Disease: No Hx Family Diabetes: No Hx Family Cancer: Yes Physical Exam - Physical Exam General Appearance: Alert, Comfortable, No apparent distress Eye Exam: bilateral normal Ears, Nose, Throat: hearing grossly normal, nasal congestion Neck: full range of motion, supple Respiratory: lungs clear - on the right, normal breath sounds - on the right, no respiratory distress, no accessory muscle use Cardiovascular/Chest: normal peripheral pulses, no edema, other - regular rate Peripheral Pulses: radial,right: 2+, radial,left: 2+ Gastrointestinal/Abdominal: non tender, soft Rectal Exam: deferred Extremity: normal range of motion, no pedal edema, no calf tenderness, normal capillary refill Neurologic: liquid flavor compounder II-XII nml as tested, alert, normal mood/affect, oriented x 3 Skin Exam: normal color Comments: Vital Signs - 24 hr 12/31/18 12/31/18 15:12 15:13 Temperature 99.6 F Pulse Rate [ 63 63 Monitor] Respiratory 20 20 Rate Blood Pressure 158/72 [R brachial] O2 Sat by Pulse 98 Oximetry Progress - Progress Progress: 12/31/18 16:42 the patient is a 78-year-old female presenting to the emergency room secondary to what appears to be a viral upper respiratory tract infection. Chest x-ray and lab work were done to make sure it was not something more significant given her age and surgical history. The results were reassuring. The patient needs to be kept well hydrated. Symptoms will likely last 5-7 days. [id number] Mucinex, Advil or Tylenol may help symptoms as well. She needs to follow back up with her primary care doctor towards the end of the week. ER warnings were given. keke [id number] [id number] - Results/Orders Results/Orders: Laboratory Results - last 24 hr 12/31/18 12/31/18 15:45 15:45 WBC 5.7 RBC 4.21 Hgb 12.2 Hct 36.3 MCV 86.4 MCH 29.0 MCHC 33.6 RDW 13.2 Plt Count 144 MPV 9.5 Absolute Neuts (auto) 4.30 Absolute Lymphs (auto) 0.80 L Absolute Monos (auto) 0.50 Absolute Eos (auto) 0.10 Absolute Basos (auto) 0.00 Neutrophils % 75.5 Lymphocytes % 14.3 L Monocytes % 8.1 Eosinophils % 1.4 Basophils % 0.7 Sodium 137 Potassium 3.9 Chloride 97 L Carbon Dioxide 30 Anion Gap 13.9 BUN 15 Creatinine 1.18 BUN/Creatinine Ratio 12.7 Random Glucose 197 H Serum Osmolality 280.1 Calcium 9.4 Total Bilirubin 0.8 AST 19 ALT 15 Alkaline Phosphatase 72 Serum Total Protein 6.6 Albumin 3.8 Globulin 2.8 Albumin/Globulin Ratio 1.4 two-view chest x-ray shows chronic surgical changes and chronic atelectasis versus scarring. No acute changes otherwise. Departure - Departure Clinical Impression: Viral upper respiratory illness Disposition: Discharge to Home or Self Care Condition: Fair Departure Forms: ED Discharge - Pt. Copy, Patient Portal Self Enrollment Instructions: Viral Upper Respiratory Infection, Adult (DC) Diet: regular diet Activity: increase activity as tolerated Referrals: KELBY LOVE MD [Primary Care Provider] - 1-2 Weeks Home Medications: Ambulatory Orders Aspirin [Aspirin EC] 81 mg PO DAILY 07/01/14 B-Complex Vitamins [Vitamin B Complex] 1 tab PO DAILY 07/01/14 Digoxin [Lanoxin] 0.125 mg PO DAILY 07/01/14 Lisinopril 10 mg PO DAILY 07/01/14 Escitalopram [Lexapro] 10 mg PO DAILY #30 tab 02/02/17 Furosemide [Lasix] 40 mg PO DAILY #30 tab 03/13/17 Insulin Glargine [Lantus Solostar] 16 unit SC ACBK 08/01/17 Calcium Carbonate-Cholecalcife [Caltrate 600+D] 1 chw PO DAILY 06/02/18 Magnesium Chloride [Slow-Mag] 64 mg PO BEDTIME 06/02/18 Metoprolol Tartrate [Lopressor] 12.5 mg PO DAILY 06/02/18 Omeprazole [Prilosec Cap] 20 mg PO BEDTIME 06/02/18 Potassium Chloride [K-Tab] 10 meq PO DAILY 06/02/18 Gabapentin 600 mg PO NOON 09/09/18 Gabapentin 900 mg PO BEDTIME 09/09/18 SITagliptin [Januvia] 50 mg PO ACBK 09/09/18 Additional Instructions: the patient is a 78-year-old female presenting to the emergency room secondary to what appears to be a viral upper respiratory tract infection. Chest x-ray and lab work were done to make sure it was not something more significant given her age and surgical history. The results were reassuring. The patient needs to be kept well hydrated. Symptoms will likely last 5-7 days. [id number] Mucinex, Advil or Tylenol may help symptoms as well. She needs to follow back up with her primary care doctor towards the end of the week. ER warnings were given.
[2018-12-31 17:24] VITALS: BP 166/80; TEMP 99.4; O2SAT 100
== END 2018-12-31 17:15 | disposition home or self-care (01) ==
LOC: ER 15:01
DX: J06.9 Acute upper respiratory infection, unspecified (principal); J44.9 Chronic obstructive pulmonary disease, unspecified; I10 Essential (primary) hypertension; E07.9 Disorder of thyroid, unspecified; E11.9 Type 2 diabetes mellitus without complications; K21.9 Gastro-esophageal reflux disease without esophagitis; Z85.118 Personal history of other malignant neoplasm of bronchus and lung; Z79.899 Other long term (current) drug therapy; Z87.891 Personal history of nicotine dependence; Z90.2 Acquired absence of lung [part of]; Z79.82 Long term (current) use of aspirin; Z79.4 Long term (current) use of insulin

== ENCOUNTER → 2019-06-21 | Outpatient (CLI) | payer MEDICARE, BC | LOC: RESP 10:56 | PROVIDERS: ATTEND Orthopaedic Surgery | DX: Z01.818 Encounter for other preprocedural examination (principal) ==

== ENCOUNTER 2019-07-04 05:19 | Day surgery (SDC) | payer MEDICARE, BC ==
[2019-07-04] MEDS ORDERED: ceFAZolin SODIUM 1 GM VIAL ONE ×2 (05:41→06:33)
[2019-07-04] MEDS ORDERED: SODIUM CHL 0.9% 100ML MINI-BAG 100 ML IVPB ONE (05:41)
[2019-07-04] MEDS ORDERED: LACTATED RINGERS 1,000 ML ONE (05:41)
[2019-07-04] MEDS ORDERED: LEVALBUTEROL NEBS 1.25 MG/3 ML VIAL NEB STA (06:19)
[2019-07-04] MEDS ORDERED: VANCOMYCIN HCL INJ 1,000 MG VIAL IVPB ONE ×2 (06:33→06:55)
[2019-07-04] MEDS ORDERED: BUPIVACAINE LIPOSOME 13.3 MG/ML VIAL INJ ONE ×3 (06:33→07:17)
[2019-07-04] MEDS ORDERED: BUPIVACAINE 0.5% 30 ML VIAL INJ ONE ×2 (06:33→06:55)
[2019-07-04] MEDS ORDERED: KETAMINE HCL 100 MG/ML VIAL ONE (06:37)
[2019-07-04] MEDS ORDERED: MIDAZOLAM INJ 2 MG/2 ML VIAL ONE (06:37)
[2019-07-04] MEDS ORDERED: HYDROmorphone HCL INJ 2 MG/ML VIAL ONE (06:37)
[2019-07-04] MEDS ORDERED: ROCURONIUM BROMIDE 10 MG/ML VIAL ONE (06:46)
[2019-07-04] MEDS ORDERED: ceFAZolin SODIUM 1 GM VIAL IRRIG ONE (06:55)
[2019-07-04] MEDS ORDERED: diphenhydrAMINE HCL 50 MG/ML VIAL ONE (07:00)
[2019-07-04] MEDS ORDERED: GLYCOPYRROLATE 0.2 MG/ML VIAL ONE (07:00)
[2019-07-04] MEDS ORDERED: KETOROLAC TROMETHAMINE INJ 30 MG/ML VIAL ONE (07:00)
[2019-07-04] MEDS ORDERED: MAGNESIUM SULFATE INJ 1 GM/2 ML VIAL ONE (07:00)
[2019-07-04] MEDS ORDERED: DEXAMETHASONE INJ 10 MG/ML VIAL ONE (07:00)
[2019-07-04] MEDS ORDERED: ePHEDrine SULF 50 MG/ML ONE (07:00)
[2019-07-04] MEDS ORDERED: PROPOFOL 200 MG/20 ML VIAL IV ONE (07:00)
[2019-07-04] MEDS ORDERED: LIDOCAINE 1% 10 ML VIAL INJ ONE (07:00)
[2019-07-04] MEDS ORDERED: SODIUM CHLORIDE 0.9% 50 ML VIAL ONE (07:00)
[2019-07-04 09:48] VITALS: TEMP 97.3
[2019-07-04] MEDS ORDERED: BENZOCAINE-MENTH LOZ (CEPACOL) 1 EA LOZ MT ONE (10:12)
[2019-07-04 11:02] VITALS: BP 130/61; O2SAT 96
--- NOTE | 2019-07-06 10:22 | OP ---
DATE OF PROCEDURE: 07/04/19 PREOPERATIVE DIAGNOSIS: 1. Right rotator cuff syndrome. POSTOPERATIVE DIAGNOSIS: 1. Right rotator cuff syndrome. PROCEDURE: 1. Rotator cuff repair. 2. Acromioplasty. SURGEON: Jonh Maharaj MD. HEAD OF STORE OPERATIONS: Junior Glass CST, SA-C. ANESTHESIA: General anesthesia. COMPLICATIONS: None. FINDINGS: 1. Approximately 2 cm tear in the supraspinatus. 2. Type 2 acromion with overhanging osteophytes. INDICATION: Ms. Gomez has a history of severe shoulder pain that has been refractory to conservative measures. Because of the ongoing refractory nature of her diagnosis and the limitations in activities, she requested operative intervention. After discussing the risks, benefits and alternatives to that, the patient has given informed consent for the above procedure. PROCEDURE: The patient was brought to the Operating Room and placed in the supine position. General anesthesia was induced and the patient was transitioned into the beach chair position. The arm and shoulder were sterilely prepped and draped. Following prepping and draping, an incision was made at the lateral border of the acromion. Full thickness skin flaps were developed and the deltoid was split between the anterior and middle heads. A bursectomy and acromioplasty were performed. The rotator cuff was identified. The tear in the supraspinatus was identified and the tendon end was debrided. There was a bony debridement at the footprint of the supraspinatus. A SpeedBridge type construct was used to reapproximate the tendon. The tendon was reapproximated well and the arm was taken through a range of motion. There was no motion at the repair site. The wound was very thoroughly irrigated and the deltoid was reapproximated. Following reapproximation of the deltoid, the skin was closed with Nylon suture. Sterile dressings were placed. The patient was placed in a sling. The patient was awoken from anesthesia and taken to Recovery. POSTOPERATIVE PLAN: She will be limited with regards to range of motion and will do no lifting. We will see her back in two days. #[id number] MTDD
== END 2019-07-04 10:45 | disposition home or self-care (01) ==
LOC: AMB 05:19
PROVIDERS: ATTEND Orthopaedic Surgery
DX: M75.121 Complete rotator cuff tear or rupture of right shoulder, not specified as traumatic (principal); M19.90 Unspecified osteoarthritis, unspecified site; M81.0 Age-related osteoporosis without current pathological fracture; E11.22 Type 2 diabetes mellitus with diabetic chronic kidney disease; I12.9 Hypertensive chronic kidney disease with stage 1 through stage 4 chronic kidney disease, or unspecified chronic kidney disease; N18.9 Chronic kidney disease, unspecified; E07.9 Disorder of thyroid, unspecified; K21.9 Gastro-esophageal reflux disease without esophagitis; E66.9 Obesity, unspecified; M32.9 Systemic lupus erythematosus, unspecified; Z91.040 Latex allergy status; Z79.84 Long term (current) use of oral hypoglycemic drugs; Z79.899 Other long term (current) drug therapy; Z85.118 Personal history of other malignant neoplasm of bronchus and lung
CPT/HCPCS: 01610; 0232T; 23130; 23412; 36416; 80307; 82948; 94640; A4216; J0690; J1100; J1170; J1200; J1885; J2250; J3370; J3475; J3490; J7050; J7120

== ENCOUNTER 2019-08-05 11:40 | Emergency (ER) | payer MEDICARE, BC ==
--- NOTE | 2019-08-05 11:43 | ED.PDOC ---
History of Present Illness - General Chief Complaint: Trauma Time Seen by Provider: 08/05/19 11:41 Source: patient, RN notes reviewed, Vital Signs reviewed Additional Information: 79yo F h/o recent shoulder surgery presents s/p fall. Patient reportedly ambulating without her walker inside the house, was dizzy, and attempted to grab onto trashcan and fell. Reportedly hit back of head on wall. Family denies LOC, seizure, bleeding, abnormal behavior, chest pain, or other complaints. Family reports she would like patient's "shoulder checked out" as well. Reports aspirin use. No other complaints at this time. - History of Present Illness Allergies/Adverse Reactions: Allergies Latex Adverse Reaction (Verified 08/05/19 12:09) Rash Home Medications: Ambulatory Orders Aspirin [Aspirin EC] 81 mg PO BEDTIME 07/01/14 B-Complex Vitamins [Vitamin B Complex] 1 tab PO DAILY 07/01/14 Digoxin [Lanoxin] 0.125 mg PO DAILY 07/01/14 Lisinopril 10 mg PO DAILY 07/01/14 Escitalopram [Lexapro] 10 mg PO DAILY #30 tab 02/02/17 Furosemide [Lasix] 40 mg PO DAILY #30 tab 03/13/17 Insulin Glargine [Lantus Solostar] 24 unit SC QAM 08/01/17 Calcium Carbonate-Cholecalcife [Caltrate 600+D] 1 chw PO BID 06/02/18 Magnesium Chloride [Slow-Mag] 71.5 mg PO BEDTIME 06/02/18 Metoprolol Tartrate [Lopressor] 12.5 mg PO DAILY 06/02/18 Omeprazole [Prilosec Cap] 20 mg PO BEDTIME 06/02/18 Potassium Chloride [K-Tab] 10 meq PO DAILY 06/02/18 Gabapentin 600 mg PO TID 09/09/18 Gabapentin 900 mg PO BEDTIME 09/09/18 SITagliptin [Januvia] 50 mg PO QAM 09/09/18 Albuterol Sulfate 1.25 mg IN PRN 07/02/19 Umeclidinium-Vilanterol [Anoro Ellipta 62.5-25 Mcg/INH] 1 aer IN DAILY 07/02/19 Review of Systems - Review of Systems Constitutional: States: no symptoms reported EENTM: States: no symptoms reported Respiratory: States: no symptoms reported Cardiology: States: no symptoms reported Musculoskeletal: States: no symptoms reported Skin: States: no symptoms reported Neurological: States: headache, other - dizziness All other Systems: Reviewed and Negative Past Medical History (General) - Patient Medical History Hx Seizures: No Hx Stroke: No Hx Dementia: No Hx Asthma: No Hx of COPD: Yes Hx Cardiac Disorders: No Hx Congestive Heart Failure: No Hx Pacemaker: No Hx Hypertension: Yes Hx Thyroid Disease: Yes Hx Diabetes: Yes - FSBS 173 Hx Gastroesophageal Reflux: Yes Hx Renal Disease: No Hx Cancer: Yes - Lung Hx of HIV: No Hx MRSA: No MRSA Source:: NOSE - Vaccination History Hx Tetanus, Diphtheria Vaccination: Yes Hx Influenza Vaccination: Yes Hx Pneumococcal Vaccination: Yes - Social History Hx Tobacco Use: Yes Hx Alcohol Use: No Hx Substance Use: No Hx Substance Use Treatment: No Hx Depression: No Hx Physical Abuse: No Hx Emotional Abuse: No - Female History Patient : No Family Medical History - Family History Father Living Status: Hx Family Asthma: No Hx Family Congestive Heart Failure: No Hx Family Hypertension: Yes Hx Family Stroke: No Hx Cardiac Disease: Yes Hx Family Diabetes: No Hx Family Cancer: Yes Mother Living Status: Hx Family Asthma: Yes Hx Family Congestive Heart Failure: No Hx Family Hypertension: No Hx Family Stroke: No Hx Cardiac Disease: No Hx Family Diabetes: No Hx Family Cancer: Yes Physical Exam - Physical Exam General Appearance: Alert, Comfortable, No apparent distress, Well Nourished Eye Exam: bilateral normal Ears, Nose, Throat: hearing grossly normal Neck: non-tender, full range of motion, other - no carotid bruit Respiratory: chest non-tender, lungs clear, no respiratory distress, no accessory muscle use Cardiovascular/Chest: normal peripheral pulses, regular rate, rhythm, no edema Peripheral Pulses: radial,right: 2+, radial,left: 2+ Gastrointestinal/Abdominal: normal bowel sounds, non tender, soft Back Exam: normal inspection, no CVA tenderness Extremity: normal range of motion, non-tender, normal inspection, other - RUE: @2+ radial/ulnar pulses, intact light touch sensation, FROM hand/wrist, right shoulder with well-healed surgical site and in sling Neurologic: tar pot man II-XII nml as tested, no motor/sensory deficits, alert, other - no nystagmus, normal [id number], no clonus, no rigidity, moves all extremities spontaneously Skin Exam: normal color, warm/dry Progress - Progress Progress: 08/05/19 13:30 History with unclear precipitants of dizziness (does not appear vertiginous), and no noted exam findings to clearly indicate central etiology or need for emergent imaging. No focal/lateralizing deficits noted. Ambulatory with normal gait using cane. No reported chest pain, SOB, or syncope. Does not appear septic. Patient and family reported this is a chronic problem, unchanged and similar to prior episodes. Asymptomatic on recheck. Low suspicion for CVA, ACS or aortic pathology. Discussed labs and imaging with patient and family, and they agreed with plan of care and desired discharge. Does not appear acutely dangerous intracranial or peripheral pathology at this visit. ED warnings given and outpatient f/u with PCP. Joce Strong, #[id number] 08/05/19 13:32 - EKG/XRAY/CT EKG: Sinus, RBBB Comments: 1147 NSR rate67, normal axis, RBBB, no STEMI, RBBB present 02/2017 as well Departure - Departure Clinical Impression: Dizziness, Fall Time of Disposition: 13:33 Disposition: Discharge to Home or Self Care Condition: Good Departure Forms: ED Discharge - Pt. Copy, Patient Portal Self Enrollment Instructions: DI for Trauma, Preventing Falls in the Older Adult, Dizziness, Nonvertigo, (DC) Activity: as per physical therapy Referrals: KELBY LOVE MD [Primary Care Provider] - 1-2 Weeks Home Medications: Ambulatory Orders Aspirin [Aspirin EC] 81 mg PO BEDTIME 07/01/14 B-Complex Vitamins [Vitamin B Complex] 1 tab PO DAILY 07/01/14 Digoxin [Lanoxin] 0.125 mg PO DAILY 07/01/14 Lisinopril 10 mg PO DAILY 07/01/14 Escitalopram [Lexapro] 10 mg PO DAILY #30 tab 02/02/17 Furosemide [Lasix] 40 mg PO DAILY #30 tab 03/13/17 Insulin Glargine [Lantus Solostar] 24 unit SC QAM 08/01/17 Calcium Carbonate-Cholecalcife [Caltrate 600+D] 1 chw PO BID 06/02/18 Magnesium Chloride [Slow-Mag] 71.5 mg PO BEDTIME 06/02/18 Metoprolol Tartrate [Lopressor] 12.5 mg PO DAILY 06/02/18 Omeprazole [Prilosec Cap] 20 mg PO BEDTIME 06/02/18 Potassium Chloride [K-Tab] 10 meq PO DAILY 06/02/18 Gabapentin 600 mg PO TID 09/09/18 Gabapentin 900 mg PO BEDTIME 09/09/18 SITagliptin [Januvia] 50 mg PO QAM 09/09/18 Albuterol Sulfate 1.25 mg IN PRN 07/02/19 Umeclidinium-Vilanterol [Anoro Ellipta 62.5-25 Mcg/INH] 1 aer IN DAILY 07/02/19 Additional Instructions: You were seen in the [facility] Emergency Department today. Please fill and take the medications as prescribed (if any) and if you were prescribed antibiotics, please complete the full course. You will need further evaluation on an out patient basis. You must follow up with the listed locations and within the time frames indicated in your discharge paperwork (including your PCP in 3-5 days). Failure to follow up with any studies or doctor visits within the timeframe mentioned could result in poor outcome. Your examination today in the ED did not reveal a new or old problem that required immediate surgery or admission to the hospital. However, you should return to the ED if you are not improving as instructed (especially within the first 6 to 24 hours). This may include things such as uncontrolled vomiting, shortness of breath, fever, bleeding, or severe pain in a body part. You should return for any new or worsening emergency symptoms such as chest pain, severe headache, confusion, or severe abdominal pain. Finally, return to the emergency department if you have any concerns not mentioned above that are concerning to you or if you are unable to follow up as instructed above. Thank you for coming to [facility]. It was our pleasure to serve you today and we thank you for your visit.
--- NOTE | 2019-08-05 13:18 | RAD ---
EXAM: XR Chest, 1 View CLINICAL HISTORY: pain s/p fall TECHNIQUE: Frontal view of the chest. COMPARISON: 12/31/2018. FINDINGS: Lungs: Interstitial and parenchymal scarring in the right lung unchanged. Pleural space: Unremarkable. No pneumothorax. Heart: Unremarkable. No cardiomegaly. Mediastinum: Unremarkable. Bones/joints: Unremarkable. Tubes, lines and devices: Cardiac loop recorder unchanged. Upper abdomen: Stable left nephrectomy changes. IMPRESSION: Chronic changes as above. No acute disease. Electronically signed by: Ronda Restrepo MD 08/05/2019 1:16 PM CDT
--- NOTE | 2019-08-05 13:21 | RAD ---
EXAM: XR Pelvis, 1 or 2 Views CLINICAL HISTORY: pain s/p fall TECHNIQUE: Frontal view of the pelvis. COMPARISON: No relevant prior studies available. FINDINGS: Bones/joints: Unremarkable. No acute fracture. No dislocation. Soft tissues: Unremarkable. IMPRESSION: No fracture. Electronically signed by: Ronda Restrepo MD 08/05/2019 1:17 PM CDT
--- NOTE | 2019-08-05 13:23 | RAD ---
EXAM: XR Right Shoulder Complete, 2 or More Views CLINICAL HISTORY: pain s/p fall TECHNIQUE: Two or more views of the right shoulder. COMPARISON: No relevant prior studies available. FINDINGS: Bones/joints: Unremarkable. No acute fracture. No dislocation. Soft tissues: Unremarkable. IMPRESSION: No acute abnormality noted. Electronically signed by: Ronda Restrepo MD 08/05/2019 1:18 PM CDT
--- NOTE | 2019-08-05 13:25 | CT ---
CT CERVICAL SPINE WITHOUT IV CONTRAST, CT HEAD WITHOUT IV CONTRAST CLINICAL STATEMENT: pain s/p fall This exam was performed according to our departmental dose-optimization program which includes automated exposure control, adjustment of the mA and/or kVp according to patient size and/or use of iterative reconstruction technique where applicable. FINDINGS: Head: No acute intracranial hemorrhage, mass effect or midline shift. No extra-axial fluid collections. Ventricles and subarachnoid spaces are mildly dilated consistent with cerebral atrophy. Mild patchy hypodense areas in periventricular white matter both cerebral hemispheres consistent with chronic small vessel ischemic changes. Visualized paranasal sinuses and the mastoid air cells are clear. The skull is intact. Cervical spine: Vertebral body heights are intact. Moderate degenerative changes at C5-6 and C6-7. Minimal grade 1 anterolisthesis of C4 versus C5. No significant prevertebral soft tissue swelling. Odontoid process is intact. IMPRESSION: No acute intracranial hemorrhage. Mild chronic ischemic changes. No cervical fracture or subluxation. Electronically signed by: Bo Szymanski MD 08/05/2019 1:23 PM CDT
[2019-08-05 13:50] VITALS: O2SAT 98
[2019-08-05 13:54] VITALS: BP 130/79; TEMP 97.8
== END 2019-08-05 13:40 | disposition home or self-care (01) ==
LOC: ER 11:40
DX: R42 Dizziness and giddiness (principal); J44.9 Chronic obstructive pulmonary disease, unspecified; I10 Essential (primary) hypertension; E11.9 Type 2 diabetes mellitus without complications; I45.10 Unspecified right bundle-branch block; Z87.891 Personal history of nicotine dependence; Z79.82 Long term (current) use of aspirin; Z79.4 Long term (current) use of insulin; Z79.899 Other long term (current) drug therapy; W19.XXXA Unspecified fall, initial encounter; Y92.009 Unspecified place in unspecified non-institutional (private) residence as the place of occurrence of the external cause

== ENCOUNTER → 2019-09-04 | Outpatient (CLI) | payer MEDICARE, BC | LOC: GMAE 14:25 | PROVIDERS: ATTEND Family Medicine | DX: D51.1 Vitamin B12 deficiency anemia due to selective vitamin B12 malabsorption with proteinuria (principal); I50.9 Heart failure, unspecified; I10 Essential (primary) hypertension; E11.40 Type 2 diabetes mellitus with diabetic neuropathy, unspecified ==

== ENCOUNTER → 2019-09-24 | Outpatient (CLI) | payer MEDICARE, BC | LOC: GMAE 14:49 | PROVIDERS: ATTEND Family Medicine | DX: D69.6 Thrombocytopenia, unspecified (principal); C34.12 Malignant neoplasm of upper lobe, left bronchus or lung; Z85.118 Personal history of other malignant neoplasm of bronchus and lung ==

== ENCOUNTER → 2019-11-23 | Outpatient (CLI) | payer MEDICARE, BC | LOC: GMAE 12:47 | PROVIDERS: ATTEND Family Medicine | DX: C34.12 Malignant neoplasm of upper lobe, left bronchus or lung (principal) ==

== ENCOUNTER → 2019-12-12 | Outpatient (CLI) | payer MEDICARE, BC ==
--- NOTE | 2019-12-13 11:01 | MRI ---
EXAM DESCRIPTION: Lumbar Spine w/o Contrast : Magnetic Resonance Imaging. CLINICAL HISTORY: RADICULOPATHY LUMBAR REGION COMPARISON: Radiographs lumbar spine October 03 TECHNIQUE: Multiplanar, multiple standard sequences, non contrast MRI, lumbar spine. FINDINGS: L5-S1: The disc is well visualized on axial T2 series 501, image 3. Disc desiccation and minimal disc space loss. Trace retrolisthesis. Posterior disc and spur bulge into the canal. Also bulging to the bilateral foramina with the disc abutting the exiting left L5 nerve in the left foramen. Disc and spur bulge with moderate narrowing right foramen. Hypertrophy of the posterior flavum ligaments and the bilateral facet joints (canal elements). Mild canal narrowing L4-L5: Mild to moderate endplate reactive changes beginning to the right of midline and extending to the left with disc osteophyte complex encroaching on the paravertebral soft tissues and left foramen abutting the left L4 nerve. Also posterior bulging. Mild hypertrophic changes in the canal elements. AP canal diameter 11 mm. Right subarticular recess narrowing. Disc bulge into the right foramen narrowing the right foramen. Large anterior left bulging spur. L3-L4: Disc desiccation and moderate disc space loss. Schmorl's nodes both endplates in the midline. 3 mm grade 1 anterolisthesis. Posterior broad-based disc bulge with endplate spurs. Right paracentral 5 mm protrusion. Moderate hypertrophic changes in the canal elements. AP canal diameter 5.5 mm. Narrowing of the right subarticular recess and disc-spur abutting the right L4 nerve. Moderate to severe narrowing right foramen and moderate narrowing left foramen abutting the exiting nerves. L2-L3: Disc desiccation with posterior disc space loss and minimal bulging. Schmorl's node superior L3 endplate. Hypertrophic changes in the canal elements. AP canal diameter 10 mm. Bilateral mild foraminal narrowing right more than left. L1-L2: Disc desiccation and minimal disc space loss. Schmorl's nodes superior and inferior endplates. Minimal posterior bulge. Hypertrophic changes mild in the canal elements. AP canal diameter 10 mm. T12-L1: Disc desiccation, disc space loss, and Schmorl's nodes in the endplates. Minimal hypertrophic changes in the canal elements. Mild canal narrowing. Bilateral foramina are patent. Conus terminates at L1. L1-L3 levoscoliosis. Paravertebral soft tissues muscular atrophy.. Distal cord normal signal and caliber. Normal marrow signal in the remaining vertebral bodies and the posterior elements. Vertebral bodies are not compressed at any level. IMPRESSION: 1. Spondylosis at multiple levels with disc space narrowing and disc desiccation. Multiple levels of disc spur complex formation encroaching on the canal and foramina. Multilevel hypertrophy/arthrosis of the posterior flavum ligaments and facet joints. 2. Left side spondylosis at L5-S1 abutting the left L5 nerve in the foramen. Posterior spondylosis and disc spur complex encroaching on the canal. 3. Severe central canal stenosis L3-L4 is multifactorial. Right paracentral 5 mm protrusion disc. Encroaching on the right subarticular recess and the right L4 nerve. Grade 1 anterolisthesis. 4. Left side spondylosis with disc spur complex encroaching the left foramen, left paravertebral soft tissues, and the left L4 nerve. 5. Please refer to FINDINGS for discussion of results at other disc space levels. Electronically signed by: Junior Croft MD 12/13/2019 10:59 AM CDT
== END ==
LOC: MRI 08:25
PROVIDERS: ATTEND Family Medicine Sports Medicine
DX: M47.26 Other spondylosis with radiculopathy, lumbar region (principal); M51.16 Intervertebral disc disorders with radiculopathy, lumbar region; M47.897 Other spondylosis, lumbosacral region; M48.062 Spinal stenosis, lumbar region with neurogenic claudication; M24.28 Disorder of ligament, vertebrae; M43.16 Spondylolisthesis, lumbar region; M25.78 Osteophyte, vertebrae; E11.22 Type 2 diabetes mellitus with diabetic chronic kidney disease

== ENCOUNTER 2019-12-24 05:43 | Day surgery (SDC) | payer MEDICARE, BC ==
[2019-12-24] MEDS ORDERED: LIDOCAINE 1% 10 ML VIAL INJ ONE (07:25)
[2019-12-24] MEDS ORDERED: BETAMETHASONE ACETATE/BETAMETH 6 MG/ML VIAL IM ONE (07:25)
[2019-12-24] MEDS ORDERED: BUPIVACAINE 0.5% 30 ML VIAL INJ ONE (07:25)
[2019-12-24] MEDS ORDERED: DEXAMETHASONE INJ 10 MG/ML VIAL IM ONE (09:36)
== END 2019-12-24 10:15 | disposition home or self-care (01) ==
LOC: AMB 05:43
PROVIDERS: ATTEND Family Medicine Sports Medicine
DX: M54.5 Low back pain (principal); M54.16 Radiculopathy, lumbar region; M47.896 Other spondylosis, lumbar region; M46.1 Sacroiliitis, not elsewhere classified; E11.9 Type 2 diabetes mellitus without complications; K21.9 Gastro-esophageal reflux disease without esophagitis; I10 Essential (primary) hypertension; E03.9 Hypothyroidism, unspecified; Z85.118 Personal history of other malignant neoplasm of bronchus and lung; Z87.891 Personal history of nicotine dependence; Z79.4 Long term (current) use of insulin; Z79.82 Long term (current) use of aspirin; Z79.51 Long term (current) use of inhaled steroids; Z79.899 Other long term (current) drug therapy

== ENCOUNTER 2020-01-07 05:19 | Day surgery (SDC) | payer MEDICARE, BC ==
[2020-01-07] MEDS ORDERED: BETAMETHASONE ACETATE/BETAMETH 6 MG/ML VIAL IM ONE (07:31)
[2020-01-07] MEDS ORDERED: LIDOCAINE 1% 10 ML VIAL INJ ONE (07:31)
[2020-01-07] MEDS ORDERED: BUPIVACAINE 0.5% 30 ML VIAL INJ ONE (07:31)
[2020-01-07] MEDS ORDERED: DEXAMETHASONE INJ 10 MG/ML VIAL ONE ×2 (08:52→10:46)
== END 2020-01-07 10:50 | disposition home or self-care (01) ==
LOC: AMB 05:19
PROVIDERS: ATTEND Family Medicine Sports Medicine
DX: M54.5 Low back pain (principal); M54.16 Radiculopathy, lumbar region; M47.896 Other spondylosis, lumbar region; M46.1 Sacroiliitis, not elsewhere classified; E11.9 Type 2 diabetes mellitus without complications; K21.9 Gastro-esophageal reflux disease without esophagitis; I10 Essential (primary) hypertension; E03.9 Hypothyroidism, unspecified; Z90.710 Acquired absence of both cervix and uterus; Z85.118 Personal history of other malignant neoplasm of bronchus and lung; Z87.891 Personal history of nicotine dependence; Z79.899 Other long term (current) drug therapy
CPT/HCPCS: 64483; 64484; 76000; J1100

== ENCOUNTER 2020-02-04 05:31 | Day surgery (SDC) | payer MEDICARE, BC ==
[2020-02-04] MEDS ORDERED: BUPIVACAINE 0.5% 30 ML VIAL INJ ONE ×4 (07:29→10:58)
[2020-02-04] MEDS ORDERED: LIDOCAINE 1% 10 ML VIAL INJ ONE ×3 (07:29→10:58)
[2020-02-04] MEDS ORDERED: BETAMETHASONE ACETATE/BETAMETH 6 MG/ML VIAL IM ONE (07:54)
[2020-02-04] MEDS ORDERED: DEXAMETHASONE INJ 10 MG/ML VIAL ONE ×2 (08:00→11:29)
[2020-02-04] MEDS ORDERED: DEXAMETHASONE INJ 10 MG/ML VIAL IM ONE ×2 (10:55→10:58)
== END 2020-02-04 11:28 | disposition home or self-care (01) ==
LOC: AMB 05:31
PROVIDERS: ATTEND Family Medicine Sports Medicine
DX: M54.5 Low back pain (principal); M54.16 Radiculopathy, lumbar region; M47.896 Other spondylosis, lumbar region; E11.9 Type 2 diabetes mellitus without complications; K21.9 Gastro-esophageal reflux disease without esophagitis; I10 Essential (primary) hypertension; E03.9 Hypothyroidism, unspecified; Z85.118 Personal history of other malignant neoplasm of bronchus and lung; Z90.710 Acquired absence of both cervix and uterus; Z87.891 Personal history of nicotine dependence; Z79.82 Long term (current) use of aspirin; Z79.51 Long term (current) use of inhaled steroids; Z79.899 Other long term (current) drug therapy
CPT/HCPCS: 36416; 64483; 64484; 82948; J1100

== ENCOUNTER → 2020-02-27 | Outpatient (CLI) | payer MEDICARE, BC | LOC: GMALS 14:22 | PROVIDERS: ATTEND Nurse Practitioner Acute Care | DX: D51.1 Vitamin B12 deficiency anemia due to selective vitamin B12 malabsorption with proteinuria (principal) ==